=== PATIENT | female | born 1990 | race Caucasian/White ===

== ENCOUNTER 2022-03-11 03:11 | Inpatient (IN) | payer OTHER, SELFPAY ==
[2022-03-11] VITALS (32 sets, daily range): BP systolic 88–137; BP diastolic 34–79; PULSE 92–121; RESP 21–39; TEMP 36.7–39.1; O2SAT 94–100; BMI 27.6
--- NOTE | ~2022-03-11 | CT_ITS ---
EXAMINATION: CTA chest PE abdomen pel DATE: 03/11/2022 10:00 INDICATION: Chest pain. TECHNIQUE: Computed tomography angiography (CTA) of the chest was performed with 100 mL Omnipaque-350 intravenous contrast timed to evaluate the pulmonary arteries. Coronal maximum intensity projection 3D-reconstructions were created by the technologist. Computed tomography (CT) of the abdomen and pelv is was performed with intravenous contrast. Automated exposure control and iterative reconstruction t echnique were employed. The dose-length product was 815.75 mGy-cm. COMPARISON: None. FINDINGS: CTA chest: The lungs demonstrate diffuse smooth septal thickening. There are nodules and patchy airsp lilly opacities involving all lobes. There are small right and moderate-sized left pleural effusions. T he heart size is normal. There is a small pericardial effusion. There is no pulmonary embolus. There is mediastinal and bilateral hilar lymphadenopathy. A left supraclavicular node measures [address] abdomen and pelvis: There is periportal edema in the liver. There are gallstones in the gallbladde r, which is distended. Gallbladder wall thickening is noted. There is moderate splenomegaly. The panc reas, adrenal glands, and kidneys are normal. There is a 4.8 cm mass in left ovary measuring soft tis marilu attenuation. There are no dilated loops of bowel. The appendix is normal. There is a catheter in right common femoral vein with tip in right common iliac vein. There is mild periportal lymphadenopat hy. There is no free intraperitoneal fluid. The bones are unremarkable. IMPRESSION: 1. No pulmonary embolus. Sensitivity is mildly decreased by motion artifact. 2. Diffuse lung disease, likely a combination of pulmonary edema and pneumonia. 3. Small right and moderate-sized left pleural effusions. 4. Small pericardial effusion. 5. Mediastinal, left supraclavicular, and periportal lymphadenopathy, likely reactive. 6. Cholelithiasis. Gallbladder distention may be secondary to fasting or acute cholecystitis. Correla te with physical exam. 7. 4.8 m mass in left ovary, most likely a hemorrhagic cyst. Pelvis ultrasound is recommended. 8. Moderate splenomegaly. Reviewed, dictated and finalized at location A. CHECKER IMPRESSION: 1. No pulmonary embolus. Sensitivity is mildly decreased by motion artifact. 2. Diffuse lung disease, likely a combination of pulmonary edema and pneumonia. 3. Small right and moderate-sized left pleural effusions. 4. Small pericardial effusion. 5. Mediastinal, left supraclavicular, and periportal lymphadenopathy, likely re active. 6. Cholelithiasis. Gallbladder distention may be secondary to fasting or acute cholecystitis. Correlate with physical exam. 7. 4.8 m mass in left ovary, most likely a hemorrhagic cyst. Pelvis ultrasound is recommended. 8. Moderate splenomegaly.
--- NOTE | ~2022-03-11 | XR_ITS ---
XR chest 1V portable DATE: 03/19/2022 05:58 INDICATION: Respiratory failure TECHNIQUE: Portable AP chest 03/19/2022 0518 hours COMPARISON: 03/14/2022 portable AP chest and 0510 hours FINDINGS: ET tube in satisfactory position 4.2 cm above brian. NG tube in satisfactory position of t he stomach. No central lines. Heart size is normal. There are persistent diffuse bilateral pulmonary infiltrates and mild left pleu ral effusion. IMPRESSION: Persistent diffuse bilateral pulmonary infiltrates and left pleural effusion Reviewed, dictated and finalized at location A. GER SHAREPOINT
--- NOTE | ~2022-03-11 | XR_ITS ---
XR chest PICC line DATE: 03/19/2022 12:08 INDICATION: PICC line placement TECHNIQUE: Portable supine AP chest on 03/19/2022 1152 hours COMPARISON: 03/19/2022 portable AP chest at 0518 hours FINDINGS: Interval placement of left upper extremity PIC catheter, the tip overlying the superior shanna a cava. Endotracheal and NG tubes in satisfactory position. There are extensive diffuse bilateral pulmonary infiltrates suggesting pulmonary edema, extensive pn eumonia and/or ARDS. Mild to moderate left pleural effusion. No pneumothorax. IMPRESSION: Extensive bilateral pulmonary infiltrates, increased since earlier today Mild left pleural effusion ET and NG tubes in satisfactory position Interval placement of left upper extremity PIC catheter, tip overlying superior vena cava Reviewed, dictated and finalized at Location A. Reviewed, dictated and finalized at location A. LLITE COMMUNICATIONS ENGINEER
--- NOTE | ~2022-03-11 | XR_ITS ---
EXAMINATION: XR chest 1V portable DATE: 03/16/2022 05:51 INDICATION: Pneumonia. TECHNIQUE: A single frontal view of the chest was obtained. COMPARISON: Chest single view 03/15/2022 FINDINGS: There are patchy airspace opacities in all lung zones bilaterally. There is a small loculat ed left pleural effusion. No pneumothorax. The heart size is normal. The endotracheal tube tip is 4.5 cm above the brian. The nasogastric tube tip is beyond the inferior margin of the radiograph, but a t least to the stomach. IMPRESSION: 1. Diffuse lung disease with slight improvement, consistent with pneumonia. 2. Stable small loculated left pleural effusion. Reviewed, dictated and finalized at location A. TRUING MACHINE OPERATOR
--- NOTE | ~2022-03-11 | US_ITS ---
EXAMINATION: US venous doppler UE DATE: 03/15/2022 16:36 INDICATION: Upper limb swelling TECHNIQUE: Grayscale images without and with compression and Doppler images of the bilateral upper ex tremity veins were obtained. COMPARISON: None. FINDINGS: The right internal jugular vein, subclavian vein, axillary vein, brachial vein, basilic vein, cephali c vein, radial vein, and ulnar vein are patent. The left internal jugular vein, subclavian vein, axillary vein, brachial vein, basilic vein, cephalic vein, radial vein, and ulnar vein are patent. IMPRESSION: 1. Patent bilateral upper extremity veins. No evidence of venous thrombosis. Reviewed, dictated and finalized at location A. TAL GROWING TECHNICIAN
--- NOTE | ~2022-03-11 | US_ITS ---
EXAMINATION: US venous doppler [facility] DATE: 03/11/2022 11:03 INDICATION: Lower limb swelling. TECHNIQUE: Grayscale ultrasound images without and with compression and Doppler ultrasound images of the bilateral lower extremity veins were obtained. COMPARISON: None. FINDINGS: The visualized portions of right common femoral vein, profunda (deep) femoral vein, femoral vein, pop liteal vein, peroneal veins, posterior tibial veins, and greater saphenous vein outflow are patent. The visualized portions of left common femoral vein, profunda femoral vein, femoral vein, popliteal v ein, peroneal veins, posterior tibial veins, and greater saphenous vein outflow are patent. IMPRESSION: 1. No deep venous thrombosis. Reviewed, dictated and finalized at location A. DILIGENCE COORDINATOR
--- NOTE | ~2022-03-11 | XR_ITS ---
XR chest PICC line DATE: 03/19/2022 12:08 INDICATION: PICC line readjustment TECHNIQUE: Portable supine AP chest on 03/19/2022 at 1155 hours COMPARISON: Portable AP chest on 03/19/2022 1152 hours FINDINGS: The left upper extremity PIC catheter is suggested with diminished acute angle near the tip . The tip overlies the superior vena cava. Persistent severe bilateral pulmonary infiltrates and mild to moderate left pleural effusion. ET and NG tubes in satisfactory position. IMPRESSION: Left upper extremity PIC catheter adjustment, distal tip overlies superior vena cava Reviewed, dictated and finalized at Location A. Reviewed, dictated and finalized at location A. CAGER IMPRESSION: Left upper extremity PIC catheter adjustment, distal tip overlies s uperior vena cava
--- NOTE | ~2022-03-11 | XR_ITS ---
EXAMINATION: XR chest ET placement, XR abdomen NG/feed tube insert DATE: 03/14/2022 11:09 INDICATION: Intubation and nasogastric tube insertion TECHNIQUE: 1. Frontal view of the chest was obtained. 2. AP view of the abdomen was obtained. COMPARISON: Chest radiograph dated 03/14/2022 FINDINGS: Endotracheal tube tip 3.4 cm above the brian. Nasogastric tube into the stomach but with distal tip collimated off the study on both the chest and abdomen radiographs. Improved aeration of the lungs with now more hazy airspace opacities throughout both lungs, still rel atively sparing the left apex with improvement in the more dense patchy airspace opacities suggesting this may be related to scattered subsegmental atelectasis. More dense opacities at the lung bases wi th obscuration of portions of the diaphragm on both the left and right consistent with small to moder ate bilateral posterior layering pleural effusions. No pneumothorax. Cardiac lead. No dilated loops o f gas-filled bowel in the visualized abdomen. IMPRESSION: 1. Endotracheal tube and nasogastric tubes in expected positions. 2. Improved aeration of the lungs with resolution of the more patchy perihilar airspace opacities whi ch likely represented subsegmental atelectasis. 2. Persistent basilar predominant diffuse hazy airspace opacities likely representing small to modera te-sized bilateral pleural effusions with associated atelectasis, pneumonia, mild pulmonary edema or some combination thereof. 3. Cardiomegaly. Reviewed, dictated and finalized at location A. TERIA OPERATOR IMPRESSION: 1. Endotracheal tube and nasogastric tubes in expected positions. 2. Improved aeration of the lungs with resolution of the more patchy perihilar airspace opacities which likely represented subsegmental atelectasis. 2. Persistent basilar predominant diffuse hazy airspace opacities likely repres enting small to moderate-sized bilateral pleural effusions with associated atel ectasis, pneumonia, mild pulmonary edema or some combination thereof. 3. Cardiomegaly.
--- NOTE | ~2022-03-11 | XR_ITS ---
EXAMINATION: XR chest 1V portable DATE: 03/12/2022 05:58 INDICATION: Pneumonia. TECHNIQUE: A single frontal view of the chest was obtained. COMPARISON: Chest single view 03/11/2022 FINDINGS: There are patchy airspace opacities in all lung zones bilaterally. There is a moderate-size d left pleural effusion. No pneumothorax. The heart size is normal. IMPRESSION: 1. Worsened diffuse lung disease, consistent with pneumonia. 2. Worsened moderate-sized left pleural effusion. Reviewed, dictated and finalized at location A. ECT EXECUTIVE
--- NOTE | ~2022-03-11 | XR_ITS ---
EXAMINATION: XR chest 1V portable DATE: 03/17/2022 06:14 INDICATION: Respiratory failure. TECHNIQUE: A single frontal view of the chest was obtained. COMPARISON: Chest single view 03/16/2022 FINDINGS: There are airspace opacities in all lung zones bilaterally. There is a moderate-sized locul ated left pleural effusion. No pneumothorax. The heart size is normal. The endotracheal tube tip is 4 .7 m above the brian. The nasogastric tube tip is beyond the inferior margin of the radiograph, but at least to the stomach. IMPRESSION: 1. Stable diffuse lung disease, consistent with pneumonia. 2. Worsened moderate-sized loculated left pleural effusion. Reviewed, dictated and finalized at location A. L SANDER OPERATOR
--- NOTE | ~2022-03-11 | XR_ITS ---
EXAMINATION: XR chest 1V portable DATE: 03/14/2022 10:00 INDICATION: Pneumonia TECHNIQUE: frontal view of the chest was obtained. COMPARISON: Chest radiograph dated 03/14/2022 at 5:21 AM FINDINGS: Again seen are patchy bilateral airspace opacities throughout both lungs relatively sparing the left upper lung zone. Continued gradual increase in the airspace opacities in the right upper lung zone, t he remainder without significant interval change. Most dense consolidation seen at the left lower monica g zone and medial right lower lung zone with blunting at the costophrenic angles consistent with asso ciated small bilateral pleural effusions, left greater than right. No pneumothorax. Heart size is nor mal. IMPRESSION: 1. Diffuse bilateral patchy airspace opacities with continued gradual increase in the right upper monica g zone which could represent worsening pulmonary edema and/or pneumonia. 2. Small bilateral pleural effusions, left greater than right with associated basilar atelectasis. Reviewed, dictated and finalized at location A. LOPMENTAL THERAPIST IMPRESSION: 1. Diffuse bilateral patchy airspace opacities with continued gradual increase in the right upper lung zone which could represent worsening pulmonary edema an d/or pneumonia. 2. Small bilateral pleural effusions, left greater than right with associated b asilar atelectasis.
--- NOTE | ~2022-03-11 | XR_ITS ---
EXAMINATION: [id number] DATE: 03/17/2022 12:06 INDICATION: Left pleural effusion status post thoracentesis. TECHNIQUE: A single frontal view of the chest was obtained. COMPARISON: Chest single view at 5:30 AM, chest CT 03/17/2022 FINDINGS: There are patchy airspace opacities and nodules involving all lung zones bilaterally. There are some cavitary nodules bilaterally. There is a small left pleural effusion. No pneumothorax. The heart size is normal. The endotracheal tube tip is 4.2 cm above the brian. The nasogastric tube tip is in the stomach. IMPRESSION: 1. Small left pleural effusion with improvement status post thoracentesis. 2. Diffuse lung disease with improved aeration at left lung base, consistent with pneumonia. Reviewed, dictated and finalized at location A. ER ENGINEER IMPRESSION: 1. Small left pleural effusion with improvement status post thoracentesis. 2. Diffuse lung disease with improved aeration at left lung base, consistent wi th pneumonia.
--- NOTE | ~2022-03-11 | US_ITS ---
EXAMINATION: US pelvic complete DATE: 03/11/2022 15:27 INDICATION: Cyst versus mass of the ovary TECHNIQUE: Multiple transabdominal sonographic images of the pelvis were obtained. COMPARISON: CT from today FINDINGS: Examination is limited by transabdominal only technique. The uterus measures 6.8 x 3.2 x 4. 9 cm. The endometrial complex measures 4 mm. The ovaries are not visualized however no adnexal abnorm ality is seen. The pelvic mass described on CT examination lies posterior to the uterus and is obscur ed by pelvic contents with transabdominal technique. A cystic area is seen posterior to the uterus bu t incompletely evaluated. There is no free fluid in the pelvis. IMPRESSION: 1. Limited evaluation of the known cystic pelvic mass due to transabdominal only technique. Reviewed, dictated and finalized at location F. TREATER IMPRESSION: 1. Limited evaluation of the known cystic pelvic mass due to transabdominal onl y technique.
--- NOTE | ~2022-03-11 | XR_ITS ---
EXAMINATION: XR chest 1V portable DATE: 03/13/2022 06:12 INDICATION: Pneumonia TECHNIQUE: frontal view of the chest was obtained. COMPARISON: Chest radiograph dated 03/12/2022 FINDINGS: Small lung volumes with persistent interstitial and airspace opacities throughout both lungs with low er lung predominance. Small bilateral pleural effusions. Heart size is normal. IMPRESSION: 1. Unchanged small amounts with diffuse bilateral interstitial and airspace opacities most prominent in the lower lung zones which could represent pulmonary edema and/or pneumonia. 2. Small bilateral pleural effusions. Reviewed, dictated and finalized at location A. WAY ENGINEER IMPRESSION: 1. Unchanged small amounts with diffuse bilateral interstitial and airspace opa cities most prominent in the lower lung zones which could represent pulmonary e eric and/or pneumonia. 2. Small bilateral pleural effusions.
--- NOTE | ~2022-03-11 | XR_ITS ---
EXAMINATION: XR chest 1V portable DATE: 03/11/2022 03:38 INDICATION: Left chest pain. Fever. TECHNIQUE: A single frontal view of the chest was obtained. COMPARISON: None. FINDINGS: There are airspace opacities in the mid and lower lung zones. No pleural effusion or pneumo thorax. The heart size is normal. IMPRESSION: 1. Airspace opacities in the mid and lower lung zones, consistent with atelectasis versus pneumonia. Reviewed, dictated and finalized at location A. OR PROPERTY ACCOUNTANT IMPRESSION: 1. Airspace opacities in the mid and lower lung zones, consistent with atelecta sis versus pneumonia.
--- NOTE | ~2022-03-11 | XR_ITS ---
XR chest-chest tube insert/pos DATE: 03/19/2022 13:27 INDICATION: Chest tube placement TECHNIQUE: Portable supine AP chest on 03/19/2022 1322 hours COMPARISON: 03/19/2022 portable supine AP chest FINDINGS: Interval placement of left thoracostomy tube from lateral approach, with the distal tip ove rlying the inferomedial left thorax. There is mild subcutaneous emphysema of the left lateral chest w all. No pneumothorax is evident. Persistent mild pleural effusion. Persistent extensive bilateral pulmonary infiltrates. ET and NG tubes in satisfactory position. Right upper extremity PIC catheter has changed position with the distal tip making a U-turn, the dist al tip directed laterally overlying the subclavian vein. Left upper extremity PIC catheter in superior vena cava. IMPRESSION: Left chest tube placement Right upper extremity PIC catheter tip has changed position since 1238 hours, the distal tip turning back upon itself, directed laterally overlying the subclavian vein Reviewed, dictated and finalized at Location A. Reviewed, dictated and finalized at location A. OSURGERY RESEARCH DIRECTOR IMPRESSION: Left chest tube placement Right upper extremity PIC catheter tip has changed position since 1238 hours, t he distal tip turning back upon itself, directed laterally overlying the subcla vian vein
--- NOTE | ~2022-03-11 | XR_ITS ---
XR chest 1V portable DATE: 03/18/2022 05:58 INDICATION: Respiratory failure. Mechanical ventilation. TECHNIQUE: Portable AP views on 03/14/2022 at 0510 hours COMPARISON: 03/17/2022 portable AP chest at 1158 hours FINDINGS: ET tube tip approximately 0.9 cm above brian. NG tube in stomach. Diffuse patchy bilateral pulmonary infiltrates persist in addition to mild left pleural effusion. No pneumothorax. IMPRESSION: Persistent diffuse patchy bilateral pulmonary infiltrates and small left pleural effusion Reviewed, dictated and finalized at location A. FF COUNSEL
--- NOTE | ~2022-03-11 | XR_ITS ---
EXAMINATION: XR chest 1V portable DATE: 03/15/2022 05:39 INDICATION: Pneumonia. TECHNIQUE: A single frontal view of the chest was obtained. COMPARISON: Chest single view 03/14/2022 FINDINGS: There is a small loculated left pleural effusion. There are airspace opacities in all lung zones bilaterally. No pneumothorax. The heart size is normal. The endotracheal tube tip is 4.2 cm abo ve the brian. The nasogastric tube tip is beyond the inferior margin of the radiograph, but at least to the stomach. IMPRESSION: 1. Diffuse lung disease with improvement at right lung base, consistent with pneumonia without or wit h superimposed pulmonary edema. 2. Stable small loculated left pleural effusion. Reviewed, dictated and finalized at location A. INSTALLER IMPRESSION: 1. Diffuse lung disease with improvement at right lung base, consistent with pn eumonia without or with superimposed pulmonary edema. 2. Stable small loculated left pleural effusion.
--- NOTE | ~2022-03-11 | XR_ITS ---
EXAMINATION: XR chest 1V portable DATE: 03/14/2022 05:28 INDICATION: Pneumonia TECHNIQUE: frontal view of the chest was obtained. COMPARISON: Chest radiograph dated 03/13/2022 FINDINGS: Patchy airspace opacities throughout both lungs with increase in the right upper lung zone. Small antonio ateral pleural effusions, left greater than right. No pneumothorax. The cardiomediastinal silhouette is within normal limits for AP technique. IMPRESSION: 1. Diffuse bilateral patchy airspace opacities with interval increase in the upper lung zone which co uld represent worsening pulmonary edema and/or pneumonia. 2. Small bilateral pleural effusions, left greater than right with associated basilar atelectasis. Reviewed, dictated and finalized at location A. CAL OFFICE ASSISTANT IMPRESSION: 1. Diffuse bilateral patchy airspace opacities with interval increase in the up per lung zone which could represent worsening pulmonary edema and/or pneumonia. 2. Small bilateral pleural effusions, left greater than right with associated b asilar atelectasis.
--- NOTE | ~2022-03-11 | XR_ITS ---
XR chest PICC line DATE: 03/19/2022 12:43 INDICATION: Right PICC line placement TECHNIQUE: Portable supine AP view on 03/19/2022 1238 hours COMPARISON: Portable AP chest on 03/19/2022 at 1155 hours FINDINGS: Interval placement of right upper extremity PIC catheter, the tip situated in the superior cavoatrial junction. Left upper extremity PIC catheter in similar position. ET and NG tubes in satisfactory position. Persistent severe bilateral pulmonary infiltrates. IMPRESSION: Right upper stomach the catheter placement in superior vena cava near superior cavoatrial junction Reviewed, dictated and finalized at Location A. Reviewed, dictated and finalized at location A. T TOSSER IMPRESSION: Right upper stomach the catheter placement in superior vena cava ne ar superior cavoatrial junction
--- NOTE | ~2022-03-11 | US_ITS ---
EXAMINATION: US thoracentesis DATE: 03/17/2022 12:02 INDICATION: pleural effusion TECHNIQUE: The procedure and its risks, benefits, and alternatives were discussed with the patient's grandmother. Potential risks discussed included bleeding, infection, and pneumothorax. She understood the risks and agreed to proceed. The skin was prepped and draped in sterile fashion. 1% lidocaine wa s used for local anesthesia. Under ultrasound guidance, a 5 Fr catheter with trochar was advanced int o the left pleural effusion. Fluid was aspirated. The catheter was removed, and a dressing was applie d. There were no immediate complications. FINDINGS: Ultrasound images demonstrate a left pleural effusion and the catheter within the fluid. IMPRESSION: 1. Successful ultrasound-guided thoracentesis yielding 1000 mL of felix-colored fluid. Reviewed, dictated and finalized at location A. [facility] NURSE SUPERVISOR IMPRESSION: 1. Successful ultrasound-guided thoracentesis yielding 1000 mL of felix-colore d fluid.
--- NOTE | ~2022-03-11 | US_ITS ---
EXAMINATION: US pelvic complete w TV DATE: 03/12/2022 15:43 INDICATION: Pelvic mass Comparison:03/11/2022 TECHNIQUE: Multiple transabdominal and endovaginal sonographic images of the pelvis performed. FINDINGS: The uterus measures 6 x 4 x 2.7 cm. Uterus is heterogeneous, although no discrete mass iden tified. The endometrial complex measures 2.5 mm. The right ovary measures 4.3 x 2.8 x 3.1 cm and the left ovary measures 5.8 x 4 x 4.2 cm. There is a left ovarian cyst measuring 5.7 x 3.7 x 3.4 cm. There are small follicles in each ovary. Normal doppl er signal in both ovaries. There is a large amount of free fluid in the pelvis. There are no abnormal masses seen on either jamie e. IMPRESSION: 1. Left ovarian cyst measuring 5.7 cm maximum dimension, containing internal septations. Recommend fo llow-up ultrasound in 4-6 weeks to assess for resolution. 2: Large amount of free fluid in the pelvis. Reviewed, dictated and finalized at location A. ER HEAD IMPRESSION: 1. Left ovarian cyst measuring 5.7 cm maximum dimension, containing internal se ptations. Recommend follow-up ultrasound in 4-6 weeks to assess for resolution. 2: Large amount of free fluid in the pelvis.
--- NOTE | ~2022-03-11 | CT_ITS ---
EXAMINATION:CT diagnostic chest wo con DATE: 03/17/2022 09:37 INDICATION: Pneumonia. Pleural effusion. TECHNIQUE: Computed tomography (CT) of the chest was performed without intravenous contrast. Automate d exposure control and iterative reconstruction technique were employed. The dose-length product (DLP ) was 402.10 mGy-cm. COMPARISON: Chest CT 03/11/2022 FINDINGS: There are scattered nodules in the lungs, many of which are cavitary, consistent with septi c emboli. There is smooth septal thickening in the lungs. There are airspace opacities with air bronc hograms in right middle lobe and right lower lobe. There are centrilobular nodules and tree-in-bud op acities in right lung, consistent with endobronchial spread of infection. There is a moderate-sized l oculated left pleural effusion. There is dependent atelectasis in left lung. There is a small right p leural effusion. The heart size is normal. No pericardial effusion. The endotracheal tube tip is in e xpected position above the brian. The nasogastric tube tip is beyond the inferior margin of the scan , but at least to the stomach. The bones are unremarkable. IMPRESSION: 1. Diffuse lung disease with worsening from 03/11/2022, consistent with pneumonia and superimposed mi ld pulmonary edema. 2. Worsened small right pleural effusion. Worsened moderate-sized loculated left pleural effusion. Reviewed, dictated and finalized at location A. SSING MACHINE OPERATOR IMPRESSION: 1. Diffuse lung disease with worsening from 03/11/2022, consistent with pneumon ia and superimposed mild pulmonary edema. 2. Worsened small right pleural effusion. Worsened moderate-sized loculated lef t pleural effusion.
--- NOTE | 2022-03-11 03:25 | ECG_ITS ---
Measurements Intervals [place] Rate: 124 P: 59 TN: 139 QRS: 45 QRSD: 97 T: 26 QT: 292 QTc: 420 Interpretive Statements SINUS TACHYCARDIA ABNORMAL ECG NO PREVIOUS ECG AVAILABLE FOR COMPARISON Electronically Signed On 03-11-2022 6:47:54 COMPUTING ARCHITECT by Jason Romero D.O.
--- NOTE | 2022-03-11 03:59 | ED.GENADULT ---
HPI - General Adult General Chief complaint: Chest Pain Stated complaint: chest pain Time Seen by Provider: 03/11/22 03:18 History of Present Illness HPI narrative: Patient 31-year-old female who presents the emergency department with chief complaint of chest pain. Patient reports has been having fevers body aches noticed that her arms have been swelling in her legs have been swelling the patient's noticed that she is at redness and swelling in her legs and ulcerations that developed. The patient denies IV drug use. Patient reports that her brother has had endocarditis before in the past. Related Data Allergies Allergy/AdvReac Type Severity Reaction Status Date / Time APPLE/PEARS Allergy Mild RASH Uncoded 12/10/08 11:12 Review of Systems Review of Systems: A 10 system review of systems was completed on the patient and is negative except for what is stated in the HPI. Nursing and ancillary documentation was reviewed. Exam Narrative: GENERAL: Ill appearing, well-nourished, and in no acute distress. HEAD: Normocephalic, atraumatic. EYES: PERRLA and EOMI. ENT: Nares clear, no rhinorrhea or epistaxis. Mucous membranes moist. NECK: Supple. No meningeal signs CHEST: Clear to auscultation. No respiratory distress. HEART: Tachycardic rate and rhythm. No murmur heard. Normal peripheral pulses. ABDOMEN: Soft, nontender, nondistended, normal active bowel sounds. EXTREMITIES: Normal range of motion. No edema. SKIN: Redness to bilateral lower extremities. NEURO: No focal deficits. Alert and oriented x3. PSYCH: Normal mood and affect. Course Vital Signs Vital signs: Vital Signs Temperature 39.1 C H 03/11/22 04:04 Pulse Rate 121 H 03/11/22 04:04 Respiratory Rate 34 H 03/11/22 04:04 Blood Pressure 113/58 L 03/11/22 04:04 Pulse Oximetry 100 03/11/22 04:04 Oxygen Delivery Room Air 03/11/22 04:04 Temperature 37.1 C 03/11/22 06:52 Pulse Rate 100 03/11/22 07:10 Respiratory Rate 34 H 03/11/22 06:52 Blood Pressure 107/58 L 03/11/22 07:10 Pulse Oximetry 98 03/11/22 06:52 Oxygen Delivery Nasal Cannula 03/11/22 06:48 Oxygen Flow Rate 4 03/11/22 06:48 Procedures Central Line Placement Right Femoral: Central Line Date: 03/11/22 Central Line Time: 06:29 Discussed w/ the patient/family/POA,the placement of a central venous catheter, including its clinical necessity/indication & associated potential risks, benifits and alternatives.: Yes The patient/family/POA understand(s) and acknowledge(s) the need to proceed with central venous catheter insertion as an important element of the patient's clinical management.: Yes Time Out Performed: Yes Patient Placed on Monitor/Pulse Ox: Yes Max. Sterile Barrier Technique: Caps, large sterile sheet and hand hygiene Central Line Prep: 2% chlorhexidine scrub and sterile drapes applied Technique: US-Guided Local Anesthetic: lidocaine 1% Amount of anesthesia used (mL): 5 Ultrasound Used for Placement: Yes Central Line Lumen Inserted: triple Post Procedure: sutured in place, good blood return, all ports aspirated, flushed, capped and sterile dressing applied Patient Tolerated Procedure: well Complications: none Medical Decision Making Vital Signs Vital Signs: Vital Signs Temperature 39.1 C H 03/11/22 04:04 Pulse Rate 121 H 03/11/22 04:04 Respiratory Rate 34 H 03/11/22 04:04 Blood Pressure 113/58 L 03/11/22 04:04 Pulse Oximetry 100 03/11/22 04:04 Oxygen Delivery Room Air 03/11/22 04:04 Temperature 37.1 C 03/11/22 06:52 Pulse Rate 100 03/11/22 07:10 Respiratory Rate 34 H 03/11/22 06:52 Blood Pressure 107/58 L 03/11/22 07:10 Pulse Oximetry 98 03/11/22 06:52 Oxygen Delivery Nasal Cannula 03/11/22 06:48 Oxygen Flow Rate 4 03/11/22 06:48 Lab Data Result diagrams: 03/11/22 04:40 03/11/22 04:40
--- NOTE | 2022-03-11 04:09 | PC.NURSE ---
This RN attempted IV access x2 without success. printer assistant and ERP aware.
[2022-03-11] MEDS: SODIUM CHLORIDE 0.9% IV 1,000 ML 999 ML IV CONT ×2 (04:41→06:32)
[2022-03-11 05:06] LABS: Hemoglobin 10.9 g/dL (12.0-15.0); Mean Corpuscular HGB Conc 34.1 g/dl (32-36); Mean Corpuscular Volume 79.4 fl (80-100); Mean Platelet Volume 11.6 fl (7.4-10.4); Platelet Count Result 100 k/mm3 (150-375); Red Blood Count 4.03 M/mm3 (4.2-5.4); White Blood Count 5.6 K/mm3 (4.5-10.0)
[2022-03-11 05:13] LABS: INR 1.3; Lactic Acid Reflex 2.2 mmol/L (0.7-2.0); Magnesium 1.4 mg/dL (1.6-2.3); Prothrombin Time 15.5 Seconds (11.1-14.7)
[2022-03-11 05:14] LABS: Partial Thromboplastin Time 43.1 SECONDS (22.3-36.8)
[2022-03-11 05:21] LABS: Lipase < 10 U/L (23-300)
[2022-03-11 05:24] LABS: Alanine Aminotransferase 37 U/L (6-35); Alkaline Phosphatase 104 U/L (38-126); Anion Gap 13 mmol/L (8-16); Aspartate Amino Transferase 50 U/L (14-36); Bilirubin,Total 0.7 mg/dL (0.2-1.3); Blood Urea Nitrogen 10 mg/dL (7-17); Calcium 7.6 mg/dL (8.4-10.2); Carbon Dioxide 24 mmol/L (22-30); Chloride 91 mmol/L (98-107); Estimated Glomerular Filt Rate > 60; Glucose 111 mg/dL (65-110); NT Pro B Type Natriuretic Pept 412 pg/mL (5-100); Potassium 2.9 mmol/L (3.4-5.0); Sodium 128 mmol/L (137-145)
[2022-03-11 05:26] LABS: Troponin I 0.014 ng/mL (0.000-0.034)
[2022-03-11 05:31] LABS: CRP 23.7 mg/dL (<1.0)
[2022-03-11 05:39] LABS: Influenza A QL RT-PCR Negative (Negative); Influenza B QL RT-PCR Negative (Negative); SARS-CoV-2 RNA PCR Negative
[2022-03-11 05:40] LABS: Anisocytosis 2+ (NORMAL); Band Neutrophils Percent 60 % (0-6); Giant Platelets Present; Lymphocytes Absolute Manual 0.56 K/mm3 (1.1-4.5); Metamyelocytes Percent 2 %; Myelocytes Percent 4 %; Neutrophils Absolute Manual 4.64 K/mm3 (1.7-7.2); Neutrophils Percent Manual 23 % (46-73); Platelet Estimate Adequate (Adequate); Promyelocytes Percent 1 %; Total Cells Counted 100
[2022-03-11 05:41] LABS: Atypical Lymphocytes Present; Burr Cells 1+ (NORMAL); Crenated RBC 1+ (NORMAL); Macrocytosis 1+ (NORMAL); Microcytosis 1+ (NORMAL); Poikilocytosis 1+ (NORMAL); Schistocytes 1+ (NORMAL)
[2022-03-11 06:02] LABS: Erythrocyte Sedimentation Rate 33 mm/hr (0-20)
[2022-03-11 06:06] LABS: Procalcitonin 8.7 ng/mL
[2022-03-11] MEDS: MAGNESIUM SULF 2 GM/WATER 50ML 2 GM/50 ML BAG IVPB (06:31)
[2022-03-11] MEDS: SODIUM CHLORIDE 0.9% IV 1,000 ML 500 ML IV CONT (06:57)
[2022-03-11] MEDS: NOREPINEPHRINE 8 MG/D5W 250 ML 8 MG/250 ML BAG 9.38 MG IV CONT (07:06)
[2022-03-11 08:00] LABS: Reflex Lactic Acid Yes or No Add Lactic
[2022-03-11 08:01] LABS: Appearance Urine Slightly Cloudy (Clear); Bilirubin Urine Negative (Negative); Blood Urine 3+ (Negative); Color Urine Yellow (Yellow); Glucose Urine UA Negative (Negative); Ketones Urine Negative (Negative); Leukocyte Esterase Ur 2+ LEU/UL (Negative); Nitrate Urine Negative (Negative); Protein Urine 1+ mg/dL (Negative); Specific Grav Ur <= 1.005 (1.001-1.035)
[2022-03-11 08:04] LABS: Amphetamine Screen Urine Positive (Negative); Barbiturate Screen Urine Negative (Negative); Benzodiazepines Screen Urine Negative (Negative); Cannabinoid Screen Urine Negative (Negative); Cocaine Screen Urine Negative (Negative); Methadone Screen Urine Negative (Negative); Opiate Screen Urine Negative (Negative); Phencyclidine Screen Urine Negative (Negative)
[2022-03-11 08:07] LABS: Bacteria Urine Trace /hpf; Mucus Urine Rare /lpf; RBC Urine 51-75 /hpf (0-2); Squamous Epithelial Cell Urine Occasional /hpf (Few); WBC Urine 21-30 /hpf
[2022-03-11 08:15] LABS: Add Urine Microscopic? YES
--- NOTE | 2022-03-11 08:42 | ADMGEN ---
This patient, Val Don, was admitted to Intensive Care Unit-5. Patient/family oriented to hospital policies and general routines including ID bracelet, bed and alarms, visiting hours, pain management, procedures, bathroom and other care routines, personal items, smoking policy, room service/diet, and visiting hours. Information on how to activate the Rapid Response Team has been discussed. Patient/Family are encouraged to report perceived risks to care and to ask questions if they do not understand what they are told or what they should do.
--- NOTE | 2022-03-11 09:14 | ECHO_ITS ---
Patient Info Name: Val Don Age: 31 years : 1990 Gender: Female Ht: 71 in Wt: 198 lbs BSA: 2.14 m2 HR: 94 bpm BP: 110 / 69 mmHg Exam Date: 03/11/2022 11:21 AM Exam Location: [facility] Patient Status: Inpatient Admit Date: 03/11/2022 Staff Ordering Physician: Cristi Hernandez MD Ross Carrier Driver: Esdras Gupta RDCS, RT Attending Provider: Lane Sims MD Referring Physician: David MEHTA; Exam Type: CA echo doppler color flow Study Info Indications - R/O endocarditis, fevers R65.21 - Severe sepsis with septic shock Complete two-dimensional, color flow and Doppler transthoracic echocardiogram is performed. Strain analysis performed. Summary 1. Complete two-dimensional, color flow and Doppler transthoracic echocardiogram is performed. 2. Left ventricular chamber dimension is mildly enlarged. 3. Left ventricular systolic function is normal, estimated at 60-65%. 4. The left ventricular diastolic function is normal. 5. E/e' 5 is not elevated. 6. Global longitudinal strain is normal at -21.1%. 7. Normal inferior vena cava with <50% collapse upon inspiration consistent with elevated right atrial pressure, 10 mmHg. Left Ventricle E/e' 5 is not elevated. Global longitudinal strain is normal at -21.1%. Left ventricular chamber dimension is mildly enlarged. Left ventricular systolic function is normal, estimated at 60-65%. The left ventricular diastolic function is normal. Right Ventricle Right ventricular systolic function is normal and with normal TAPSE 2.8 cm. Right ventricular chamber dimension is normal. Left Atria Left atrial chamber dimension is normal. Right Atria Right atrial chamber dimension is normal. Aortic Valve The aortic valve is trileaflet. There is no aortic valve stenosis. There is no aortic valve regurgitation. No aortic valve vegetation visualized. Pulmonic Valve There is no pulmonic regurgitation. No pulmonic valve vegetation visualized. Mitral Valve There is no mitral valve stenosis. There is no mitral valve regurgitation. No mitral valve vegetation visualized. Tricuspid Valve There is no tricuspid valve regurgitation. No tricuspid valve vegetation visualized. Pericardium/Pleural There is no pericardial effusion. Inferior Vena Cava Normal inferior vena cava with <50% collapse upon inspiration consistent with elevated right atrial pressure, 10 mmHg. Aorta The aortic root size at the sinus of Valsalva is normal. Left Ventricular Outflow Tract Name Value Normal LVOT 2D LVOT Diameter 2.0 cm LVOT Doppler LVOT Peak Gradient 4 mmHg LVOT Mean Gradient 2 mmHg LVOT VTI 18 cm LVOT VTI/AV VTI Ratio 0.9 LVOT Stroke Volume 57 ml LVOT CO 5.3 l/min LVOT CI 2.5 l/min/m2 Mitral Valve Name Value Normal
--- NOTE | 2022-03-11 09:19 | WPDCNINT ---
Assessment and Plan Assessment and plan (1) Septic shock: Code(s): A41.9 - Sepsis, unspecified organism; R65.21 - Severe sepsis with septic shock Status: Acute Assessment and Plan: Patient presented with fevers, chills, not feeling well, tachypnea, cough, shortness of breath -likely source pneumonia, UTI, possible endocarditis -was found to be hypotensive in the ER, was given 2.5 L IV fluid bolus on 03/11, on admission -central line was placed in the right femoral vein on 03/11 -started on Levophed, will maintain MAP > 65 mm Hg for adequate end organ perfusion -lactic acid was 2.2, lipase within normal limits, CRP 23.7, increased procalcitonin -will trend lactic acid -03/11 blood and urine cultures have been obtained -and was started on vancomycin and Zosyn on 03/11 in the ER, will continue -echocardiogram has been ordered (2) Pneumonia: Code(s): J18.9 - Pneumonia, unspecified organism Status: Acute Assessment and Plan: Patient presented with cough, fevers, chills. Cough is productive of yellow-colored sputum. -03/11 Chest x-ray on admission shows bilateral infiltrates, -03/11/2022 CT scan chest/abdomen/pelvis did not show any pulmonary embolism, diffuse lung disease likely a combination of pulmonary edema pneumonia, small right and moderate size left pleural effusion, small pericardial effusion. Mediastinal left supraclavicular and pratima portal lymphadenopathy likely reactive. Cholelithiasis, 4.8 cm mass in left ovary, most likely hemorrhagic cyst, pelvic ultrasound recommended, moderate splenomegaly -tachypnea likely related to pneumonia -will add bronchodilators (3) UTI (urinary tract infection): Code(s): N39.0 - Urinary tract infection, site not specified Status: Acute Assessment and Plan: UA was reflective of a UTI, antibiotics as above, cultures obtained (4) Drug abuse: Code(s): F19.10 - Other psychoactive substance abuse, uncomplicated Status: Acute Assessment and Plan: Urine drug screen was positive for opiates and amphetamines -patient does agree to methamphetamine use and IV fentanyl use. When asked if she shares needles she did say yes -will watch for withdrawal (5) Swelling of lower extremity: Code(s): M79.89 - Other specified soft tissue disorders Status: Acute Assessment and Plan: Bilateral lower extremity pitting edema with multiple skin lesions -patient denies any pets at home -she does state she picks on her skin on a for a and lower extremities -could be related to cellulitis, right heart failure -proBNP was 412 -will obtain lower extremity venous Dopplers (6) Thrombocytopenia: Code(s): D69.6 - Thrombocytopenia, unspecified Status: Acute Assessment and Plan: Thrombocytopenia secondary to splenomegaly as seen on CT of the abdomen and/or septic shock -continue to monitor (7) Electrolyte abnormality: Code(s): E87.8 - Other disorders of electrolyte and fluid balance, not elsewhere classified Status: Acute Assessment and Plan: Will replace potassium and magnesium Plan DVT prophylaxis: Lovenox SQ Stress ulcer prophylaxis: Protonix Nutrition: NPO for now Discussed with mother, I updated her with patient's condition and plan of care. The mother is aware that the patient is came to the ICU and we are still in the process of getting workup done, she is aware that patient is going to be going for CT scans of the chest, abdomen, pelvis. I also told her that we will be getting an echocardiogram and lower extremity venous Dopplers. Mother states that patient lives with her friend. Code Status: Full code Critical Care Time Spent: 51 minutes Due to a high probability of clinically significant, life threatening deterioration, the patient required my highest level of preparedness to intervene emergently and I personally spent this critical care time directly and personally managing the
[2022-03-11] MEDS: ENOXAPARIN 40 MG/0.4 ML SYRINGE SUB-Q (11:09)
[2022-03-11] MEDS: KCL 40 MEQ/WATER 100 ML 100 ML 25 ML IVPB (11:09)
[2022-03-11] MEDS: SODIUM CHLORIDE 0.9% IV 1,000 ML 100 ML IV CONT ×2 (11:34→21:04)
[2022-03-11 12:31] LABS: Lactic Acid 2.2 mmol/L (0.7-2.0)
[2022-03-11 12:44] LABS: Troponin I 0.014 ng/mL (0.000-0.034)
[2022-03-11] MEDS: ONDANSETRON INJ 4 MG/2 ML VIAL IV PUSH (14:03)
[2022-03-11] MEDS: LEVALBUTEROL NEB 1.25 MG/3 ML 0.63 MG INHALATION ×2 (14:12→21:31)
[2022-03-11] MEDS: IPRATROPIUM BR 0.02% INH SOLN 0.5 MG/2.5 ML VIAL INHALATION ×2 (14:12→21:31)
--- NOTE | 2022-03-11 14:20 | PM.IMHP ---
H&P: HPI History of Present Illness Date/Time: 03/11/22 14:20 Chief Complaint: SOB Narrative: 31-year-old female with no active past medical history was presented to the ED today with complaints of fever, lower extremity swelling, chills, diffused pain. Patient stated that she has got endocarditis, patient has history of smoking meth on a daily basis and IV fentanyl use. Denies any cocaine or marijuana use. The patient was noted to be hypotensive 2 L of IV fluid bolus was given. Patient was started on Levophed drip, patient was noted to have a heart rate of 122. INR of 1.3 positive for lactic acid Review of Systems Constitutional: Constitutional: Reports fatigue and Reports lethargy Eyes: Eyes: Reports as per HPI ENT: Reports Normal hearing present Cardiovascular: Cardiovascular: Reports pedal edema, Reports leg edema and Reports palpitations Respiratory: Respiratory: Reports no additional respiratory complaints and Reports dyspnea on exertion Neurologic: Reports system reviewed and no additional complaints, except as documented PMFSH Social History Social History Smoking packs per day: 1 Smoking cigarettes per day: 20.0 Years smoked: 15 Smoking pack-years: 15.00 Smoking status: Former smoker Alcohol intake: never Substance use: never Other substance usage details: toxicology screen positive for amphetamines--pt. denies drug use Lack of Transportation: No Lack of Food: Never True Current Housing: I Have Housing Concerned About Future Housing: No Difficulty Paying Gas/Electric Bills: No Difficulty Paying for Meds: No Currently Unemployed: No Education: Decline to Answer Difficulty w/ Childcare or Family Care: No Spiritual care concerns: No Meds Home Medications and Allergies Home Medications Medication Instructions Recorded Confirmed Type No Home Medications 03/11/22 03/11/22 History Allergies Allergy/AdvReac Type Severity Reaction Status Date / Time APPLE/PEARS Allergy Mild RASH Uncoded 12/10/08 11:12 Vital Signs Vital Signs - 24 hr 03/11/22 04:04 03/11/22 07:06 03/11/22 07:08 Temperature 39.1 C H Pulse Rate 121 H 106 H 106 H Respiratory Rate 34 H Blood Pressure 113/58 L 91/38 L 88/40 L Pulse Oximetry 100 Oxygen Delivery Room Air Oxygen Flow Rate 03/11/22 07:10 03/11/22 06:48 03/11/22 06:52 Temperature 37.1 C Pulse Rate 100 107 H Respiratory Rate 34 H Blood Pressure 107/58 L 98/34 L Pulse Oximetry 97 98 Oxygen Delivery Nasal Cannula Oxygen Flow Rate 4 03/11/22 07:42 03/11/22 07:45 03/11/22 07:46 Temperature 36.7 C Pulse Rate 103 H 105 H 106 H Respiratory Rate 39 H 30 H 28 H Blood Pressure 105/61 105/61 Pulse Oximetry 95 94 95 Oxygen Delivery Oxygen Flow Rate 03/11/22 08:59 03/11/22 12:00 03/11/22 13:55 Temperature 36.7 C 36.7 C 39.0 C H Pulse Rate 100 110 H Respiratory Rate 32 H 34 H Blood Pressure 111/61 119/79 Pulse Oximetry 95 96 Oxygen Delivery Oxygen Flow Rate 03/11/22 14:12 03/11/22 14:12 Temperature Pulse Rate 113 H Respiratory Rate 35 H Blood Pressure Pulse Oximetry 98 Oxygen Delivery Nasal Cannula Oxygen Flow Rate 4 Exam Const: General: comfortable HENMT: Ears: TM's normal bilaterally Face/Nose/Sinus: Normal nares present Mouth: Yes moist mucous membranes Eyes: General: appearance normal, both eyes and all related structures Sclera: sclerae normal Neck: Neck: supple and no JVD Resp: Auscultation: crackles, rhonchi and diminished lung sounds Cardio: Rate: regular rate Rhythm: regular rhythm GI: GI Palp: Yes Soft to palpation, Yes Tenderness to palpation present (GI) and No Guarding due to palpation present (GI) Skin: Lesions: lesion noted Rashes: rashes noted Neuro: Speech: normal speech Motor exam (neuro): Normal motor muscle tone present throughout Sensory Exam: norm
[2022-03-11] MEDS: hetaSTARCH 6%/NACL 500 ML 250 ML IV CONT (14:36)
[2022-03-11 15:11] LABS: Alveolar/Arterial O2 Gradient 135.1 mmHg; Base Excess ABG -0.9 mEq/l (+/-2.0); Fractional Inspired Oxygen 32 %; HCO3 ABG 21.9 mEq/l (22.0-26.0); Oxygen Content ABG 14.2 %vol (16.0-22.0); Oxygen Saturation ABG 92.2 % (95.0-100.0); Oxyhemoglobin 90.7 % THb (90.0-100.0); PCO2 ABG 30.1 mmHg (35.0-45.0); PO2 ABG 57.8 mmHg (80.0-100.0); PO2 FiO2 Ratio Arterial Blood 1.81 %; Total Hemoglobin 11.1 g/dL (12.0-18.0); pH ABG 7.479 (7.350-7.450)
[2022-03-11 15:12] LABS: Device NASAL CANNULA; Modified Allen's Test Pass; Site Drawn RIGHT RADIAL
--- NOTE | 2022-03-11 21:05 | PC.NURSE ---
At 210, found levophed drip at 4 mg/min but documented in the MAR at 1 mg/min. Titration changes made in the MAR at this time. All pt VSS.
[2022-03-12] VITALS (24 sets, daily range): BP systolic 98–114; BP diastolic 56–73; PULSE 65–110; RESP 17–34; TEMP 36.4–38.3; O2SAT 94–100
[2022-03-12] MEDS: ONDANSETRON INJ 4 MG/2 ML VIAL IV PUSH (00:34)
[2022-03-12] MEDS: IPRATROPIUM BR 0.02% INH SOLN 0.5 MG/2.5 ML VIAL INHALATION ×3 (02:25→20:55)
[2022-03-12] MEDS: LEVALBUTEROL NEB 1.25 MG/3 ML 0.63 MG INHALATION ×3 (02:25→20:56)
[2022-03-12 06:10] LABS: Lactic Acid Reflex 1.5 mmol/L (0.7-2.0)
[2022-03-12] MEDS: SODIUM CHLORIDE 0.9% IV 1,000 ML 100 ML IV CONT (06:28)
[2022-03-12 06:32] LABS: Hematocrit 28.8 % (37.0-47.0); Hemoglobin 9.6 g/dL (12.0-15.0); Immature Platelet Fraction Pct 13.4 % (0.9-11.2); Mean Corpuscular HGB Conc 33.3 g/dl (32-36); Mean Corpuscular Hemoglobin 27.3 pg (26-34); Mean Corpuscular Volume 81.8 fl (80-100); Mean Platelet Volume 12.4 fl (7.4-10.4); Platelet Count Result 75 k/mm3 (150-375); Red Blood Count 3.52 M/mm3 (4.2-5.4); Red Cell Distribution Width 16.7 % (11.5-14.5); White Blood Count 7.7 K/mm3 (4.5-10.0)
[2022-03-12 06:43] LABS: Alanine Aminotransferase 22 U/L (6-35); Albumin Level 1.9 g/dL (3.5-5.1); Alkaline Phosphatase 90 U/L (38-126); Anion Gap 8 mmol/L (8-16); Aspartate Amino Transferase 24 U/L (14-36); Bilirubin,Total 0.8 mg/dL (0.2-1.3); Blood Urea Nitrogen 7 mg/dL (7-17); Calcium 6.8 mg/dL (8.4-10.2); Carbon Dioxide 27 mmol/L (22-30); Chloride 99 mmol/L (98-107); Estimated CRCL calculation 173 ml/min; Estimated Glomerular Filt Rate > 60; Glucose 97 mg/dL (65-110); Phosphorus 2.7 mg/dL (2.5-4.5); Potassium 2.7 mmol/L (3.4-5.0); Sodium 134 mmol/L (137-145)
[2022-03-12 07:35] LABS: CRP 27.2 mg/dL (<1.0)
[2022-03-12 07:50] LABS: pH ABG 7.474 (7.350-7.450)
[2022-03-12 07:51] LABS: Base Excess ABG 2.8 mEq/l (+/-2.0); HCO3 ABG 26.4 mEq/l (22.0-26.0); PCO2 ABG 36.8 mmHg (35.0-45.0); PO2 ABG 92.5 mmHg (80.0-100.0)
[2022-03-12 07:54] LABS: Oxygen Saturation ABG 97.5 % (95.0-100.0); Total Hemoglobin 11.2 g/dL (12.0-18.0)
[2022-03-12 07:55] LABS: Alveolar/Arterial O2 Gradient 222.6 mmHg; Carboxyhemoglobin 0.2 % THb (0-2.0); Fractional Inspired Oxygen 50 %; Methemoglobin ABG 0.4 %THb (0-1.5); Oxygen Content ABG 15.3 %vol (16.0-22.0); Oxyhemoglobin 96.1 % THb (90.0-100.0); PO2 FiO2 Ratio Arterial Blood 1.85 %; Reduced Hemoglobin 3.3 %THb (0-5.0); Site Drawn RIGHT RADIAL
[2022-03-12 07:56] LABS: Device HIGH FLOW THERAPY; Modified Allen's Test Pass
--- NOTE | 2022-03-12 08:13 | WPDCN ---
Assessment and Plan Assessment and plan (1) Ovarian cyst: Code(s): N83.209 - Unspecified ovarian cyst, unspecified side Status: Acute Assessment and Plan: Val Don is a 31 year old femaleWho presented emergency department with fever and lower extremity swelling. During her evaluation a ovarian cyst was observed. This was a CT scan. She has no pelvic pain. She has no vaginal bleeding. She has no abnormal vaginal discharge. We will repeat pelvic ultrasound with transvaginal component. We will make some judgments about the cyst but likely just have her follow-up after her hospitalization for monitoring of the cyst potential treatment should there be symptoms are suspicious nature. (2) Sepsis: Code(s): A41.9 - Sepsis, unspecified organism Status: Acute HPI Data of Consult Date/Time: 03/12/22 08:13 Requesting Physician: Lane Sims MD Primary Care Provider: UNKNOWN,DOCTOR Consult Narrative Narrative: Val Don is a 31 year old femaleWho presented emergency department with fever and lower extremity swelling. During her evaluation a ovarian cyst was observed. This was a CT scan. She has no pelvic pain. She has no vaginal bleeding. She has no abnormal vaginal discharge. We will repeat pelvic ultrasound with transvaginal component. We will make some judgments about the cyst but likely just have her follow-up after her hospitalization for monitoring of the cyst potential treatment should there be symptoms are suspicious nature. [facility] Social History Social History Smoking packs per day: 1 Smoking cigarettes per day: 20.0 Years smoked: 15 Smoking pack-years: 15.00 Smoking status: Former smoker Alcohol intake: never Substance use: never Other substance usage details: toxicology screen positive for amphetamines--pt. denies drug use Lack of Transportation: No Lack of Food: Never True Current Housing: I Have Housing Concerned About Future Housing: No Difficulty Paying Gas/Electric Bills: No Difficulty Paying for Meds: No Currently Unemployed: No Education: Decline to Answer Difficulty w/ Childcare or Family Care: No Spiritual care concerns: No Meds Home Medications and Allergies Home Medications Medication Instructions Recorded Confirmed Type No Home Medications 03/11/22 03/11/22 History Allergies Allergy/AdvReac Type Severity Reaction Status Date / Time APPLE/PEARS Allergy Mild RASH Uncoded 12/10/08 11:12 Vital Signs Vital Signs - 24 hr 03/11/22 08:59 03/11/22 12:00 03/11/22 13:55 Temperature 98.1 F 98.0 F 102.2 F H Pulse Rate 100 110 H Respiratory Rate 32 H 34 H Blood Pressure 111/61 119/79 Pulse Oximetry 95 96 Oxygen Delivery Oxygen Flow Rate Fraction of Inspired Oxygen 03/11/22 14:12 03/11/22 14:12 03/11/22 14:25 Temperature 100.2 F H Pulse Rate 113 H Respiratory Rate 35 H Blood Pressure Pulse Oximetry 98 Oxygen Delivery Nasal Cannula Oxygen Flow Rate 4 Fraction of Inspired Oxygen 03/11/22 08:45 03/11/22 13:53 03/11/22 14:00 Temperature Pulse Rate 98 120 H 118 H Respiratory Rate Blood Pressure 111/61 137/77 Pulse Oximetry Oxygen Delivery Oxygen Flow Rate Fraction of Inspired Oxygen 03/11/22 14:05 03/11/22 14:10 03/11/22 14:15 Temperature Pulse Rate 118 H 116 H 117 H Respiratory Rate Blood Pressure Pulse Oximetry Oxygen Delivery Oxygen Flow Rate Fraction of Inspired Oxygen 03/11/22 14:20 03/11/22 15:15 03/11/22 15:30 Temperature Pulse Rate 117 H 116 H 117 H Respiratory Rate Blood Pressure 124/69 129/74 105/55 L Pulse Oximetry Oxygen Delivery Oxygen Flow Rate Fraction of Inspired Oxygen 03/11/22 10:00 03/11/22 12:00 03/11/22 12:00 Temperature Pulse Rate 101 H 97 Respiratory Rate Blood Pressure
[2022-03-12] MEDS: ENOXAPARIN 40 MG/0.4 ML SYRINGE SUB-Q (08:53)
[2022-03-12] MEDS: PANTOPRAZOLE SODIUM IV 40 MG VIAL IV PUSH (08:53)
--- NOTE | 2022-03-12 09:21 | WPDINTPN ---
Progress Note: A&P Assessment and Plan (1) Septic shock: Code(s): A41.9 - Sepsis, unspecified organism; R65.21 - Severe sepsis with septic shock Status: Acute Assessment and Plan: Patient presented with fevers, chills, not feeling well, tachypnea, cough, shortness of breath -likely source pneumonia, UTI, possible endocarditis -was found to be hypotensive in the ER, was given 2.5 L IV fluid bolus on 03/11, on admission, additional IV fluid bolus was given in the ICU after she was fluid responsive by NICOM -central line was placed in the right femoral vein on 03/11 -wean Levophed to maintain MAP > 65 mm Hg for adequate end organ perfusion -lactic acid has normalized, lipase within normal limits, CRP 27.2, increased procalcitonin -will trend lactic acid -03/11 blood cultures growing Staph aureus 2/2 bottles -03/11 urine cultures pending urine cultures pending -continue vancomycin and Zosyn on (03/11) -03/11/2022 echocardiogram: LV chamber dimension is mildly enlarged, LV systolic function is normal EF 60-65%, LV diastolic function is normal (2) Pneumonia: Code(s): J18.9 - Pneumonia, unspecified organism Status: Acute Assessment and Plan: Patient presented with cough, fevers, chills. Cough is productive of yellow-colored sputum. -chest x-ray this morning: Worsened diffuse lung disease consistent with pneumonia, worsened moderate size left pleural effusion -continue bronchodilators -continue antibiotics as above -03/11/2022 CT scan chest/abdomen/pelvis did not show any pulmonary embolism, diffuse lung disease likely a combination of pulmonary edema pneumonia, small right and moderate size left pleural effusion, small pericardial effusion. Mediastinal left supraclavicular and pratima portal lymphadenopathy likely reactive. Cholelithiasis, 4.8 cm mass in left ovary, most likely hemorrhagic cyst, pelvic ultrasound recommended, moderate splenomegaly (3) UTI (urinary tract infection): Code(s): N39.0 - Urinary tract infection, site not specified Status: Acute Assessment and Plan: UA was reflective of a UTI, antibiotics as above, cultures obtained and pending (4) Drug abuse: Code(s): F19.10 - Other psychoactive substance abuse, uncomplicated Status: Acute Assessment and Plan: Urine drug screen was positive for opiates and amphetamines -patient does agree to methamphetamine use and IV fentanyl use. When asked if she shares needles she did say yes -will watch for withdrawal (5) Swelling of lower extremity: Code(s): M79.89 - Other specified soft tissue disorders Status: Acute Assessment and Plan: Bilateral lower extremity pitting edema with multiple skin lesions -patient denies any pets at home -she does state she picks on her skin on a for a and lower extremities -could be related to cellulitis, right heart failure -proBNP was 412 -03/11/2022 lower extremity venous Dopplers: No deep vein thrombosis (6) Thrombocytopenia: Code(s): D69.6 - Thrombocytopenia, unspecified Status: Acute Assessment and Plan: Thrombocytopenia secondary to splenomegaly as seen on CT of the abdomen and/or septic shock, bacteremia -continue to monitor -hold Lovenox (7) Electrolyte abnormality: Code(s): E87.8 - Other disorders of electrolyte and fluid balance, not elsewhere classified Status: Acute Assessment and Plan: Replace potassium Plan DVT prophylaxis: Hold Lovenox as patient thrombocytopenic Stress ulcer prophylaxis: Protonix Nutrition: NPO for now except ice chips and sips with medications Discussed with patient and her mother, I updated them with patient's condition and plan of care. I answered all questions Code Status: Full code Critical Care Time Spent: 43 minutes Due to a high probability of clinically significant, life threatening deterioration, the patient required my highest level of preparedness to intervene isaiah
[2022-03-12 09:43] LABS: Band Neutrophils Percent 30 % (0-6); Hypochromasia 2+ (NORMAL); Monocytes Absolute Manual 0.15 K/mm3 (0.1-0.90); Monocytes Percent Manual 2 % (3-9); Neutrophils Absolute Manual 7.23 K/mm3 (1.7-7.2); Neutrophils Percent Manual 64 % (46-73); Platelet Estimate Decreased (Adequate); Total Cells Counted 100
[2022-03-12 09:44] LABS: Schistocytes None Seen (NORMAL)
[2022-03-12] MEDS: KCL 40 MEQ/WATER 100 ML 100 ML 25 ML IVPB (09:52)
[2022-03-12] MEDS: POTASSIUM CHLORIDE 20 MEQ TABLET 40 MEQ PO (10:04)
--- NOTE | 2022-03-12 12:04 | P.CDI_ITS ---
CDI Query Clarified Diagnosis Clarified Diagnosis: Patients chart notes R. Heat Failure. BNP on lab work elevated and patient with noted bilateral lower extremity edema. Please specify type and acuity of heart failure if known. * Acute * Chronic * Acute on Chronic * Unknown * Systolic * Diastolic * Combined Systolic and Diastolic * Unknown
--- NOTE | 2022-03-12 12:04 | WPDCDIQUERY2 ---
CDI Query Clarified Diagnosis Clarified Diagnosis: Patients chart notes R. Heat Failure. BNP on lab work elevated and patient with noted bilateral lower extremity edema. Please specify type and acuity of heart failure if known. Acute Chronic Acute on Chronic Unknown Systolic Diastolic Combined Systolic and Diastolic Unknown
--- NOTE | 2022-03-12 14:05 | PM.CNCAR ---
History of Present Illness History of Present Illness Consult date/time: 03/12/22 14:05 Reason For Visit: sepsis,pneumonia Narrative: this is a very unfortunate 31-year-old woman who has a longstanding history of intravenous drug abuse with needle sharing behavior. She is in the hospital with sepsis bacteremic with Staph aureus and concern is regarding the possibility of bacterial endocarditis. Fortunately her echocardiogram that was done yesterday does not show any gross evidence of infectious vegetation. Kemar however is reasonable/indicated as infectious vegetation would affect the duration of the need for intravenous antibiotics. I will schedule this to be done with the assistance of Anesthesia on Tuesday. Thank you for this consultation. Carmelo Gomez MD [facility] Social History Social History Smoking packs per day: 1 Smoking cigarettes per day: 20.0 Years smoked: 15 Smoking pack-years: 15.00 Smoking status: Former smoker Alcohol intake: never Substance use: never Other substance usage details: toxicology screen positive for amphetamines--pt. denies drug use Lack of Transportation: No Lack of Food: Never True Current Housing: I Have Housing Concerned About Future Housing: No Difficulty Paying Gas/Electric Bills: No Difficulty Paying for Meds: No Currently Unemployed: No Education: Decline to Answer Difficulty w/ Childcare or Family Care: No Spiritual care concerns: No Meds Home Medications and Allergies Home Medications Medication Instructions Recorded Confirmed Type No Home Medications 03/11/22 03/11/22 History Allergies Allergy/AdvReac Type Severity Reaction Status Date / Time APPLE/PEARS Allergy Mild RASH Uncoded 12/10/08 11:12 Vital Signs Vital Signs - 24 hr 03/11/22 14:12 03/11/22 14:12 03/11/22 14:25 Temperature 37.9 C H Pulse Rate 113 H Respiratory Rate 35 H Blood Pressure Pulse Oximetry 98 Oxygen Delivery Nasal Cannula Oxygen Flow Rate 4 Fraction of Inspired Oxygen 03/11/22 14:10 03/11/22 14:15 03/11/22 14:20 Temperature Pulse Rate 116 H 117 H 117 H Respiratory Rate Blood Pressure 124/69 Pulse Oximetry Oxygen Delivery Oxygen Flow Rate Fraction of Inspired Oxygen 03/11/22 15:15 03/11/22 15:30 03/11/22 16:00 Temperature Pulse Rate 116 H 117 H 114 H Respiratory Rate Blood Pressure 129/74 105/55 L Pulse Oximetry Oxygen Delivery Oxygen Flow Rate Fraction of Inspired Oxygen 03/11/22 18:00 03/11/22 16:00 03/11/22 16:00 Temperature 38.3 C H Pulse Rate 112 H 112 H 118 H Respiratory Rate 35 H 24 H Blood Pressure 99/47 L Pulse Oximetry 95 98 Oxygen Delivery High Flow Therapy with Na Oxygen Flow Rate 50 Fraction of Inspired Oxygen 50 03/11/22 15:30 03/11/22 18:00 03/11/22 21:05 Temperature Pulse Rate 112 H 100 Respiratory Rate 23 H Blood Pressure 107/76 106/61 Pulse Oximetry 95 97 Oxygen Delivery High Flow Therapy with Na Oxygen Flow Rate 50 Fraction of Inspired Oxygen 50 03/11/22 21:32 03/11/22 21:42 03/11/22 21:43 Temperature Pulse Rate 92 94 Respiratory Rate 25 H 21 H Blood Pressure Pulse Oximetry 94 Oxygen Delivery High Flow Therapy with Na Oxygen Flow Rate 50 Fraction of Inspired Oxygen 50 03/11/22 20:00 03/11/22 20:00 03/11/22 20:00 Temperature 37.2 C Pulse Rate 105 H 92 105 H Respiratory Rate 25 H 31 H Blood Pressure 94/49 L Pulse Oximetry 97 100 Oxygen Delivery High Flow Therapy with Na Oxygen Flow Rate 50 Fraction of Inspired Oxygen 50 03/11/22 22:00 03/11/22 22:00 03/12/22 00:00 Temperature Pulse Rate 96 96 92 Respiratory Rate 23 H 25 H Blood Pressure 99/59 L Pulse Oximetry 99 97 Oxygen Delivery High Flow Therapy with Na Oxygen Flow Rate 50 Fraction of Inspired Oxygen 50 03/12/22 00:34 1
[2022-03-12] MEDS: SODIUM CHLORIDE 0.9% IV 1,000 ML 100 ML (18:53)
[2022-03-12 22:13] LABS: Vancomycin Trough < 5.0 ug/mL (10.0-20.0)
[2022-03-13] VITALS (30 sets, daily range): BP systolic 97–117; BP diastolic 49–64; PULSE 83–125; RESP 16–32; TEMP 36.7–38.8; O2SAT 87–100
[2022-03-13] MEDS: IPRATROPIUM BR 0.02% INH SOLN 0.5 MG/2.5 ML VIAL INHALATION ×4 (02:53→21:12)
[2022-03-13] MEDS: LEVALBUTEROL NEB 1.25 MG/3 ML 0.63 MG INHALATION ×4 (02:53→21:11)
[2022-03-13] MEDS: SODIUM CHLORIDE 0.9% IV 1,000 ML 100 ML IV CONT (06:21)
[2022-03-13 06:43] LABS: Basophils Absolute Auto 0.1 K/mm3 (0.0-0.1); Basophils Percent Auto 0.7 % (0.2-1.2); Eosinophils Percent Auto 0.1 % (0-4.4); Hematocrit 29.9 % (37.0-47.0); Hemoglobin 9.8 g/dL (12.0-15.0); Immature Granulocyte Absolute 0.35 K/mm3 (0.00-0.031); Immature Granulocyte Percent A 4.1 % (0-0.5); Lymphocytes Absolute Auto 1.72 K/mm3 (0.9-3.2); Mean Corpuscular HGB Conc 32.8 g/dl (32-36); Mean Corpuscular Hemoglobin 27.2 pg (26-34); Mean Corpuscular Volume 83.1 fl (80-100); Mean Platelet Volume 11.8 fl (7.4-10.4); Monocytes Absolute Auto 0.5 K/mm3 (0.1-0.6); Monocytes Percent Auto 5.9 % (2.6-8.5); Neutrophils Absolute Auto 5.9 K/mm3 (1.3-6.7); Neutrophils Percent Auto 69.2 % (45.5-73.1); Platelet Count Result 91 k/mm3 (150-375); Red Cell Distribution Width 17.2 % (11.5-14.5); White Blood Count 8.6 K/mm3 (4.5-10.0)
[2022-03-13 07:07] LABS: Alanine Aminotransferase 17 U/L (6-35); Alkaline Phosphatase 112 U/L (38-126); Anion Gap 9 mmol/L (8-16); Aspartate Amino Transferase 16 U/L (14-36); Bilirubin,Total 0.5 mg/dL (0.2-1.3); Blood Urea Nitrogen 7 mg/dL (7-17); Calcium 6.8 mg/dL (8.4-10.2); Carbon Dioxide 28 mmol/L (22-30); Chloride 98 mmol/L (98-107); Estimated CRCL calculation 148 ml/min; Estimated Glomerular Filt Rate > 60; Glucose 97 mg/dL (65-110); Magnesium 1.9 mg/dL (1.6-2.3); Phosphorus 2.2 mg/dL (2.5-4.5); Potassium 2.9 mmol/L (3.4-5.0); Sodium 135 mmol/L (137-145)
[2022-03-13 07:35] LABS: Hypochromasia 1+ (NORMAL); Platelet Estimate Adequate (Adequate)
[2022-03-13 07:36] LABS: Poikilocytosis 1+ (NORMAL)
[2022-03-13 07:37] LABS: Acanthocytes 1+ (NORMAL); Ovalocytes 1+ (NORMAL); Schistocytes None Seen (NORMAL); Tear Drop Cells 1+ (NORMAL)
[2022-03-13] MEDS: PANTOPRAZOLE SODIUM IV 40 MG VIAL IV PUSH (08:20)
--- NOTE | 2022-03-13 09:22 | WPDINTPN ---
Progress Note: A&P Assessment and Plan (1) Septic shock: Code(s): A41.9 - Sepsis, unspecified organism; R65.21 - Severe sepsis with septic shock Status: Acute Assessment and Plan: Patient presented with fevers, chills, not feeling well, tachypnea, cough, shortness of breath -likely source pneumonia, UTI, possible endocarditis -was found to be hypotensive in the ER, was given 2.5 L IV fluid bolus on 03/11, on admission, additional IV fluid bolus was given in the ICU after she was fluid responsive by NICOM -central line was placed in the right femoral vein on 03/11 -wean Levophed to maintain MAP > 65 mm Hg for adequate end organ perfusion -lactic acid has normalized, lipase within normal limits, CRP 27.2, increased procalcitonin -will trend lactic acid -03/11 blood cultures growing Staph aureus 2/ bottles, (oxacillin sensitive Staph aureus) -03/11 urine cultures no growth -currently on vancomycin and Zosyn (03/11) -will discontinue vanc and Zosyn -03/11/2022 echocardiogram: LV chamber dimension is mildly enlarged, LV systolic function is normal EF 60-65%, LV diastolic function is normal (2) Pneumonia: Code(s): J18.9 - Pneumonia, unspecified organism Status: Acute Assessment and Plan: Patient presented with cough, fevers, chills. Cough is productive of yellow-colored sputum. -chest x-ray this morning: Worsened diffuse lung disease consistent with pneumonia, worsened moderate size left pleural effusion -continue bronchodilators -continue antibiotics as above -03/11/2022 CT scan chest/abdomen/pelvis did not show any pulmonary embolism, diffuse lung disease likely a combination of pulmonary edema pneumonia, small right and moderate size left pleural effusion, small pericardial effusion. Mediastinal left supraclavicular and pratima portal lymphadenopathy likely reactive. Cholelithiasis, 4.8 cm mass in left ovary, most likely hemorrhagic cyst, pelvic ultrasound recommended, moderate splenomegaly (3) UTI (urinary tract infection): Code(s): N39.0 - Urinary tract infection, site not specified Status: Acute Assessment and Plan: UA was reflective of a UTI, antibiotics as above, cultures negative (4) Drug abuse: Code(s): F19.10 - Other psychoactive substance abuse, uncomplicated Status: Acute Assessment and Plan: Urine drug screen was positive for opiates and amphetamines -patient does agree to methamphetamine use and IV fentanyl use. When asked if she shares needles she did say yes -will watch for withdrawal (5) Swelling of lower extremity: Code(s): M79.89 - Other specified soft tissue disorders Status: Acute Assessment and Plan: Bilateral lower extremity pitting edema with multiple skin lesions -patient denies any pets at home -she does state she picks on her skin on a for a and lower extremities -could be related to cellulitis, right heart failure -proBNP was 412 -03/11/2022 lower extremity venous Dopplers: No deep vein thrombosis (6) Thrombocytopenia: Code(s): D69.6 - Thrombocytopenia, unspecified Status: Acute Assessment and Plan: Thrombocytopenia secondary to splenomegaly as seen on CT of the abdomen and/or septic shock, bacteremia -continue to monitor -platelets count improving, platelets 91 k this morning (03/13) will restart Lovenox (7) Electrolyte abnormality: Code(s): E87.8 - Other disorders of electrolyte and fluid balance, not elsewhere classified Status: Acute Assessment and Plan: Replace potassium and phosphorus Plan DVT prophylaxis: Restart Lovenox Stress ulcer prophylaxis: Protonix Nutrition: Advance diet as tolerated Discussed with patient and her mother, I updated them with patient's condition and plan of care. I answered all questions Code Status: Full code Critical Care Time Spent: 34 minutes Due to a high probability of clinically significant, life threatening deterioration,
[2022-03-13] MEDS: ALBUMIN HUMAN 25% 25 GM/100 ML 100 ML IVPB ×4 (09:35→23:52)
[2022-03-13] MEDS: KCL 40 MEQ/WATER 100 ML 100 ML 25 ML IVPB (09:37)
[2022-03-13] MEDS: POTASSIUM PHOS/SODIUM PHOS 250 MG TABLET PO (09:39)
--- NOTE | 2022-03-13 09:42 | PM.PNCARD ---
Progress Note: A&P Assessment and Plan (1) Sepsis: Code(s): A41.9 - Sepsis, unspecified organism Status: Acute (2) Drug abuse: Code(s): F19.10 - Other psychoactive substance abuse, uncomplicated Status: Acute Plan Plan for DEMI Tuesday Subjective Date/time seen: 03/13/22 09:42 Interval history: 31-year-old woman who has a longstanding history of intravenous drug abuse with needle sharing behavior.? She is in the hospital with sepsis bacteremic with Staph aureus and concern is regarding the possibility of bacterial endocarditis. Date of service 03/13/2022: She denies any chest pain or shortness breath Review of Systems Review of Systems: All systems reviewed & are unremarkable except as noted in HPI and below Constitutional: Constitutional: Denies body ache(s) Eyes: Eyes: Denies blurry vision ENT: Reports Normal hearing present Cardiovascular: Cardiovascular: Denies chest pain Respiratory: Respiratory: Denies dyspnea on exertion Gastrointestinal: Gastrointestinal: Denies abdominal pain Genitourinary: Genitourinary: Denies hematuria Musculoskeletal: Musculoskeletal: Denies back pain Integumentary/Breasts: Skin/Breast: Denies wounds Neurologic: Denies Abnormal speech present Psychiatric: Psychiatric: Denies anxiety Endocrine: Endocrine: Denies change in body appearance Hematologic/Lymphatic: Hematologic/Lymphatic: Denies easy bleeding Allergic/Immunologic: Allergic/Immunologic: Denies GI upset with certain foods Exam Narrative: Awake alert. Appears older than stated age Const: General: comfortable and no acute distress HENMT: Face/Nose/Sinus: Normal nares present Eyes: Sclera: sclerae normal Neck: Neck: supple Carotids: no bruits Resp: Effort & Inspection: normal respiratory effort Auscultation: clear to auscultation bilaterally Cardio: Rate: regular rate GI: GI Palp: Yes Soft to palpation Skin: General skin exam: normal color Neuro: Speech: normal speech Extrem: General: normal to inspection Psych: Affect: normal affect Objective Data Vital Signs Vital Signs: Vital Signs - 24 hr 03/12/22 10:00 03/12/22 10:00 03/12/22 12:00 Temperature 36.8 C Pulse Rate 84 88 89 Respiratory Rate 30 H Blood Pressure 111/73 Pulse Oximetry 97 Oxygen Delivery Oxygen Flow Rate Fraction of Inspired Oxygen 03/12/22 12:00 03/12/22 12:00 03/12/22 12:00 Temperature 37.1 C 37.2 C Pulse Rate 89 91 86 Respiratory Rate 30 H 34 H 28 H Blood Pressure 103/63 109/67 Pulse Oximetry 97 96 99 Oxygen Delivery High Flow Therapy with Na Oxygen Flow Rate 50 Fraction of Inspired Oxygen 50 03/12/22 13:41 03/12/22 14:00 03/12/22 15:26 Temperature 37.2 C 37.3 C 36.8 C Pulse Rate 91 Respiratory Rate 26 H Blood Pressure 108/62 Pulse Oximetry 95 Oxygen Delivery Oxygen Flow Rate Fraction of Inspired Oxygen 03/12/22 15:30 03/12/22 14:00 03/12/22 18:00 Temperature Pulse Rate 86 94 96 Respiratory Rate Blood Pressure 105/62 Pulse Oximetry Oxygen Delivery Oxygen Flow Rate Fraction of Inspired Oxygen 03/12/22 16:00 03/12/22 16:00 03/12/22 20:00 Temperature Pulse Rate 83 96 90 Respiratory Rate 26 H 22 H Blood Pressure Pulse Oximetry 95 94 Oxygen Delivery High Flow Therapy with Na High Flow Therapy with Na Oxygen Flow Rate 50 35 Fraction of Inspired Oxygen 35 35 03/12/22 20:00 03/12/22 20:00 03/12/22 20:59 Temperature 37.3 C Pulse Rate 99 91 94 Respiratory Rate 26 H 17 Blood Pressure 105/58 L Pulse Oximetry 94 Oxygen Delivery Oxygen Flow Rate Fraction of Inspired Oxygen 03/12/22 22:00 03/12/22 23:48 03/13/22 00:00 Temperature Pulse Rate 92 70 102 H Respiratory Rate 27 H 26 H 29 H Blood Pressure 112/68 Pulse Oximetry 95 96 94 Oxygen Delivery High Flow Therapy with Na High Flow Therapy with Na Oxygen Flow Rate 30 35 Fraction of Inspired Ox
[2022-03-13] MEDS: ENOXAPARIN 40 MG/0.4 ML SYRINGE SUB-Q (12:33)
--- NOTE | 2022-03-13 15:54 | PC.NURSE ---
@ 1500 received pt from ICU to room 231 via bed accompanied by RN's. pt oriented to room and routines of floor; monitor SR 90's. O2 on high flow 6 l/nc-spo2 97%
--- NOTE | 2022-03-13 17:01 | PC.NURSE ---
This patient, Val Don, was transferred to [[id number] ] on 03/13/22 at 1455 Personal belongings sent with patient. Report given to [Estrella LO ]. Appropriate documentation sent with patient.
--- NOTE | 2022-03-13 20:45 | PM.GYNPNOP ---
PULMONOLOGIST/INTENSIVIST - A/P Assessment and plan (1) Ovarian cyst: Code(s): N83.209 - Unspecified ovarian cyst, unspecified side Status: Acute Plan No gynecologic symptoms at this time, reviewed ultrasound, complex ovarian cyst that needs follow-up ultrasound in 6-8 weeks. Please make provisions for follow-[facility] at [facility] upon discharge. Postoperative Procedures: Procedures Operation Date: 03/15/22 08:30 <No data on this case meets the specified criteria> Time Spent With Patient Time: Total time spent is greater than 50% in coordination of care (as documented) at patient's floor/unit and/or counseling patient: Time with patient: less than 15 minutes PULMONOLOGIST/INTENSIVIST- PN:Subj Post-Op Subjective Date/time seen: 03/13/22 20:45 No gynecologic symptoms at this time, reviewed ultrasound, complex ovarian cyst that needs follow-up ultrasound in 6-8 weeks. Interval history: 31-year-old woman who has a longstanding history of intravenous drug abuse with needle sharing behavior.? She is in the hospital with sepsis bacteremic with Staph aureus and concern is regarding the possibility of bacterial endocarditis. Date of service 03/13/2022: She denies any chest pain or shortness breath PULMONOLOGIST/INTENSIVIST - PN: Obj Data Vital Signs Vital Signs: Vital Signs - 24 hr 03/12/22 20:59 03/12/22 22:00 03/12/22 23:48 Temperature Pulse Rate 94 92 70 Respiratory Rate 17 27 H 26 H Blood Pressure 112/68 Pulse Oximetry 95 96 Oxygen Delivery High Flow Therapy with Na Oxygen Flow Rate 30 Fraction of Inspired Oxygen 36 03/13/22 00:00 03/13/22 00:00 03/13/22 00:00 Temperature 100.9 F H Pulse Rate 102 H 102 H 102 H Respiratory Rate 29 H 29 H Blood Pressure 116/64 Pulse Oximetry 94 94 Oxygen Delivery High Flow Therapy with Na Oxygen Flow Rate 35 Fraction of Inspired Oxygen 35 03/13/22 01:27 03/13/22 02:00 03/13/22 03:27 Temperature 101.9 F H 101.8 F H Pulse Rate 110 H 99 Respiratory Rate 30 H 18 Blood Pressure 111/55 L Pulse Oximetry 91 Oxygen Delivery Oxygen Flow Rate Fraction of Inspired Oxygen 03/13/22 04:00 03/13/22 04:00 03/13/22 01:57 Temperature 99.6 F 99.7 F H Pulse Rate 93 95 Respiratory Rate 22 H 28 H Blood Pressure 113/61 Pulse Oximetry 93 91 Oxygen Delivery High Flow Therapy with Na Oxygen Flow Rate 35 Fraction of Inspired Oxygen 35 03/13/22 04:00 03/13/22 05:27 03/13/22 08:11 Temperature 99.6 F Pulse Rate 95 94 Respiratory Rate 32 H Blood Pressure 110/58 L Pulse Oximetry 93 92 Oxygen Delivery High Flow Therapy with Na Oxygen Flow Rate 30 Fraction of Inspired Oxygen 36 03/13/22 08:12 03/13/22 08:22 03/13/22 08:00 Temperature 99.7 F H Pulse Rate 87 95 99 Respiratory Rate 28 H 27 H 16 Blood Pressure 117/60 Pulse Oximetry 95 Oxygen Delivery Oxygen Flow Rate Fraction of Inspired Oxygen 03/13/22 09:38 03/13/22 10:00 03/13/22 08:00 Temperature 98.9 F Pulse Rate 92 Respiratory Rate 16 Blood Pressure 103/49 L Pulse Oximetry 95 95 100 Oxygen Delivery High Flow Nasal Cannula High Flow Nasal Cannula Oxygen Flow Rate 10 10 Fraction of Inspired Oxygen 03/13/22 09:00 03/13/22 10:00 03/13/22 08:00 Temperature Pulse Rate 89 Respiratory Rate Blood Pressure Pulse Oximetry 99 97 Oxygen Delivery High Flow Nasal Cannula High Flow Nasal Cannula Oxygen Flow Rate 8 6 Fraction of Inspired Oxygen 03/13/22 10:00 03/13/22 12:00 03/13/22 12:00 Temperature Pulse Rate 92 85 Respiratory Rate Blood Pressure Pulse Oximetry 96 Oxygen Delivery High Flow Nasal Cannula Oxygen Flow Rate 6 Fraction of Inspired Oxygen 03/13/22 12:00 03/13/22 13:51 03/13/22 13:58 Temperature 98.2 F Pulse Rate 83 91 95 Respiratory Rate 19 25 H 23 H Blood Pressure 97/58 L Pulse Oximetry 96 Oxygen Delivery Oxygen Flow Rate Fraction of Inspired Oxygen 03/13/22 14:00 1
[2022-03-13] MEDS: SODIUM CHLORIDE 0.9% IV 1,000 ML 75 ML IV CONT (22:15)
[2022-03-14] VITALS (48 sets, daily range): BP systolic 92–146; BP diastolic 54–99; PULSE 92–132; RESP 18–56; TEMP 36.9–38.3; O2SAT 88–99
[2022-03-14] MEDS: IPRATROPIUM BR 0.02% INH SOLN 0.5 MG/2.5 ML VIAL INHALATION ×4 (03:01→20:22)
[2022-03-14] MEDS: LEVALBUTEROL NEB 1.25 MG/3 ML 0.63 MG INHALATION ×4 (03:01→20:22)
--- NOTE | 2022-03-14 04:40 | PC.NURSE ---
03/14/22 0035-Vape devices x2 found in Pt's bed. Vape devices x2 removed and placed in IMU room 231 locked closet.
[2022-03-14] MEDS: CENTRAL LINE FLUSH 10 ML IV PUSH ×4 (05:06→21:08)
[2022-03-14] MEDS: CENTRAL LINE FLUSH 20 ML IV PUSH (05:06)
[2022-03-14 05:23] LABS: Basophils Absolute Auto 0.1 K/mm3 (0.0-0.1); Basophils Percent Auto 0.5 % (0.2-1.2); Eosinophils Percent Auto 0.1 % (0-4.4); Hematocrit 27.6 % (37.0-47.0); Immature Granulocyte Absolute 0.31 K/mm3 (0.00-0.031); Immature Granulocyte Percent A 3.3 % (0-0.5); Lymphocytes Absolute Auto 1.63 K/mm3 (0.9-3.2); Lymphocytes Percent Auto 17.5 % (18.3-44.2); Mean Corpuscular HGB Conc 32.6 g/dl (32-36); Mean Corpuscular Hemoglobin 26.4 pg (26-34); Mean Corpuscular Volume 80.9 fl (80-100); Mean Platelet Volume 11.4 fl (7.4-10.4); Monocytes Absolute Auto 0.6 K/mm3 (0.1-0.6); Neutrophils Absolute Auto 6.7 K/mm3 (1.3-6.7); Neutrophils Percent Auto 72.6 % (45.5-73.1); Platelet Count Result 143 k/mm3 (150-375); Red Blood Count 3.41 M/mm3 (4.2-5.4); Red Cell Distribution Width 17.8 % (11.5-14.5); White Blood Count 9.3 K/mm3 (4.5-10.0)
[2022-03-14 05:36] LABS: Alanine Aminotransferase 12 U/L (6-35); Albumin Level 2.6 g/dL (3.5-5.1); Alkaline Phosphatase 110 U/L (38-126); Anion Gap 5 mmol/L (8-16); Aspartate Amino Transferase 17 U/L (14-36); Bilirubin,Total 0.9 mg/dL (0.2-1.3); Blood Urea Nitrogen 5 mg/dL (7-17); Calcium 7.2 mg/dL (8.4-10.2); Carbon Dioxide 31 mmol/L (22-30); Chloride 99 mmol/L (98-107); Estimated CRCL calculation 177 ml/min; Estimated Glomerular Filt Rate > 60; Glucose 108 mg/dL (65-110); Magnesium 1.8 mg/dL (1.6-2.3); Phosphorus 2.7 mg/dL (2.5-4.5); Potassium 3.2 mmol/L (3.4-5.0); Sodium 135 mmol/L (137-145)
[2022-03-14] MEDS: ENOXAPARIN 40 MG/0.4 ML SYRINGE SUB-Q (08:11)
[2022-03-14] MEDS: PANTOPRAZOLE SODIUM IV 40 MG VIAL IV PUSH (08:12)
[2022-03-14] MEDS: ONDANSETRON INJ 4 MG/2 ML VIAL IV PUSH (08:16)
--- NOTE | 2022-03-14 09:32 | ECG_ITS ---
Measurements Intervals [place] Rate: 97 P: 51 IN: 137 QRS: 33 QRSD: 98 T: 36 QT: 342 QTc: 435 Interpretive Statements SINUS RHYTHM BASELINE ARTIFACT- I, II, III, AVL, V1-V6 BORDERLINE ECG COMPARED TO ECG 03/11/2022 03:42:44 SINUS RHYTHM NOW PRESENT Electronically Signed On 03-14-2022 10:57:46 [employer] by Jason Romero D.O.
--- NOTE | 2022-03-14 09:35 | PM.PNCARD ---
Progress Note: A&P Assessment and Plan (1) Sepsis: Code(s): A41.9 - Sepsis, unspecified organism Status: Acute Assessment and Plan: Kemar planned for tomorrow. NPO after midnight. (2) Drug abuse: Code(s): F19.10 - Other psychoactive substance abuse, uncomplicated Status: Acute (3) Chest pain: Code(s): R07.9 - Chest pain, unspecified Status: Acute Assessment and Plan: Will order a stat EKG. Will also order troponins. Portable chest x-ray will be ordered also. She may need transfer back to the ICU. Also further imaging such as CT scan chest may be needed but will defer to the hospitalist. Further workup depending on the above test results (4) Hypokalemia: Code(s): E87.6 - Hypokalemia Status: Acute Assessment and Plan: KCL 40 mg p.o. x1 Subjective Date/time seen: 03/14/22 09:35 Interval history: 31-year-old woman who has a longstanding history of intravenous drug abuse with needle sharing behavior.? She is in the hospital with sepsis bacteremic with Staph aureus and concern is regarding the possibility of bacterial endocarditis. Date of service 03/13/2022: She denies any chest pain or shortness breath Date of service 03/14/2022: She is currently tachypneic. She also is complaining of some chest pain and is diaphoretic. Review of Systems Review of Systems: All systems reviewed & are unremarkable except as noted in HPI and below Constitutional: Constitutional: Denies body ache(s) Eyes: Eyes: Denies blurry vision ENT: Reports Normal hearing present Cardiovascular: Cardiovascular: Reports chest pain and Denies dyspnea on exertion Respiratory: Respiratory: Reports dyspnea Gastrointestinal: Gastrointestinal: Denies abdominal pain Genitourinary: Genitourinary: Denies hematuria Musculoskeletal: Musculoskeletal: Denies back pain Integumentary/Breasts: Skin/Breast: Denies wounds Neurologic: Reports Normal hearing present and Denies Abnormal speech present Psychiatric: Psychiatric: Denies anxiety Endocrine: Endocrine: Denies change in body appearance Hematologic/Lymphatic: Hematologic/Lymphatic: Denies easy bleeding Allergic/Immunologic: Allergic/Immunologic: Denies GI upset with certain foods Exam Narrative: Awake alert. Appears older than stated age Const: General: comfortable and no acute distress HENMT: Face/Nose/Sinus: Normal nares present Eyes: Sclera: sclerae normal Neck: Neck: supple Carotids: no bruits Resp: Effort & Inspection: normal respiratory effort Auscultation: clear to auscultation bilaterally Cardio: Rate: regular rate Skin: General skin exam: normal color Neuro: Cranial nerves: Yes Normal hearing present Speech: normal speech and No Abnormal speech present Extrem: General: normal to inspection Psych: Affect: normal affect Objective Data Vital Signs Vital Signs: Vital Signs - 24 hr 03/13/22 09:38 03/13/22 10:00 03/13/22 10:00 Temperature 37.2 C Pulse Rate 92 Respiratory Rate 16 Blood Pressure 103/49 L Pulse Oximetry 95 95 97 Oxygen Delivery High Flow Nasal Cannula High Flow Nasal Cannula Oxygen Flow Rate 10 6 Fraction of Inspired Oxygen 03/13/22 10:00 03/13/22 12:00 03/13/22 12:00 Temperature Pulse Rate 92 85 Respiratory Rate Blood Pressure Pulse Oximetry 96 Oxygen Delivery High Flow Nasal Cannula Oxygen Flow Rate 6 Fraction of Inspired Oxygen 03/13/22 12:00 03/13/22 13:51 03/13/22 13:58 Temperature 36.8 C Pulse Rate 83 91 95 Respiratory Rate 19 25 H 23 H Blood Pressure 97/58 L Pulse Oximetry 96 Oxygen Delivery Oxygen Flow Rate Fraction of Inspired Oxygen 03/13/22 14:00 03/13/22 16:00 03/13/22 16:00 Temperature 36.7 C Pulse Rate 95 94 92 Respiratory Rate 30 H Blood Pressure 117/60 Pulse Oximetry 95 Oxygen Delivery Oxygen Flow Rate Fraction of Inspired Oxygen 03/13/22 16:00
[2022-03-14 10:07] LABS: Alveolar/Arterial O2 Gradient 572.5 mmHg; Base Excess ABG 2.9 mEq/l (+/-2.0); Fractional Inspired Oxygen 95 %; HCO3 ABG 27.4 mEq/l (22.0-26.0); Oxygen Content ABG 13.8 %vol (16.0-22.0); Oxygen Saturation ABG 92.7 % (95.0-100.0); PCO2 ABG 41.6 mmHg (35.0-45.0); PO2 ABG 62.7 mmHg (80.0-100.0); PO2 FiO2 Ratio Arterial Blood 0.66 %; Total Hemoglobin 10.6 g/dL (12.0-18.0); pH ABG 7.436 (7.350-7.450)
[2022-03-14 10:08] LABS: Device HIGH FLOW NASAL CANN; Modified Allen's Test Pass; Site Drawn LEFT RADIAL
[2022-03-14] MEDS: FUROSEMIDE INJ 40 MG/4 ML VIAL IV PUSH (10:11)
[2022-03-14] MEDS: NALOXONE HCL 0.4 MG/ML VIAL 0.2 MG IV PUSH (10:25)
[2022-03-14] MEDS: NALOXONE HCL 0.4 MG/ML VIAL (10:25)
--- NOTE | 2022-03-14 10:35 | PC.NURSE ---
This patient, Val Don, was received from [[id number]] on 03/14/22 at 1035. Patient/family oriented to unit policies and routines
--- NOTE | 2022-03-14 10:36 | WPDINTPN ---
Progress Note: A&P Assessment and Plan (1) Acute respiratory failure: Code(s): J96.00 - Acute respiratory failure, unspecified whether with hypoxia or hypercapnia Status: Acute Assessment and Plan: 03/14: Patient was less responsive, tachypneic, short of breath, requiring more oxygen. She was breathing about 45-50 times a minute. Patient was brought to the ICU, intubated and placed on mechanical ventilation. Intubation was uneventful. -sedated with propofol infusion and will add Versed infusion 03/14: Chest x-ray shows diffuse bilateral patchy airspace opacities with continued gradual increase in right upper lung zone which could represent worsening pulmonary edema and pneumonia, small bilateral pleural effusions, left greater than right 8 associated by basilar atelectasis. -patient was diuresed intubation, with good urine output -currently on CMV mode of ventilation -will place patient on bronchodilators -patient possibly aspirated during intubation, will add cefepime and Flagyl (2) Septic shock: Code(s): A41.9 - Sepsis, unspecified organism; R65.21 - Severe sepsis with septic shock Status: Acute Assessment and Plan: 03/11: Patient presented with fevers, chills, not feeling well, tachypnea, cough, shortness of breath -likely source pneumonia, UTI, endocarditis -was found to be hypotensive in the ER, was given 2.5 L IV fluid bolus on 03/11, on admission, additional IV fluid bolus was given in the ICU after she was fluid responsive by NICOM -central line was placed in the right femoral vein on 03/11 -patient is off Levophed -lactic acid has normalized, lipase within normal limits, CRP 27.2, increased procalcitonin -03/11 blood cultures growing Staph aureus 2/2 bottles, (oxacillin sensitive Staph aureus) -03/11 urine cultures no growth -03/13: patient was initially on vancomycin and Zosyn, both of them were discontinued and patient was started on Nafcillin 2 g IV q.4 hours. -03/11/2022 echocardiogram: LV chamber dimension is mildly enlarged, LV systolic function is normal EF 60-65%, LV diastolic function is normal -DEMI scheduled for 03/15/2022 per Cardiology (3) Pneumonia: Code(s): J18.9 - Pneumonia, unspecified organism Status: Acute Assessment and Plan: Patient presented with cough, fevers, chills. Cough is productive of yellow-colored sputum. -chest x-ray this morning: Worsened diffuse lung disease consistent with pneumonia, worsened moderate size left pleural effusion -continue bronchodilators -continue antibiotics as above -03/11/2022 CT scan chest/abdomen/pelvis did not show any pulmonary embolism, diffuse lung disease likely a combination of pulmonary edema pneumonia, small right and moderate size left pleural effusion, small pericardial effusion. Mediastinal left supraclavicular and pratima portal lymphadenopathy likely reactive. Cholelithiasis, 4.8 cm mass in left ovary, most likely hemorrhagic cyst, pelvic ultrasound recommended, moderate splenomegaly (4) UTI (urinary tract infection): Code(s): N39.0 - Urinary tract infection, site not specified Status: Acute Assessment and Plan: UA was reflective of a UTI, antibiotics as above, cultures negative (5) Drug abuse: Code(s): F19.10 - Other psychoactive substance abuse, uncomplicated Status: Acute Assessment and Plan: Urine drug screen was positive for opiates and amphetamines -patient does agree to methamphetamine use and IV fentanyl use. When asked if she shares needles she did say yes -will watch for withdrawal -03/14: Urine drug screen was negative (6) Swelling of lower extremity: Code(s): M79.89 - Other specified soft tissue disorders Status: Acute Assessment and Plan: Bilateral lower extremity pitting edema with multiple skin lesions -patient denies any pets at home -she does state she picks on her skin on a for a and lower extremities -could be related to cell
[2022-03-14 10:41] LABS: Troponin I 0.018 ng/mL (0.000-0.034)
[2022-03-14] MEDS: ETOMIDATE 20 MG/10 ML AMPUL IV PUSH (10:53)
[2022-03-14] MEDS: ROCURONIUM BROMIDE 50 MG/5 ML VIAL IV PUSH (10:54)
[2022-03-14 11:01] LABS: Barbiturate Screen Urine Negative (Negative); Benzodiazepines Screen Urine Negative (Negative)
[2022-03-14 11:02] LABS: Amphetamine Screen Urine Negative (Negative); Cannabinoid Screen Urine Negative (Negative); Cocaine Screen Urine Negative (Negative); Methadone Screen Urine Negative (Negative); Opiate Screen Urine Negative (Negative); Phencyclidine Screen Urine Negative (Negative)
[2022-03-14] MEDS: PROPOFOL IV EMULSION 100 ML 5.91 MG IV CONT (11:02)
[2022-03-14] MEDS: IPRATROPIUM BR 0.02% INH SOLN 0.5 MG/2.5 ML VIAL 1 MG INHALATION (11:16)
[2022-03-14] MEDS: ETOMIDATE 20 MG/10 ML AMPUL 5 MG IV PUSH (11:16)
[2022-03-14] MEDS: ALBUTEROL SULFATE NEB 2.5 MG/3 ML INH 15 MG INHALATION (11:17)
--- NOTE | 2022-03-14 11:17 | PM.IMPN ---
Progress Note: A&P Assessment and Plan (1) Septic shock: Code(s): A41.9 - Sepsis, unspecified organism; R65.21 - Severe sepsis with septic shock Status: Acute Assessment and Plan: Patient presented with fevers, chills, not feeling well, tachypnea, cough, shortness of breath -likely source pneumonia, possible endocarditis - appreciate roof cement and paint maker helper help. Will broaden antibiotic coverage to nafcillin and cefepime. - Will monitor in the ICU. (2) Pneumonia: Code(s): J18.9 - Pneumonia, unspecified organism Status: Acute Assessment and Plan: Chest x-ray noted no having worsening respiratory distress broaden antibiotics to nafcillin and cefepime (3) Drug abuse: Code(s): F19.10 - Other psychoactive substance abuse, uncomplicated Status: Acute Assessment and Plan: Urine drug screen was positive for opiates and amphetamines -patient does agree to methamphetamine use and IV fentanyl use. When asked if she shares needles she did say yes -will watch for withdrawal (4) Swelling of lower extremity: Code(s): M79.89 - Other specified soft tissue disorders Status: Acute Assessment and Plan: Bilateral lower extremity pitting edema with multiple skin lesions -03/11/2022 lower extremity venous Dopplers: No deep vein thrombosis (5) Thrombocytopenia: Code(s): D69.6 - Thrombocytopenia, unspecified Status: Acute Assessment and Plan: Thrombocytopenia secondary to splenomegaly as seen on CT of the abdomen and/or septic shock, bacteremia monitor (6) Electrolyte abnormality: Code(s): E87.8 - Other disorders of electrolyte and fluid balance, not elsewhere classified Status: Acute Assessment and Plan: monitor and replace (7) Bacteremia: Code(s): R78.81 - Bacteremia Status: Acute Assessment and Plan: continue IV nafcillin cultures grew MSSA possible endocarditis, appreciate Cardiology consult Subjective Date/time seen: 03/14/22 11:17 was called to the room for respiratory distress. Patient was tachypneic with respiratory rate in the 40s. She was put on Airvo. Chest x-ray did reveal some pulmonary congestion. ABG and other workup pending. spoke with roof cement and paint maker helper who is also going to evaluate the patient Exam Narrative: General: Young female who is ill appearing HEENT:? Pupils are equal and reactive, sclera is clear, white patches on the tongue and piercing noted Neck:? supple, Respiratory:?Bilateral rales/crackles, adequate air entry, tachypneic shallow breathing Cardiac:? Regular rate and rhythm, S1-S2 normal Abdomen:? Soft, diffuse tenderness, normoactive bowel sounds, nondistended Extremities:? erythema and swelling of the hands, bilateral lower extremity 4+ pitting edema from the knee downward Neuro:? Patient is awake, alert, oriented to place, follows simple commands and answers to questions Skin:? Multiple skin lesions on her forehead and lower extremities which seem to be drying up Psych:? Depressed affect, Objective Data Vital Signs Vital Signs: Vital Signs - 24 hr 03/13/22 12:00 03/13/22 12:00 03/13/22 12:00 Temperature 98.2 F Pulse Rate 85 83 Respiratory Rate 19 Blood Pressure 97/58 L Pulse Oximetry 96 96 Oxygen Delivery High Flow Nasal Cannula Oxygen Flow Rate 6 Fraction of Inspired Oxygen 03/13/22 13:51 03/13/22 13:58 03/13/22 14:00 Temperature Pulse Rate 91 95 95 Respiratory Rate 25 H 23 H Blood Pressure Pulse Oximetry Oxygen Delivery Oxygen Flow Rate Fraction of Inspired Oxygen 03/13/22 16:00 03/13/22 16:00 03/13/22 16:00 Temperature 98.1 F Pulse Rate 94 92 Respiratory Rate 30 H Blood Pressure 117/60 Pulse Oximetry 95 94 Oxygen Delivery High Flow Nasal Cannula Oxygen Flow Rate 6 Fraction of Inspired Oxygen 03/13/22 18:00 03/13/22 19:05 03/13/22 19:50 Temperature 99.2 F Pulse Rate 106 H 105 H
[2022-03-14] MEDS: KCL 40 MEQ/WATER 100 ML 100 ML 25 ML IVPB ×2 (11:18→17:40)
[2022-03-14] MEDS: MIDAZOLAM HCL (*CRX) 2 MG/2 ML VIAL IV PUSH (11:43)
[2022-03-14] MEDS: MIDAZOLAM 100MG/NS 100ML(*CRX) 100 MG/100 ML BAG IV CONT (11:44)
--- NOTE | 2022-03-14 12:11 | WPDPROCEDUR ---
Procedures Intubation Intubation Date: 03/14/22 Intubation Time: 10:49 Consent: Discussed with patient and explained to her that because her increase breathing rate of 40s to 50s, worsening chest x-ray she will require intubation and mechanical ventilation, consented to being intubated and placed on mechanical ventilation A pre-procedural Time-Out was completed immediately before starting the procedure and confirmed: Patient Identification, Site, Procedure, Patient Position and the Availability of Requisite Equipment: Yes Sedative: etomidate Paralytic: rocuronium Laryngoscope: fiber optic video scope Assist device used: fiber optic device ET tube size: 7.5 Tube secured depth (cm): 23 Tube secured location: lips Tube placement confirmation: visualized tube passing through cords, equal breath sounds bilaterally, no breath sounds over epigastrium and confirmation by capnometry Patient tolerated procedure: well Intubation complications: none
[2022-03-14] MEDS: MAGNESIUM SULF 2 GM/WATER 50ML 2 GM/50 ML BAG IVPB (13:01)
--- NOTE | 2022-03-14 13:04 | PM.GYNPNOP ---
BOTANY PROFESSOR - A/P Postoperative Procedures: Procedures Operation Date: 03/15/22 08:30 <No data on this case meets the specified criteria> Time Spent With Patient Time: Total time spent is greater than 50% in coordination of care (as documented) at patient's floor/unit and/or counseling patient: Time with patient: less than 15 minutes BOTANY PROFESSOR- PN:Subj Post-Op Subjective Date/time seen: 03/14/22 13:04 Seen, intubated, no known hoist worker symptoms. Will sign off and request that the patient have follow-up with us for follow-up on ovarian cyst. Needs repeat ultrasound 6-8 weeks. Interval history: Septic shock, pneumonia, STAPH AUREUS BACTEREMIA, UTI, thrombocytopenia bilateral lower extremity edema 03/13/2022: I was asked to see this patient in the IMU this morning, discussed with the hospitalist, he stated the patient has had decreased responsiveness, tachypneic, short of breath, worsening chest x-ray. Patient is on high-flow therapy, 95% FiO2 and 65 L flow rate. According to the nurses, they found some vape in the room overnight, known if family give the patient any illicit drugs. Urine output has been adequate, T-max of 100.9?. Patient is hemodynamically stable I went and evaluated the patient in the intermediate Unit, patient was tachypneic, somnolent with decreased responsiveness, patient was given Narcan with significant improvement in her mental status. She was already given IV Lasix by the clinical account specialist with good urine output. Patient was brought to the ICU, was breathing 40-50 times a minute, discussed with her regarding intubation to which she was agreeable. Patient was successfully intubated, and placed on CMV mode of ventilation, peep of 10 and 100% FiO2 for now. Patient was started on propofol infusion for sedation BOTANY PROFESSOR - PN: Obj Data Vital Signs Vital Signs: Vital Signs - 24 hr 03/13/22 13:51 03/13/22 13:58 03/13/22 14:00 Temperature Pulse Rate 91 95 95 Respiratory Rate 25 H 23 H Blood Pressure Pulse Oximetry Oxygen Delivery Oxygen Flow Rate Fraction of Inspired Oxygen 03/13/22 16:00 03/13/22 16:00 03/13/22 16:00 Temperature 98.1 F Pulse Rate 94 92 Respiratory Rate 30 H Blood Pressure 117/60 Pulse Oximetry 95 94 Oxygen Delivery High Flow Nasal Cannula Oxygen Flow Rate 6 Fraction of Inspired Oxygen 03/13/22 18:00 03/13/22 19:05 03/13/22 19:50 Temperature 99.2 F Pulse Rate 106 H 105 H 115 H Respiratory Rate 24 H Blood Pressure 112/51 L Pulse Oximetry 90 90 Oxygen Delivery High Flow Nasal Cannula Oxygen Flow Rate 7 Fraction of Inspired Oxygen 03/13/22 20:00 03/13/22 21:14 03/13/22 21:14 Temperature Pulse Rate 115 H 121 H 121 H Respiratory Rate 24 H 24 H 24 H Blood Pressure Pulse Oximetry 90 92 Oxygen Delivery High Flow Nasal Cannula High Flow Nasal Cannula Oxygen Flow Rate 7 7 Fraction of Inspired Oxygen 03/13/22 21:25 03/13/22 20:00 03/13/22 22:00 Temperature Pulse Rate 123 H 118 H 123 H Respiratory Rate 24 H Blood Pressure Pulse Oximetry Oxygen Delivery Oxygen Flow Rate Fraction of Inspired Oxygen 03/14/22 00:00 03/13/22 23:33 03/13/22 21:20 Temperature 98.4 F Pulse Rate 125 H 125 H Respiratory Rate 26 H 26 H Blood Pressure 123/54 L Pulse Oximetry 94 94 88 L Oxygen Delivery Non-Rebreather Mask High Flow Nasal Cannula Oxygen Flow Rate 15 8 Fraction of Inspired Oxygen 03/13/22 22:30 03/13/22 23:50 03/14/22 00:00 Temperature Pulse Rate 125 H Respiratory Rate Blood Pressure Pulse Oximetry 87 L 88 L Oxygen Delivery High Flow Nasal Cannula High Flow Nasal Cannula Oxygen Flow Rate 8 10 Fraction of Inspired Oxygen 03/14/22 02:00 03/14/22 03:01 03/14/22 03:16 Temperature Pulse Rate 125 H 132 H Respiratory Rate 28 H Blood Pressure Pulse Oximetry 94 Oxygen Delivery High Flow Therapy with Na Oxygen Flow Rate 50 Fraction of Inspired Oxygen
[2022-03-14] MEDS: metroNIDAZOLE 500 MG/ISO 100ML 500 MG/100 ML BAG 100 MG IVPB ×2 (13:10→21:08)
[2022-03-14 14:12] LABS: Alveolar/Arterial O2 Gradient 626.1 mmHg; Base Excess ABG 8.3 mEq/l (+/-2.0); Fractional Inspired Oxygen 100 %; HCO3 ABG 31.8 mEq/l (22.0-26.0); Oxygen Content ABG 12.1 %vol (16.0-22.0); PCO2 ABG 39.8 mmHg (35.0-45.0); PO2 FiO2 Ratio Arterial Blood 0.47 %; Total Hemoglobin 10.1 g/dL (12.0-18.0)
[2022-03-14 14:13] LABS: pH ABG 7.521 (7.350-7.450)
[2022-03-14 14:14] LABS: PO2 ABG 47.1 mmHg (80.0-100.0)
[2022-03-14 14:15] LABS: Arterial Blood Gas PEEP 10 cmH2O; Arterial Blood Gas Tidal Volume 450 ml; Arterial Blood Gas Vent Mode CMV; Arterial Blood Gas Ventilator rate 24 /MIN; Device VENTILATOR; Modified Allen's Test Pass; Oxygen Saturation ABG 87.2 % (95.0-100.0); Site Drawn RIGHT RADIAL
[2022-03-14] MEDS: PROPOFOL IV EMULSION 100 ML 29.55 MG IV CONT ×3 (14:15→21:12)
[2022-03-14 17:12] LABS: Anion Gap 5 mmol/L (8-16); Blood Urea Nitrogen 6 mg/dL (7-17); Calcium 7.1 mg/dL (8.4-10.2); Carbon Dioxide 33 mmol/L (22-30); Chloride 99 mmol/L (98-107); Estimated CRCL calculation 151 ml/min; Estimated Glomerular Filt Rate > 60; Glucose 96 mg/dL (65-110); Magnesium 2.4 mg/dL (1.6-2.3); Potassium 3.1 mmol/L (3.4-5.0); Sodium 137 mmol/L (137-145)
[2022-03-14] MEDS: POTASSIUM CHLORIDE 20 MEQ PACKET (FOR LIQUID) 40 MEQ FEED TUBE (17:28)
[2022-03-14] MEDS: MINERAL OIL/WHITE PETROLATUM OINTMENT 1 APPLIC EACH EYE (20:04)
[2022-03-14 20:30] LABS: Alveolar/Arterial O2 Gradient 555.8 mmHg; Base Excess ABG 5.9 mEq/l (+/-2.0); Fractional Inspired Oxygen 100 %; HCO3 ABG 28.8 mEq/l (22.0-26.0); Oxygen Content ABG 13.5 %vol (16.0-22.0); Oxygen Saturation ABG 98.8 % (95.0-100.0); Oxyhemoglobin 97.1 % THb (90.0-100.0); PCO2 ABG 34.9 mmHg (35.0-45.0); PO2 ABG 122.3 mmHg (80.0-100.0); PO2 FiO2 Ratio Arterial Blood 1.22 %; Total Hemoglobin 9.7 g/dL (12.0-18.0)
[2022-03-14 20:34] LABS: Arterial Blood Gas Vent Mode CMV; Arterial Blood Gas Ventilator rate 20 /MIN; Device VENTILATOR; Modified Allen's Test Pass; Site Drawn LEFT RADIAL; pH ABG 7.534 (7.350-7.450)
[2022-03-14 20:35] LABS: Arterial Blood Gas PEEP 12 cmH2O; Arterial Blood Gas Tidal Volume 450 ml
[2022-03-15] VITALS (52 sets, daily range): BP systolic 94–124; BP diastolic 53–86; PULSE 97–117; RESP 20–32; TEMP 37.4–38.2; O2SAT 96–100; BMI 28.4
[2022-03-15] MEDS: MIDAZOLAM 100MG/NS 100ML(*CRX) 100 MG/100 ML BAG 6 MG IV CONT (00:52)
[2022-03-15] MEDS: PROPOFOL IV EMULSION 100 ML 29.55 MG IV CONT ×7 (00:54→20:30)
[2022-03-15] MEDS: LEVALBUTEROL NEB 1.25 MG/3 ML 0.63 MG INHALATION ×4 (02:40→20:05)
[2022-03-15] MEDS: IPRATROPIUM BR 0.02% INH SOLN 0.5 MG/2.5 ML VIAL INHALATION ×4 (02:40→20:04)
[2022-03-15] MEDS: metroNIDAZOLE 500 MG/ISO 100ML 500 MG/100 ML BAG 100 MG IVPB ×3 (04:58→21:05)
[2022-03-15] MEDS: CENTRAL LINE FLUSH 10 ML IV PUSH ×4 (04:58→19:47)
[2022-03-15 05:33] LABS: Alveolar/Arterial O2 Gradient 286.3 mmHg; Carboxyhemoglobin 0.3 % THb (0-2.0); Fractional Inspired Oxygen 60 %; HCO3 ABG 33.8 mEq/l (22.0-26.0); Methemoglobin ABG 0.4 %THb (0-1.5); Oxygen Content ABG 15.8 %vol (16.0-22.0); Oxygen Saturation ABG 97.9 % (95.0-100.0); Oxyhemoglobin 96.4 % THb (90.0-100.0); PCO2 ABG 41.8 mmHg (35.0-45.0); PO2 ABG 95.5 mmHg (80.0-100.0); PO2 FiO2 Ratio Arterial Blood 1.59 %; Reduced Hemoglobin 2.9 %THb (0-5.0); Total Hemoglobin 11.6 g/dL (12.0-18.0)
[2022-03-15 05:39] LABS: Device VENTILATOR; Modified Allen's Test Pass; Site Drawn RIGHT RADIAL; pH ABG 7.525 (7.350-7.450)
[2022-03-15 05:40] LABS: Arterial Blood Gas PEEP 12 cmH2O; Arterial Blood Gas Tidal Volume 450 ml; Arterial Blood Gas Vent Mode CMV; Arterial Blood Gas Ventilator rate 18 /MIN
[2022-03-15 05:41] LABS: Basophils Percent Auto 0.4 % (0.2-1.2); Eosinophils Absolute Auto 0.1 K/mm3 (0-0.3); Eosinophils Percent Auto 0.5 % (0-4.4); Hematocrit 25.2 % (37.0-47.0); Hemoglobin 8.3 g/dL (12.0-15.0); Immature Granulocyte Absolute 0.45 K/mm3 (0.00-0.031); Immature Granulocyte Percent A 4.3 % (0-0.5); Lymphocytes Absolute Auto 1.53 K/mm3 (0.9-3.2); Lymphocytes Percent Auto 14.5 % (18.3-44.2); Mean Corpuscular HGB Conc 32.9 g/dl (32-36); Mean Corpuscular Hemoglobin 26.8 pg (26-34); Mean Corpuscular Volume 81.3 fl (80-100); Mean Platelet Volume 10.7 fl (7.4-10.4); Monocytes Absolute Auto 0.6 K/mm3 (0.1-0.6); Monocytes Percent Auto 5.4 % (2.6-8.5); Neutrophils Absolute Auto 7.9 K/mm3 (1.3-6.7); Neutrophils Percent Auto 74.9 % (45.5-73.1); Platelet Count Result 168 k/mm3 (150-375); Red Cell Distribution Width 18.4 % (11.5-14.5); White Blood Count 10.5 K/mm3 (4.5-10.0)
[2022-03-15 05:55] LABS: Lactic Acid Reflex 0.9 mmol/L (0.7-2.0)
[2022-03-15 05:57] LABS: Alanine Aminotransferase 10 U/L (6-35); Albumin Level 2.5 g/dL (3.5-5.1); Alkaline Phosphatase 100 U/L (38-126); Anion Gap 4 mmol/L (8-16); Aspartate Amino Transferase 15 U/L (14-36); Bilirubin,Total 0.8 mg/dL (0.2-1.3); Blood Urea Nitrogen 9 mg/dL (7-17); Calcium 7.2 mg/dL (8.4-10.2); Carbon Dioxide 31 mmol/L (22-30); Chloride 102 mmol/L (98-107); Estimated CRCL calculation 172 ml/min; Estimated Glomerular Filt Rate > 60; Glucose 94 mg/dL (65-110); Magnesium 2.1 mg/dL (1.6-2.3); Phosphorus 3.1 mg/dL (2.5-4.5); Potassium 3.6 mmol/L (3.4-5.0); Sodium 137 mmol/L (137-145)
[2022-03-15] MEDS: FENTANYL 2,500MCG/NS250ML(*CRX 2,500 MCG/250 ML BAG IV CONT (08:07)
[2022-03-15 08:17] LABS: NT Pro B Type Natriuretic Pept 336 pg/mL (5-100)
[2022-03-15] MEDS: MINERAL OIL/WHITE PETROLATUM OINTMENT 1 APPLIC EACH EYE ×2 (08:19→19:47)
[2022-03-15] MEDS: PANTOPRAZOLE SODIUM IV 40 MG VIAL IV PUSH (08:19)
--- NOTE | 2022-03-15 08:30 | ECHO_ITS ---
Patient Info Name: Val Don Age: 31 years : 1990 Gender: Female Ht: 70 in Wt: 217 lbs BSA: 2.23 m2 HR: 101 bpm Heart Rhythm: Sinus Rhythm Exam Date: 03/15/2022 8:55 AM Exam Location: [facility] Patient Status: Inpatient Admit Date: 03/11/2022 Staff Ordering Physician: Iris Junior [employer] Department Supervisor: Esdras Gupta, CHENCHO, RT Attending Provider: Lane Sims MD Referring Physician: Sandi PAYNE; Exam Type: CA echo transesophageal Study Info Indications - Possible endocarditis Complete two-dimensional, color flow and Doppler transesophageal study is performed. Summary 1. Transesophageal echocardiogram performed demonstrating no evidence of any infectious vegetation. 2. No Doppler evidence of regurgitant valvular lesions. 3. Hyperdynamic looking left ventricular systolic function. Left Ventricle Left ventricular chamber dimension is normal. Left ventricular systolic function is hyperdynamic with an ejection fraction by Biplane Method of Discs of Empty. Right Ventricle Right ventricular chamber dimension is normal. Left Atria Left atrial chamber dimension is normal. Right Atria Right atrial chamber dimension is normal. Aortic Valve The aortic valve is normal. Pulmonic Valve The pulmonic valve is normal. Mitral Valve The mitral valve has normal leaflets. Tricuspid Valve The tricuspid valve leaflets are normal. Pericardium/Pleural The pericardium appears normal. Inferior Vena Cava Not well visualized inferior vena cava with Empty collapse upon inspiration consistent with Empty right atrial pressure, Empty. Aorta The aortic root size at the sinus of Valsalva is normal. Report Signatures
--- NOTE | 2022-03-15 08:38 | SUR.OPER ---
Pt sedated prior to procedure start with propofol, versed and fentanyl. No medication dosage adjustments needed during procedure. Nhung LO, ICU at bedside for procedure. Pt tolerated well, family to be notified of end of procedure.
--- NOTE | 2022-03-15 08:46 | P.PCNCC_ITS ---
Cardiac Cath Procedure Note Date of procedure:: 03/15/22 Performing physician:: Carmelo Gomez MD Indication:: Staph aureus bacteremia Brief clinical history:: this is a 31-year-old patient with a history of intravenous drug abuse hospitalized with Staph aureus bacteremia. She was intubated over the weekend because of respiratory failure. This exam has been scheduled to exclude evidence of bacterial endocarditis Procedure Procedure performed:: transesophageal echocardiogram Sedation/Medication given:: patient already sedated in the ICU on the ventilator no additional sedation administered Estimated blood loss:: 0 Procedure note:: patient was in ICU room 2. Intubated sedated on mechanical ventilator support. The oropharynx was sprayed with benzocaine. The as esophageal ECHO probe was easily passed into the oropharynx and into the esophagus without difficulty. Imaging was carried out and multiple views inspecting all 4 cardiac valves carefully. At the conclusion of the study the probe was removed patient of course remains intubated sedated on mechanical ventilator support. Procedure was performed easily and without complication Findings:: left atrium is normal in size. The mitral valve leaflets are normal in appearance no evidence of mitral regurgitation by color Doppler. There were no signs of any vegetation on the mitral flow valve. The left ventricle is of normal dimension thickness and contracts in a hyperdynamic fashion. The aortic valve is a trileaflet structure which is thin and pliable. No for vegetation material seen on the aortic valve. There was no detectable aortic regurgitation. Aortic root is of normal size. The right-sided chambers are not enlarged and unremarkable in appearance with the tricuspid and pulmonic valves were inspected and were found to be free of evidence of vegetation. The Doppler did not show any regurgitant lesions of either the tricuspid or pulmonic valves. There was no sign of any pericardial fluid. Conclusion:: 1. Transesophageal echocardiogram demonstrating no valvular regurgitant lesions and no evidence of bacterial endocarditis 2. hyperdynamic appearing left ventricular systolic function Carmelo Gomez MD [facility]
--- NOTE | 2022-03-15 08:55 | WPDINTPN ---
Progress Note: A&P Assessment and Plan (1) Acute respiratory failure: Code(s): J96.00 - Acute respiratory failure, unspecified whether with hypoxia or hypercapnia Status: Acute Assessment and Plan: 03/14: Patient was less responsive, tachypneic, short of breath, requiring more oxygen. She was breathing about 45-50 times a minute. Patient was brought to the ICU, intubated and placed on mechanical ventilation. -sedated with propofol infusion and will add Versed infusion Chest x-ray reviewed shows 1. Diffuse lung disease with improvement at right lung base, consistent with pneumonia without or with superimposed pulmonary edema.2. Stable small loculated left pleural effusion. Will give Lasix -currently on CMV mode of ventilation Currently on 60% FiO2 and 12 of PEEP. Will try to wean FiO2. Decrease tidal volume to 400 -will place patient on bronchodilators -patient possibly aspirated during intubation, continue cefepime and Flagyl (2) Septic shock: Code(s): A41.9 - Sepsis, unspecified organism; R65.21 - Severe sepsis with septic shock Status: Acute Assessment and Plan: 03/11: Patient presented with fevers, chills, not feeling well, tachypnea, cough, shortness of breath -likely source pneumonia, UTI, endocarditis -was found to be hypotensive in the ER, was given 2.5 L IV fluid bolus on 03/11, on admission, additional IV fluid bolus was given in the ICU after she was fluid responsive by NICOM -central line was placed in the right femoral vein on 03/11 -patient is off Levophed now -03/11 blood cultures growing Staph aureus 2/2 bottles, (oxacillin sensitive Staph aureus) -03/11 urine cultures no growth -03/13: patient was initially on vancomycin and Zosyn, both of them were discontinued and patient was started on Nafcillin 2 g IV q.4 hours. 03/13 repeat blood cultures are growing Staph aureus -03/11/2022 echocardiogram: LV chamber dimension is mildly enlarged, LV systolic function is normal EF 60-65%, LV diastolic function is normal -03/15 DEMI done today showed no significant vegetations suggesting against endocarditis (3) Pneumonia: Code(s): J18.9 - Pneumonia, unspecified organism Status: Acute Assessment and Plan: Patient presented with cough, fevers, chills. Cough is productive of yellow-colored sputum. -chest x-ray this morning: Worsened diffuse lung disease consistent with pneumonia, worsened moderate size left pleural effusion -continue bronchodilators MSSA pneumonia, possible aspiration component -continue antibiotics as above -03/11/2022 CT scan chest/abdomen/pelvis did not show any pulmonary embolism, diffuse lung disease likely a combination of pulmonary edema pneumonia, small right and moderate size left pleural effusion, small pericardial effusion. Mediastinal left supraclavicular and pratima portal lymphadenopathy likely reactive. 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 When asked if she shares needles she did say yes -will watch for withdrawal -03/14: Urine drug screen was negative Will start low-dose fentanyl to prevent withdrawal Screen for hepatitis and HIV (6) Swelling of lower extremity: Code(s): M79.89 - Other specified soft tissue disorders Status: Acute Assessment and Plan: Bilateral lower extremity pitting edema with multiple skin lesions -patient denies
[2022-03-15] MEDS: FUROSEMIDE INJ 40 MG/4 ML VIAL IV PUSH (09:01)
[2022-03-15] MEDS: POTASSIUM CHLORIDE 20 MEQ PACKET (FOR LIQUID) 40 MEQ FEED TUBE (09:01)
[2022-03-15] MEDS: ENOXAPARIN 40 MG/0.4 ML SYRINGE SUB-Q (09:01)
--- NOTE | 2022-03-15 09:59 | PM.IMPN ---
Progress Note: A&P Assessment and Plan (1) Septic shock: Code(s): A41.9 - Sepsis, unspecified organism; R65.21 - Severe sepsis with septic shock Status: Acute Assessment and Plan: Patient presented with fevers, chills, not feeling well, tachypnea, cough, shortness of breath -likely source pneumonia, possible endocarditis - appreciate financial assistant help. Will broaden antibiotic coverage to nafcillin and cefepime. - Will monitor in the ICU. (2) Pneumonia: Code(s): J18.9 - Pneumonia, unspecified organism Status: Acute Assessment and Plan: Chest x-ray noted no having worsening respiratory distress broaden antibiotics to nafcillin and cefepime had to be intubated yesterday for respiratory Failure managed per ICU (3) Drug abuse: Code(s): F19.10 - Other psychoactive substance abuse, uncomplicated Status: Acute Assessment and Plan: Urine drug screen was positive for opiates and amphetamines -patient does agree to methamphetamine use and IV fentanyl use. When asked if she shares needles she did say yes -will watch for withdrawal (4) Swelling of lower extremity: Code(s): M79.89 - Other specified soft tissue disorders Status: Acute Assessment and Plan: Bilateral lower extremity pitting edema with multiple skin lesions -03/11/2022 lower extremity venous Dopplers: No deep vein thrombosis (5) Thrombocytopenia: Code(s): D69.6 - Thrombocytopenia, unspecified Status: Acute Assessment and Plan: Thrombocytopenia secondary to splenomegaly as seen on CT of the abdomen and/or septic shock, bacteremia monitor (6) Electrolyte abnormality: Code(s): E87.8 - Other disorders of electrolyte and fluid balance, not elsewhere classified Status: Acute Assessment and Plan: monitor and replace (7) Bacteremia: Code(s): R78.81 - Bacteremia Status: Acute Assessment and Plan: continue IV nafcillin cultures grew MSSA possible endocarditis, appreciate Cardiology consult Subjective Date/time seen: 03/15/22 09:59 intubated Exam Narrative: General: Young female sedated intubated HEENT:? Pupils are equal and reactive, sclera is clear, white patches on the tongue and piercing noted, ETT in place Neck:? supple, Respiratory:?Bilateral rales/crackles, adequate air entry, ETT in place Cardiac:? sinus tachycardia, S1-S is normal 2 Abdomen:? Soft, nontender, normoactive bowel sounds, nondistended Extremities:? erythema and swelling of the hands, bilateral lower extremity 3+ pitting edema from the knee downward Neuro:? Patient is sedated and intubated, PERRL Skin:? Multiple skin lesions on her forehead and lower extremities which seem to be drying up Psych:? Unable to examine at this time HENMT: Ears: TM's normal bilaterally Face/Nose/Sinus: Normal nares present Mouth: Yes moist mucous membranes Eyes: General: appearance normal, both eyes and all related structures Sclera: sclerae normal Neck: Neck: supple and no JVD Resp: Auscultation: crackles, rhonchi and diminished lung sounds Cardio: Rate: regular rate Rhythm: regular rhythm Skin: General skin exam: lesion and rashes Lesions: lesion noted Rashes: rashes noted Neuro: Cranial nerves: Yes Normal hearing present Speech: normal speech Motor exam (neuro): Normal motor muscle tone present throughout Sensory Exam: normal sensation Extrem: General: pedal edema bilaterally Objective Data Vital Signs Vital Signs: Vital Signs - 24 hr 03/14/22 11:02 03/14/22 10:53 03/14/22 11:11 Temperature Pulse Rate 117 H 107 H 104 H Respiratory Rate 24 H 24 H Blood Pressure Pulse Oximetry 93 Oxygen Delivery Mechanical Ventilation Fraction of Inspired Oxygen 100 03/14/22 11:17 03/14/22 11:32 03/14/22 11:35 Temperature Pulse Rate 107 H 111 H 120 H Respiratory Rate 30 H 23 H 26 H Blood Pressure Pulse Oximetry Oxygen [employer]
[2022-03-15 10:26] LABS: HIV 1/2 Ab P24 Ag Result Negative (Negative)
[2022-03-15 10:58] LABS: Hepatitis B Surface Antigen Negative (Negative)
[2022-03-15 11:03] LABS: HAV RESULT Negative (Negative); Hepatitis B Core IgM Result Negative (Negative)
[2022-03-15 11:18] LABS: Hepatitis C Virus Antibody Reactive (Negative)
[2022-03-15] MEDS: ACETAMINOPHEN ELIXIR 325 MG/10.15 ML UDC 650 MG PO ×2 (12:00→20:31)
[2022-03-15] MEDS: MIDAZOLAM 100MG/NS 100ML(*CRX) 100 MG/100 ML BAG 8 MG IV CONT (15:34)
[2022-03-16] VITALS (56 sets, daily range): BP systolic 106–136; BP diastolic 61–82; PULSE 93–116; RESP 19–39; TEMP 37.4–38.6; O2SAT 96–99
[2022-03-16] MEDS: PROPOFOL IV EMULSION 100 ML 29.55 MG IV CONT ×8 (00:09→23:33)
[2022-03-16] MEDS: MIDAZOLAM 100MG/NS 100ML(*CRX) 100 MG/100 ML BAG 10 MG IV CONT ×3 (01:55→18:02)
[2022-03-16] MEDS: IPRATROPIUM BR 0.02% INH SOLN 0.5 MG/2.5 ML VIAL INHALATION ×4 (02:38→20:21)
[2022-03-16] MEDS: LEVALBUTEROL NEB 1.25 MG/3 ML 0.63 MG INHALATION ×4 (02:38→20:20)
[2022-03-16 05:19] LABS: Alanine Aminotransferase 10 U/L (6-35); Albumin Level 2.8 g/dL (3.5-5.1); Alkaline Phosphatase 107 U/L (38-126); Anion Gap 7 mmol/L (8-16); Aspartate Amino Transferase 18 U/L (14-36); Bilirubin,Total 0.6 mg/dL (0.2-1.3); Blood Urea Nitrogen 13 mg/dL (7-17); Calcium 7.5 mg/dL (8.4-10.2); Carbon Dioxide 32 mmol/L (22-30); Chloride 101 mmol/L (98-107); Estimated CRCL calculation 153 ml/min; Estimated Glomerular Filt Rate > 60; Glucose 102 mg/dL (65-110); Magnesium 2.3 mg/dL (1.6-2.3); Phosphorus 3.1 mg/dL (2.5-4.5); Potassium 3.3 mmol/L (3.4-5.0); Sodium 140 mmol/L (137-145)
[2022-03-16] MEDS: metroNIDAZOLE 500 MG/ISO 100ML 500 MG/100 ML BAG 100 MG IVPB ×3 (05:20→21:07)
[2022-03-16] MEDS: CENTRAL LINE FLUSH 10 ML IV PUSH ×3 (05:20→22:11)
[2022-03-16 05:22] LABS: Alveolar/Arterial O2 Gradient 177.6 mmHg; Base Excess ABG 8.2 mEq/l (+/-2.0); Basophils Absolute Auto 0.1 K/mm3 (0.0-0.1); Basophils Percent Auto 0.4 % (0.2-1.2); Carboxyhemoglobin 0.2 % THb (0-2.0); Eosinophils Absolute Auto 0.1 K/mm3 (0-0.3); Fractional Inspired Oxygen 50 %; HCO3 ABG 32.8 mEq/l (22.0-26.0); Hematocrit 27.6 % (37.0-47.0); Hemoglobin 8.7 g/dL (12.0-15.0); Immature Granulocyte Absolute 0.62 K/mm3 (0.00-0.031); Immature Granulocyte Percent A 4.9 % (0-0.5); Lymphocytes Absolute Auto 1.83 K/mm3 (0.9-3.2); Lymphocytes Percent Auto 14.3 % (18.3-44.2); Mean Corpuscular HGB Conc 31.5 g/dl (32-36); Mean Corpuscular Hemoglobin 26.7 pg (26-34); Mean Corpuscular Volume 84.7 fl (80-100); Mean Platelet Volume 10.3 fl (7.4-10.4); Methemoglobin ABG 0.4 %THb (0-1.5); Monocytes Absolute Auto 0.9 K/mm3 (0.1-0.6); Monocytes Percent Auto 6.9 % (2.6-8.5); Neutrophils Absolute Auto 9.3 K/mm3 (1.3-6.7); Neutrophils Percent Auto 72.5 % (45.5-73.1); Oxygen Content ABG 16.2 %vol (16.0-22.0); Oxygen Saturation ABG 98.7 % (95.0-100.0); Oxyhemoglobin 97.2 % THb (90.0-100.0); PCO2 ABG 45.2 mmHg (35.0-45.0); PO2 ABG 128.1 mmHg (80.0-100.0); PO2 FiO2 Ratio Arterial Blood 2.56 %; Platelet Count Result 308 k/mm3 (150-375); Red Blood Count 3.26 M/mm3 (4.2-5.4); Reduced Hemoglobin 2.2 %THb (0-5.0); Total Hemoglobin 11.7 g/dL (12.0-18.0); White Blood Count 12.8 K/mm3 (4.5-10.0); pH ABG 7.478 (7.350-7.450)
[2022-03-16 05:24] LABS: Arterial Blood Gas Ventilator rate 18 /MIN; Device VENTILATOR; Modified Allen's Test Pass; Site Drawn RIGHT RADIAL
[2022-03-16 05:25] LABS: Arterial Blood Gas PEEP 12 cmH2O; Arterial Blood Gas Tidal Volume 400 ml; Arterial Blood Gas Vent Mode CMV
--- NOTE | 2022-03-16 08:29 | WPDINTPN ---
Progress Note: A&P Assessment and Plan (1) Acute respiratory failure: Code(s): J96.00 - Acute respiratory failure, unspecified whether with hypoxia or hypercapnia Status: Acute Assessment and Plan: 03/14: Patient was less responsive, tachypneic, short of breath, requiring more oxygen. She was breathing about 45-50 times a minute. Patient was brought to the ICU, intubated and placed on mechanical ventilation. MSSA pneumonia, ARDS, component of pulmonary edema -sedated with propofol Versed and fentanyl Chest x-ray reviewed -advance ET tube by 2 cm Continue gentle pieces with Lasix -currently on CMV mode of ventilation Currently on 50 % FiO2 and 12 of PEEP. Decrease PEEP to 10 and FiO2 45%. Continue tidal volume to 400 -will place patient on bronchodilators -patient possibly aspirated during intubation, continue cefepime and Flagyl (2) Septic shock: Code(s): A41.9 - Sepsis, unspecified organism; R65.21 - Severe sepsis with septic shock Status: Acute Assessment and Plan: 03/11: Patient presented with fevers, chills, not feeling well, tachypnea, cough, shortness of breath -likely source pneumonia, UTI, endocarditis -was found to be hypotensive in the ER, was given 2.5 L IV fluid bolus on 03/11, on admission, additional IV fluid bolus was given in the ICU after she was fluid responsive by NICOM -central line was placed in the right femoral vein on 03/11 -patient is off Levophed now -03/11 blood cultures growing Staph aureus 2/2 bottles, (oxacillin sensitive Staph aureus) -03/11 urine cultures no growth -03/11/2022 echocardiogram: LV chamber dimension is mildly enlarged, LV systolic function is normal EF 60-65%, LV diastolic function is normal -03/13: patient was initially on vancomycin and Zosyn, both of them were discontinued and patient was started on Nafcillin 2 g IV q.4 hours. 03/13 repeat blood cultures are growing Staph aureus -03/15 DEMI done today showed no significant vegetations suggesting against endocarditis 03/15 -repeat blood culture sent and are pending 03/15 -upper extremity Dopplers were done and were negative for DVT (3) Pneumonia: Code(s): J18.9 - Pneumonia, unspecified organism Status: Acute Assessment and Plan: MSSA pneumonia, possible aspiration component -continue antibiotics as above -03/11/2022 CT scan chest/abdomen/pelvis did not show any pulmonary embolism, diffuse lung disease likely a combination of pulmonary edema pneumonia, small right and moderate size left pleural effusion, small pericardial effusion. Mediastinal left supraclavicular and pratima portal lymphadenopathy likely reactive. 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 When asked if she shares needles she did say yes -will watch for withdrawal -03/14: Urine drug screen was negative Continue fentanyl to prevent withdrawal Hepatitis C antibody positive. RNA pending HIV screen negative (6) Swelling of lower extremity: Code(s): M79.89 - Other specified soft tissue disorders Status: Acute Assessment and Plan: Bilateral lower extremity pitting edema with multiple skin lesions -patient denies any pets at home -she does state she picks on her skin on her lower extremities -could be related to cellulitis, right heart failure -proBNP was 412 -03/11/2022 lower extremity venous Dopplers: No deep vein
[2022-03-16] MEDS: CALCIUM GLUC 2,000 MG/NS 100ML 2,000 MG/100 ML BAG 100 MG IVPB (08:43)
[2022-03-16] MEDS: FUROSEMIDE INJ 40 MG/4 ML VIAL IV PUSH (08:43)
[2022-03-16] MEDS: PANTOPRAZOLE SODIUM IV 40 MG VIAL IV PUSH (08:44)
[2022-03-16] MEDS: ENOXAPARIN 40 MG/0.4 ML SYRINGE SUB-Q (08:44)
[2022-03-16] MEDS: MINERAL OIL/WHITE PETROLATUM OINTMENT 1 APPLIC EACH EYE ×2 (08:44→21:06)
[2022-03-16] MEDS: POTASSIUM CHLORIDE 20 MEQ PACKET (FOR LIQUID) 40 MEQ FEED TUBE ×2 (08:46→13:29)
--- NOTE | 2022-03-16 10:32 | PCNFU ---
Nutrition Follow-Up Complete: Inadequate energy intake related to NPO status, mechanical ventilation as evidenced by need for full tube feeding. goal: Meet estimated protein energy requirements Patient is meeting current goal. We will continue current goal. Pt current nutrition is Vital HP at 60 ml/hr. Last recorded weight is 88.5 kg, down from 92.6 kg on admit. Bowel Motility:+BM reported 03/15 Labs Reviewed:Cr 0.5,Alb 2.8,Na 3.3, Hgb 8.7,Hct 27.6 Meds Noted:Propofol 29/55 ml/hr,Versed,Protonix, Flagyl, Atrovent. Skin: WNL Additional Notes: patient remains on mechanical vent and tube feedings of Vital HP at 60 ml/hr with the additional 780 kcals. Total kcal intake 2100/115 gms protein/1100 ml water. Meeting 100% kcal and protein needs. Flush 30 ml q 4 hours. Agree with diet orders. Monitoring tube feeding tolerance, weights, labs, plan of care, meds. Follow daily in ICU rounds and reassess Tuesdays and Fridays per policy.
[2022-03-16] MEDS: ACETAMINOPHEN ELIXIR 325 MG/10.15 ML UDC 650 MG PO ×2 (12:24→20:01)
--- NOTE | 2022-03-16 13:01 | PM.IMPN ---
Progress Note: A&P Assessment and Plan (1) Septic shock: Code(s): A41.9 - Sepsis, unspecified organism; R65.21 - Severe sepsis with septic shock Status: Acute Assessment and Plan: Patient presented with fevers, chills, not feeling well, tachypnea, cough, shortness of breath -likely source pneumonia, possible endocarditis - appreciate acute care nurse practitioner help. Will broaden antibiotic coverage to nafcillin and cefepime. - Will monitor in the ICU. (2) Pneumonia: Code(s): J18.9 - Pneumonia, unspecified organism Status: Acute Assessment and Plan: Chest x-ray noted broaden antibiotics to nafcillin and cefepime Remains intubated managed per ICU (3) Drug abuse: Code(s): F19.10 - Other psychoactive substance abuse, uncomplicated Status: Acute Assessment and Plan: Urine drug screen was positive for opiates and amphetamines -patient does agree to methamphetamine use and IV fentanyl use. When asked if she shares needles she did say yes -will watch for withdrawal (4) Swelling of lower extremity: Code(s): M79.89 - Other specified soft tissue disorders Status: Acute Assessment and Plan: likely from venous insufficiency. (5) Thrombocytopenia: Code(s): D69.6 - Thrombocytopenia, unspecified Status: Acute Assessment and Plan: Thrombocytopenia secondary to splenomegaly as seen on CT of the abdomen and/or septic shock, bacteremia monitor (6) Electrolyte abnormality: Code(s): E87.8 - Other disorders of electrolyte and fluid balance, not elsewhere classified Status: Acute Assessment and Plan: monitor and replace (7) Bacteremia: Code(s): R78.81 - Bacteremia Status: Acute Assessment and Plan: continue IV nafcillin cultures grew MSSA Echo did not reveal any vegetation. Subjective Date/time seen: 03/16/22 13:01 Patient is intubated. Exam Narrative: General: Young female sedated intubated HEENT:? Pupils are equal and reactive, sclera is clear, white patches on the tongue and piercing noted, ETT in place Neck:? supple, Respiratory:?Bilateral rales/crackles, adequate air entry, ETT in place Cardiac:? sinus tachycardia, S1-S is normal 2 Abdomen:? Soft, nontender, normoactive bowel sounds, nondistended Extremities:? erythema and swelling of the hands, bilateral lower extremity 3+ pitting edema from the knee downward Neuro:? Patient is sedated and intubated, PERRL, on loading sedation patient becomes agitated and a synchronous with the ventilator Skin:? Multiple skin lesions on her forehead and lower extremities which seem to be drying up Psych:? Unable to examine at this time Objective Data Vital Signs Vital Signs: Vital Signs - 24 hr 03/15/22 13:49 03/15/22 13:49 03/15/22 14:00 Temperature Pulse Rate 108 H 108 H 110 H Respiratory Rate 32 H 32 H Blood Pressure Pulse Oximetry Oxygen Delivery Fraction of Inspired Oxygen 03/15/22 14:00 03/15/22 14:44 03/15/22 14:51 Temperature 99.4 F Pulse Rate 110 H 101 H 108 H Respiratory Rate 24 H 30 H Blood Pressure 120/64 Pulse Oximetry 97 98 Oxygen Delivery Mechanical Ventilation Fraction of Inspired Oxygen 60 03/15/22 15:06 03/15/22 14:00 03/15/22 14:00 Temperature Pulse Rate 107 H 102 H 102 H Respiratory Rate 23 H 25 H 25 H Blood Pressure Pulse Oximetry Oxygen Delivery Fraction of Inspired Oxygen 03/15/22 15:34 03/15/22 15:34 03/15/22 16:00 Temperature 99.5 F Pulse Rate 104 H 104 H 101 H Respiratory Rate 27 H 27 H 27 H Blood Pressure 117/72 Pulse Oximetry 100 Oxygen Delivery Fraction of Inspired Oxygen 03/15/22 16:00 03/15/22 16:00 03/15/22 16:00 Temperature Pulse Rate 105 H Respiratory Rate Blood Pressure Pulse Oximetry 98 Oxygen Delivery Mechanical Ventilation Fraction of Inspired Oxygen 60 60 03/15/22 16:00 03/15/22 16:00 03/15/22
[2022-03-16] MEDS: FENTANYL 2,500MCG/NS250ML(*CRX 2,500 MCG/250 ML BAG 15 MCG IV CONT (17:08)
[2022-03-17] VITALS (67 sets, daily range): BP systolic 77–139; BP diastolic 35–80; PULSE 84–122; RESP 18–98; TEMP 37.6–39.4; O2SAT 93–100
[2022-03-17] MEDS: LEVALBUTEROL NEB 1.25 MG/3 ML 0.63 MG INHALATION ×4 (02:05→20:36)
[2022-03-17] MEDS: IPRATROPIUM BR 0.02% INH SOLN 0.5 MG/2.5 ML VIAL INHALATION ×4 (02:05→20:35)
[2022-03-17] MEDS: PROPOFOL IV EMULSION 100 ML 29.55 MG IV CONT ×7 (02:38→22:04)
[2022-03-17] MEDS: MIDAZOLAM 100MG/NS 100ML(*CRX) 100 MG/100 ML BAG 10 MG IV CONT ×3 (04:05→22:04)
[2022-03-17 04:52] LABS: Hematocrit 27.7 % (37.0-47.0); Hemoglobin 8.8 g/dL (12.0-15.0); Mean Corpuscular HGB Conc 31.8 g/dl (32-36); Mean Corpuscular Hemoglobin 26.4 pg (26-34); Mean Corpuscular Volume 83.2 fl (80-100); Mean Platelet Volume 9.5 fl (7.4-10.4); Platelet Count Result 438 k/mm3 (150-375); Red Blood Count 3.33 M/mm3 (4.2-5.4); White Blood Count 13.7 K/mm3 (4.5-10.0)
[2022-03-17] MEDS: CENTRAL LINE FLUSH 10 ML IV PUSH ×3 (05:25→19:59)
[2022-03-17] MEDS: metroNIDAZOLE 500 MG/ISO 100ML 500 MG/100 ML BAG 100 MG IVPB ×3 (05:25→21:32)
[2022-03-17 05:47] LABS: Alveolar/Arterial O2 Gradient 70.4 mmHg; Base Excess ABG 10.2 mEq/l (+/-2.0); Carboxyhemoglobin 0.3 % THb (0-2.0); Fractional Inspired Oxygen 30 %; HCO3 ABG 34.4 mEq/l (22.0-26.0); Methemoglobin ABG 0.4 %THb (0-1.5); Oxygen Content ABG 14.7 %vol (16.0-22.0); Oxygen Saturation ABG 97.5 % (95.0-100.0); PCO2 ABG 44.6 mmHg (35.0-45.0); PO2 ABG 91.1 mmHg (80.0-100.0); PO2 FiO2 Ratio Arterial Blood 3.04 %; Reduced Hemoglobin 3.3 %THb (0-5.0); Total Hemoglobin 10.8 g/dL (12.0-18.0)
[2022-03-17 05:48] LABS: Arterial Blood Gas PEEP 10 cmH2O; Arterial Blood Gas Vent Mode CMV; Arterial Blood Gas Ventilator rate 18 /MIN; Device VENTILATOR; Modified Allen's Test Pass; Site Drawn LEFT RADIAL; pH ABG 7.505 (7.350-7.450)
[2022-03-17 05:49] LABS: Arterial Blood Gas Tidal Volume 400 ml
[2022-03-17] MEDS: FENTANYL 2,500MCG/NS250ML(*CRX 2,500 MCG/250 ML BAG 20 MCG IV CONT ×2 (06:10→18:46)
[2022-03-17 06:16] LABS: Alanine Aminotransferase 10 U/L (6-35); Albumin Level 2.8 g/dL (3.5-5.1); Alkaline Phosphatase 87 U/L (38-126); Anion Gap 6 mmol/L (8-16); Aspartate Amino Transferase 18 U/L (14-36); Bilirubin,Total 0.5 mg/dL (0.2-1.3); Blood Urea Nitrogen 11 mg/dL (7-17); Calcium 7.5 mg/dL (8.4-10.2); Carbon Dioxide 31 mmol/L (22-30); Chloride 103 mmol/L (98-107); Estimated CRCL calculation 186 ml/min; Estimated Glomerular Filt Rate > 60; Glucose 119 mg/dL (65-110); Potassium 3.2 mmol/L (3.4-5.0); Sodium 140 mmol/L (137-145)
[2022-03-17] MEDS: POTASSIUM CHLORIDE 20 MEQ PACKET (FOR LIQUID) 40 MEQ FEED TUBE (09:09)
[2022-03-17] MEDS: MINERAL OIL/WHITE PETROLATUM OINTMENT 1 APPLIC EACH EYE ×2 (09:13→19:59)
[2022-03-17] MEDS: PANTOPRAZOLE SODIUM IV 40 MG VIAL IV PUSH (09:14)
--- NOTE | 2022-03-17 09:39 | WPDINTPN ---
Progress Note: A&P Assessment and Plan (1) Acute respiratory failure: Code(s): J96.00 - Acute respiratory failure, unspecified whether with hypoxia or hypercapnia Status: Acute Assessment and Plan: MSSA pneumonia, ARDS, component of pulmonary edema 03/14: intubated and placed on mechanical ventilation. -sedated with propofol Versed and fentanyl Chest x-ray reviewed -advance ET tube by 2 cm 1. Stable diffuse lung disease, consistent with pneumonia. 2. Worsened moderate-sized loculated left pleural effusion. Continue gentle diuresis with Lasix -currently on CMV mode of ventilation Currently on 30 % FiO2 and 10 of PEEP. Decrease PEEP to 8 Continue bronchodilators Continue nafcillin cefepime and Flagyl Patient continues to be febrile In light of loculated pleural effusion with presence of pneumonia. I will check CT chest to further evaluate and ordered diagnostic and therapeutic thoracentesis on the left side. May need chest tube if concerns of empyema (2) Septic shock: Code(s): A41.9 - Sepsis, unspecified organism; R65.21 - Severe sepsis with septic shock Status: Acute Assessment and Plan: 03/11: Patient presented with fevers, chills, not feeling well, tachypnea, cough, shortness of breath -likely source pneumonia, UTI, endocarditis -was found to be hypotensive in the ER, was given 2.5 L IV fluid bolus on 03/11, on admission, additional IV fluid bolus was given in the ICU after she was fluid responsive by NICOM -central line was placed in the right femoral vein on 03/11 -patient is off Levophed now -03/11 blood cultures growing Staph aureus 2/2 bottles, (oxacillin sensitive Staph aureus) -03/11 urine cultures no growth -03/11/2022 echocardiogram: LV chamber dimension is mildly enlarged, LV systolic function is normal EF 60-65%, LV diastolic function is normal -03/13: patient was initially on vancomycin and Zosyn, both of them were discontinued and patient was started on Nafcillin 2 g IV q.4 hours. 03/13 repeat blood cultures are growing Staph aureus -03/15 DEMI done today showed no significant vegetations suggesting against endocarditis 03/15 -repeat blood culture sent and are negative till now 03/15 -upper extremity Dopplers were done and were negative for DVT Patient continues to be febrile. In light of loculated left pleural effusion with presence of pneumonia. I will check CT chest to further evaluate and order diagnostic and therapeutic thoracentesis on the left side. May need chest tube if concerns of empyema (3) Pneumonia: Code(s): J18.9 - Pneumonia, unspecified organism Status: Acute Assessment and Plan: MSSA pneumonia, possible aspiration component -continue antibiotics as above -03/11/2022 CT scan chest/abdomen/pelvis did not show any pulmonary embolism, diffuse lung disease likely a combination of pulmonary edema pneumonia, small right and moderate size left pleural effusion, small pericardial effusion. Mediastinal left supraclavicular and pratima portal lymphadenopathy likely reactive. Cholelithiasis, 4.8 cm mass in left ovary, most likely hemorrhagic cyst, pelvic ultrasound recommended, moderate splenomegaly (4) UTI (urinary tract infection): Code(s): N39.0 - Urinary tract infection, site not specified Status: Acute Assessment and Plan: UA was reflective of a UTI, but urine culture was negative antibiotics as above, cultures negative (5) Drug abuse: Code(s): F19.10 - Other psychoactive substance abuse, uncomplicated Status: Acute Assessment and Plan: Urine drug screen was positive for opiates and amphetamines -patient does admit to methamphetamine use and IV fentanyl use. When asked if she shares needles she did say yes -will watch for withdrawal -03/14: Urine drug screen was negative Continue fentanyl to prevent withdrawal Hepatitis C antibody positive. RNA pending HIV screen negative (6) Swelling of lower extremity:
[2022-03-17] MEDS: ACETAMINOPHEN ELIXIR 325 MG/10.15 ML UDC 650 MG PO ×3 (09:52→22:09)
[2022-03-17] MEDS: KCL 40 MEQ/WATER 100 ML 100 ML 25 ML IVPB (09:52)
--- NOTE | 2022-03-17 10:44 | PCFNICU ---
ICU Rounding Note: Pt current nutrition is Vital HP at 60 ml/hr. Last recorded weight is 88.7 kg. Bowel Motility:+Bm reported 03/15 Labs Reviewed:Cr 0.4,Alb 2.8,K 3.2 Meds Noted:Versed, Fentanyl, Protonix, Flagyl, Atrovent, Propofol at 29.55 ml/wz=576 ml/hr. Skin: WNL Additional Notes: Patient remains on mechanical vent and tube feedings of Vital HP at 60 ml/hr-tolerating per nursing. Flush continues at 30 ml q 4 hours. Will continue to monitor propofol infusion for any tube feeding rate changes. Surgery consult-possible chest tube. Plans for thoracentesis. Agree with diet orders. Monitoring: Monitoring tube feeding tolerance, weights, labs, plan of care, meds. Follow daily in ICU rounds and reassess Tuesdays and Fridays per policy..
--- NOTE | 2022-03-17 11:00 | PM.CNGS ---
Assessment and Plan Assessment and plan (1) Empyema: Code(s): J86.9 - Pyothorax without fistula Status: Acute Assessment and Plan: d/w and reviewed imaging c radiology, plan to place large caliber drain in L sided empyema, ultimately pt will likely need VATS c CT surgery, cont abx (2) Acute respiratory failure: Code(s): J96.00 - Acute respiratory failure, unspecified whether with hypoxia or hypercapnia Status: Acute Assessment and Plan: cont vent per network solutions architect team (3) Septic shock: Code(s): A41.9 - Sepsis, unspecified organism; R65.21 - Severe sepsis with septic shock Status: Acute Assessment and Plan: multiple sources, cont abx, will get CT guided drain to L empyema History of Present Illness Consult details Consult date: 03/17/22 Reason for consult: other (empyema) Requesting physician: Humberto Jauregui MD Narrative: Pt is a 31 y/o F c h/o polysubstance abuse presenting c ARF, sepsis. Pt admitted to ICU and on mechanical ventilation at this point. Pt s PMH, although Hep C positive and endocarditis. Review of Systems Review of Systems: ROS unobtainable: Yes unobtainable due to endotracheal tube and unobtainable due to medical condition PMFSH Social History Social History Smoking packs per day: 1 Smoking cigarettes per day: 20.0 Years smoked: 15 Smoking pack-years: 15.00 Smoking status: Former smoker Alcohol intake: never Substance use: never Other substance usage details: toxicology screen positive for amphetamines--pt. denies drug use Lack of Transportation: No Lack of Food: Never True Current Housing: I Have Housing Concerned About Future Housing: No Difficulty Paying Gas/Electric Bills: No Difficulty Paying for Meds: No Currently Unemployed: No Education: Decline to Answer Difficulty w/ Childcare or Family Care: No Spiritual care concerns: No Meds Home Medications and Allergies Home Medications Medication Instructions Recorded Confirmed Type No Home Medications 03/11/22 03/11/22 History Allergies Allergy/AdvReac Type Severity Reaction Status Date / Time APPLE/PEARS Allergy Mild RASH Uncoded 12/10/08 11:12 Vital Signs Vital Signs - 24 hr 03/16/22 11:45 03/16/22 12:00 03/16/22 12:17 Temperature 37.9 C H Pulse Rate 108 H 107 H 103 H Respiratory Rate 28 H 27 H Blood Pressure 134/77 Pulse Oximetry 98 98 Oxygen Delivery Mechanical Ventilation Fraction of Inspired Oxygen 45 03/16/22 12:23 03/16/22 12:23 03/16/22 12:24 Temperature 38.0 C H Pulse Rate 103 H 102 H Respiratory Rate 27 H 27 H Blood Pressure Pulse Oximetry Oxygen Delivery Fraction of Inspired Oxygen 03/16/22 12:00 03/16/22 13:15 03/16/22 13:24 Temperature 37.9 C H Pulse Rate 111 H Respiratory Rate 28 H Blood Pressure Pulse Oximetry Oxygen Delivery Fraction of Inspired Oxygen 40 03/16/22 13:48 03/16/22 12:00 03/16/22 13:58 Temperature Pulse Rate 104 H 101 H Respiratory Rate 27 H 28 H Blood Pressure Pulse Oximetry 99 Oxygen Delivery Mechanical Ventilation Fraction of Inspired Oxygen 40 03/16/22 13:58 03/16/22 13:59 03/16/22 14:05 Temperature Pulse Rate 102 H 102 H 93 Respiratory Rate 23 H 23 H 20 Blood Pressure Pulse Oximetry Oxygen Delivery Fraction of Inspired Oxygen 03/16/22 14:20 03/16/22 14:00 03/16/22 12:00 Temperature 37.9 C H Pulse Rate 101 H 99 107 H Respiratory Rate 22 H Blood Pressure 121/67 Pulse Oximetry 98 98 Oxygen Delivery Mechanical Ventilation Fraction of Inspired Oxygen 40 03/16/22 14:00 03/16/22 16:51 03/16/22 16:00 Temperature Pulse Rate 114 H 112 H 112 H Respiratory Rate 24 H 34 H Blood Pressure Pulse Oximetry Oxygen Delivery Fraction of Inspired Oxygen 03/16/22 16:51 03/16/22 17:08 03/16/22 17:08 [facility]
[2022-03-17] MEDS: ALBUMIN HUMAN 25% 25 GM/100 ML 100 ML IVPB ×2 (12:12→17:11)
[2022-03-17] MEDS: FUROSEMIDE INJ 40 MG/4 ML VIAL IV PUSH (12:13)
[2022-03-17 12:33] LABS: Glucose 89 mg/dL (65-110)
[2022-03-17 12:52] LABS: Appearance Pleural Fluid Cloudy (Clear); Color Pleural Fluid Red (Colorless); Pleural fluid source Pleural fluid
[2022-03-17 12:53] LABS: Lymphocytes Pleural Fluid 26 %; Macrophages Pleural Fluid 2 %; Monocytes Pleural Fluid 5 %; Neutrophils Pleural Fluid 64 % (0-25); Nucleated Cell Pleural Fluid 1390 /uL (0-1000); RBC Pleural Fluid 26388 /uL (0-0)
[2022-03-17 12:54] LABS: Mesothelial Cells Pleural Flui 3 %
[2022-03-17 16:44] LABS: Anion Gap 10 mmol/L (8-16); Blood Urea Nitrogen 10 mg/dL (7-17); Calcium 7.8 mg/dL (8.4-10.2); Carbon Dioxide 31 mmol/L (22-30); Chloride 100 mmol/L (98-107); Estimated CRCL calculation 153 ml/min; Estimated Glomerular Filt Rate > 60; Glucose 95 mg/dL (65-110); Potassium 3.5 mmol/L (3.4-5.0); Sodium 141 mmol/L (137-145)
[2022-03-17] MEDS: LORazepam INJ (*CRX) 2 MG/ML VIAL 4 MG IV PUSH (17:49)
[2022-03-17] MEDS: dexmedeTOMIDine 400 MCG/100 ML 400 MCG/100 ML BAG 11.09 MCG IV CONT (17:49)
--- NOTE | 2022-03-17 21:15 | PC.NURSE ---
Spoke with Dr. aJuregui regarding current patient status and low blood pressure as well as patient breath stacking. Stop Precedex, Give albumin bolus 500ml x1. Give 50mg Germain IVP x1. Start Levophed if needed.
[2022-03-17] MEDS: NOREPINEPHRINE 8 MG/D5W 250 ML 8 MG/250 ML BAG 9.38 MG IV CONT (21:26)
[2022-03-17] MEDS: ALBUMIN HUMAN 5% 25 GM/500 ML BTL IV CONT (21:31)
[2022-03-17] MEDS: ROCURONIUM BROMIDE 50 MG/5 ML VIAL IV PUSH (21:32)
--- NOTE | 2022-03-17 22:59 | PC.NURSE ---
Despite ice bags and tylenol patient's temperature remains to rise. Patient placed on cooling blanket.
[2022-03-18] VITALS (87 sets, daily range): BP systolic 99–140; BP diastolic 48–78; PULSE 85–131; RESP 19–39; TEMP 36.8–39.4; O2SAT 94–100
[2022-03-18] MEDS: PROPOFOL IV EMULSION 100 ML 29.55 MG IV CONT ×6 (01:15→18:18)
[2022-03-18] MEDS: IPRATROPIUM BR 0.02% INH SOLN 0.5 MG/2.5 ML VIAL INHALATION ×4 (01:20→20:53)
[2022-03-18] MEDS: LEVALBUTEROL NEB 1.25 MG/3 ML 0.63 MG INHALATION ×4 (01:20→20:41)
[2022-03-18 04:22] LABS: Alanine Aminotransferase 9 U/L (6-35); Albumin Level 3.3 g/dL (3.5-5.1); Alkaline Phosphatase 73 U/L (38-126); Anion Gap 8 mmol/L (8-16); Aspartate Amino Transferase 27 U/L (14-36); Bilirubin,Total 0.6 mg/dL (0.2-1.3); Blood Urea Nitrogen 12 mg/dL (7-17); Calcium 7.5 mg/dL (8.4-10.2); Carbon Dioxide 30 mmol/L (22-30); Chloride 101 mmol/L (98-107); Estimated CRCL calculation 186 ml/min; Estimated Glomerular Filt Rate > 60; Glucose 109 mg/dL (65-110); Magnesium 2.1 mg/dL (1.6-2.3); Phosphorus 4.2 mg/dL (2.5-4.5); Potassium 3.2 mmol/L (3.4-5.0); Sodium 139 mmol/L (137-145); Triglycerides 169 mg/dL (<150)
[2022-03-18 04:26] LABS: Hematocrit 28.5 % (37.0-47.0); Hemoglobin 9.1 g/dL (12.0-15.0); Mean Corpuscular HGB Conc 31.9 g/dl (32-36); Mean Corpuscular Hemoglobin 27.3 pg (26-34); Mean Corpuscular Volume 85.6 fl (80-100); Mean Platelet Volume 9.6 fl (7.4-10.4); Platelet Count Result 507 k/mm3 (150-375); Red Blood Count 3.33 M/mm3 (4.2-5.4); White Blood Count 14.3 K/mm3 (4.5-10.0)
[2022-03-18] MEDS: ALBUMIN HUMAN 25% 25 GM/100 ML 100 ML IVPB ×3 (04:28→17:22)
[2022-03-18] MEDS: metroNIDAZOLE 500 MG/ISO 100ML 500 MG/100 ML BAG 100 MG IVPB ×3 (05:16→22:05)
[2022-03-18] MEDS: CENTRAL LINE FLUSH 10 ML IV PUSH ×3 (05:16→22:06)
[2022-03-18 05:52] LABS: Alveolar/Arterial O2 Gradient 90.6 mmHg; Base Excess ABG 4.4 mEq/l (+/-2.0); Carboxyhemoglobin 0.2 % THb (0-2.0); Fractional Inspired Oxygen 35 %; HCO3 ABG 29.5 mEq/l (22.0-26.0); Methemoglobin ABG 0.4 %THb (0-1.5); Oxygen Content ABG 13.3 %vol (16.0-22.0); Oxygen Saturation ABG 97.8 % (95.0-100.0); Oxyhemoglobin 96.2 % THb (90.0-100.0); PCO2 ABG 46.9 mmHg (35.0-45.0); PO2 ABG 104.4 mmHg (80.0-100.0); PO2 FiO2 Ratio Arterial Blood 2.98 %; Reduced Hemoglobin 3.2 %THb (0-5.0); Total Hemoglobin 9.7 g/dL (12.0-18.0); pH ABG 7.417 (7.350-7.450)
[2022-03-18 05:53] LABS: Arterial Blood Gas Vent Mode CMV; Arterial Blood Gas Ventilator rate 18 /MIN; Device VENTILATOR; Modified Allen's Test Unable to perform; Site Drawn RIGHT RADIAL
[2022-03-18 05:54] LABS: Arterial Blood Gas PEEP 8 cmH2O; Arterial Blood Gas Tidal Volume 360 ml
[2022-03-18] MEDS: FENTANYL 2,500MCG/NS250ML(*CRX 2,500 MCG/250 ML BAG 20 MCG IV CONT ×2 (06:21→18:17)
[2022-03-18] MEDS: MIDAZOLAM 100MG/NS 100ML(*CRX) 100 MG/100 ML BAG 10 MG IV CONT ×2 (08:09→17:21)
[2022-03-18] MEDS: ENOXAPARIN 40 MG/0.4 ML SYRINGE SUB-Q (08:11)
[2022-03-18] MEDS: PANTOPRAZOLE SODIUM IV 40 MG VIAL IV PUSH (08:11)
[2022-03-18] MEDS: MINERAL OIL/WHITE PETROLATUM OINTMENT 1 APPLIC EACH EYE ×2 (08:12→21:30)
--- NOTE | 2022-03-18 09:50 | PM.IMPN ---
Progress Note: A&P Assessment and Plan (1) Acute respiratory failure: Code(s): J96.00 - Acute respiratory failure, unspecified whether with hypoxia or hypercapnia Status: Acute Assessment and Plan: MSSA pneumonia, ARDS, component of pulmonary edema 03/14: intubated and placed on mechanical ventilation. -sedated with propofol Versed and fentanyl Chest x-ray reviewed -advance ET tube by 2 cm 1. Stable diffuse lung disease, consistent with pneumonia. 2. Worsened moderate-sized loculated left pleural effusion. Continue gentle diuresis with Lasix -currently on CMV mode of ventilation Currently on 30 % FiO2 and 10 of PEEP. Decrease PEEP to 8 Continue bronchodilators Continue nafcillin cefepime and Flagyl (2) Septic shock: Code(s): A41.9 - Sepsis, unspecified organism; R65.21 - Severe sepsis with septic shock Status: Acute Assessment and Plan: 03/11: Patient presented with fevers, chills, not feeling well, tachypnea, cough, shortness of breath -likely source pneumonia, UTI, endocarditis -was found to be hypotensive in the ER, was given 2.5 L IV fluid bolus on 03/11, on admission, additional IV fluid bolus was given in the ICU after she was fluid responsive by NICOM -central line was placed in the right femoral vein on 03/11 -patient is off Levophed now -03/11 blood cultures growing Staph aureus 2/2 bottles, (oxacillin sensitive Staph aureus) -03/11 urine cultures no growth -03/11/2022 echocardiogram: LV chamber dimension is mildly enlarged, LV systolic function is normal EF 60-65%, LV diastolic function is normal -03/13: patient was initially on vancomycin and Zosyn, both of them were discontinued and patient was started on Nafcillin 2 g IV q.4 hours. 03/13 repeat blood cultures are growing Staph aureus -03/15 DEMI done today showed no significant vegetations suggesting against endocarditis 03/15 -repeat blood culture sent and are negative till now 03/15 -upper extremity Dopplers were done and were negative for DVT (3) Pneumonia: Code(s): J18.9 - Pneumonia, unspecified organism Status: Acute Assessment and Plan: MSSA pneumonia, possible aspiration component -continue antibiotics as above -03/11/2022 CT scan chest/abdomen/pelvis did not show any pulmonary embolism, diffuse lung disease likely a combination of pulmonary edema pneumonia, small right and moderate size left pleural effusion, small pericardial effusion. Mediastinal left supraclavicular and pratima portal lymphadenopathy likely reactive. Cholelithiasis, 4.8 cm mass in left ovary, most likely hemorrhagic cyst, pelvic ultrasound recommended, moderate splenomegaly (4) UTI (urinary tract infection): Code(s): N39.0 - Urinary tract infection, site not specified Status: Acute Assessment and Plan: UA was reflective of a UTI, but urine culture was negative antibiotics as above, cultures negative (5) Drug abuse: Code(s): F19.10 - Other psychoactive substance abuse, uncomplicated Status: Acute Assessment and Plan: Urine drug screen was positive for opiates and amphetamines -patient does admit to methamphetamine use and IV fentanyl use. When asked if she shares needles she did say yes -will watch for withdrawal -03/14: Urine drug screen was negative Continue fentanyl to prevent withdrawal Hepatitis C antibody positive. RNA pending HIV screen negative (6) Swelling of lower extremity: Code(s): M79.89 - Other specified soft tissue disorders Status: Acute Assessment and Plan: Bilateral lower extremity pitting edema with multiple skin lesions -patient denies any pets at home -she does state she picks on her skin on her lower extremities -could be related to cellulitis, right heart failure -proBNP was 412 -03/11/2022 lower extremity venous Dopplers: No deep vein thrombosis -lower extremity skin lesions drying up and improving (7) Thrombocytopenia: Code(s): D69.6 - Thrombocy
[2022-03-18] MEDS: dexmedeTOMIDine 400 MCG/100 ML 400 MCG/100 ML BAG IV CONT (11:00)
[2022-03-18] MEDS: CALCIUM GLUC 2,000 MG/NS 100ML 2,000 MG/100 ML BAG 100 MG IVPB (11:02)
[2022-03-18] MEDS: POTASSIUM CHLORIDE 20 MEQ PACKET (FOR LIQUID) 40 MEQ FEED TUBE ×2 (11:02→15:48)
--- NOTE | 2022-03-18 12:04 | PM.PNGS ---
Progress Note: A&P Assessment and Plan (1) Empyema: Code(s): J86.9 - Pyothorax without fistula Status: Acute Plan largely resolved s/p thoracentesis, cont serial exams, imaging, may need CT if reaccumulates, cont abx, await cx, WBC trending down Subjective Subjective Date/Time Seen: 03/18/22 12:04 no acute issues, still vented, WBC sl down, thoracentesis yest Review of Systems Review of Systems: ROS unobtainable: Yes unobtainable due to endotracheal tube Exam Const: General: patient obtunded Other: intubated, sedated Chest: Chest palpation & inspection: normal inspection of the chest Resp: Auscultation: crackles and diminished lung sounds Cardio: Rate: regular rate Rhythm: regular rhythm GI: Inspection: normal to inspection Objective Data Vital Signs Vital Signs: Vital Signs - 24 hr 03/17/22 12:20 03/17/22 12:20 03/17/22 12:20 Temperature Pulse Rate 104 H 106 H 106 H Respiratory Rate 24 H 26 H 26 H Blood Pressure Pulse Oximetry Oxygen Delivery Fraction of Inspired Oxygen 03/17/22 13:13 03/17/22 13:13 03/17/22 13:13 Temperature Pulse Rate 105 H 105 H 105 H Respiratory Rate 25 H 25 H 24 H Blood Pressure Pulse Oximetry Oxygen Delivery Fraction of Inspired Oxygen 03/17/22 13:13 03/17/22 13:59 03/17/22 14:00 Temperature Pulse Rate 105 H 103 H 101 H Respiratory Rate 24 H 98 H Blood Pressure Pulse Oximetry 98 Oxygen Delivery Mechanical Ventilation Fraction of Inspired Oxygen 30 03/17/22 14:00 03/17/22 14:00 03/17/22 14:06 Temperature 37.9 C H Pulse Rate 100 100 100 Respiratory Rate 18 18 Blood Pressure 110/59 L Pulse Oximetry 100 Oxygen Delivery Fraction of Inspired Oxygen 03/17/22 16:00 03/17/22 16:00 03/17/22 16:00 Temperature 37.9 C H Pulse Rate 114 H Respiratory Rate 18 Blood Pressure 128/67 Pulse Oximetry 95 95 Oxygen Delivery Mechanical Ventilation Fraction of Inspired Oxygen 30 30 03/17/22 16:30 03/17/22 16:30 03/17/22 16:34 Temperature 37.9 C H Pulse Rate 115 H 115 H Respiratory Rate 30 H 30 H Blood Pressure Pulse Oximetry Oxygen Delivery Fraction of Inspired Oxygen 03/17/22 16:40 03/17/22 16:41 03/17/22 16:57 Temperature Pulse Rate 118 H 115 H 122 H Respiratory Rate 30 H 30 H Blood Pressure Pulse Oximetry 94 Oxygen Delivery Mechanical Ventilation Fraction of Inspired Oxygen 30 03/17/22 16:00 03/17/22 17:34 03/17/22 17:49 Temperature 38.0 C H Pulse Rate 115 H 121 H Respiratory Rate 32 H Blood Pressure Pulse Oximetry Oxygen Delivery Fraction of Inspired Oxygen 03/17/22 18:00 03/17/22 18:00 03/17/22 18:16 Temperature 38.1 C H Pulse Rate 115 H 115 H 106 H Respiratory Rate 30 H 30 H Blood Pressure 139/70 Pulse Oximetry 95 Oxygen Delivery Fraction of Inspired Oxygen 03/17/22 18:17 03/17/22 18:17 03/17/22 18:45 Temperature Pulse Rate 106 H 106 H 109 H Respiratory Rate 30 H 30 H 30 H Blood Pressure Pulse Oximetry Oxygen Delivery Fraction of Inspired Oxygen 03/17/22 18:45 03/17/22 18:46 03/17/22 18:46 Temperature Pulse Rate 109 H 106 H 106 H Respiratory Rate 30 H 30 H 30 H Blood Pressure Pulse Oximetry Oxygen Delivery Fraction of Inspired Oxygen 03/17/22 18:46 03/17/22 19:50 03/17/22 19:51 Temperature Pulse Rate 106 H 108 H 109 H Respiratory Rate 30 H 34 H 30 H Blood Pressure Pulse Oximetry Oxygen Delivery Fraction of Inspired Oxygen 03/17/22 19:51 03/17/22 20:27 03/17/22 20:36 Temperature Pulse Rate 110 H 105 H 98 Respiratory Rate 33 H 32 H 27 H Blood Pressure Pulse Oximetry Oxygen Delivery Fraction of Inspired Oxygen 03/17/22 20:48 03/17/22 20:50 03/17/22 21:26 Temperature Pulse Rate 93 92 84 Respiratory Rate 29 H Blood Pressure 77/35 L Pulse Oximetry 93 Oxygen Delivery Mechanica
--- NOTE | 2022-03-18 12:22 | WPDINTPN ---
Progress Note: A&P Assessment and Plan (1) Acute respiratory failure: Code(s): J96.00 - Acute respiratory failure, unspecified whether with hypoxia or hypercapnia Status: Acute Assessment and Plan: MSSA pneumonia, ARDS, component of pulmonary edema 03/14: intubated and placed on mechanical ventilation. -sedated with propofol Versed and fentanyl Chest x-ray reviewed -Persistent diffuse patchy bilateral pulmonary infiltrates and small left pleural effusion? Chest CT 03/17 IMPRESSION: 1. Diffuse lung disease with worsening from 03/11/2022, consistent with pneumonia and superimposed mild pulmonary edema. 2. Worsened small right pleural effusion. Worsened moderate-sized loculated left pleural effusion. Chest CT showed ?scattered nodules in the lungs, many of which are cavitary, consistent with septic emboli. This would fit with MSSA pneumonia from her MSSA bacteremia Patient has been receiving diuresis for volume overload and edema. Hold Lasix today -currently on CMV mode of ventilation. Currently on 40 % FiO2 and 8 of PEEP. Continue bronchodilators Continue nafcillin cefepime and Flagyl See below (2) Septic shock: Code(s): A41.9 - Sepsis, unspecified organism; R65.21 - Severe sepsis with septic shock Status: Acute Assessment and Plan: 03/11: Patient presented with fevers, chills, not feeling well, tachypnea, cough, shortness of breath -likely source pneumonia, UTI, endocarditis -was found to be hypotensive in the ER, was given 2.5 L IV fluid bolus on 03/11, on admission, additional IV fluid bolus was given in the ICU after she was fluid responsive by NICOM -central line was placed in the right femoral vein on 03/11 -patient is off Levophed now -03/11 blood cultures growing Staph aureus 2/2 bottles, (oxacillin sensitive Staph aureus) -03/11 urine cultures no growth -03/11/2022 echocardiogram: LV chamber dimension is mildly enlarged, LV systolic function is normal EF 60-65%, LV diastolic function is normal -03/13: patient was initially on vancomycin and Zosyn, both of them were discontinued and patient was started on Nafcillin 2 g IV q.4 hours. 03/13 repeat blood cultures are growing Staph aureus -03/15 DEMI done today showed no significant vegetations suggesting against endocarditis 03/15 -repeat blood culture sent and are negative till now 03/15 -upper extremity Dopplers were done and were negative for DVT 03/[address] 03/17 IMPRESSION: 1. Diffuse lung disease with worsening from 03/11/2022, consistent with pneumonia and superimposed mild pulmonary edema. 2. Worsened small right pleural effusion. Worsened moderate-sized loculated left pleural effusion. Chest CT showed ?scattered nodules in the lungs, many of which are cavitary, consistent with septic emboli. This would fit with MSSA pneumonia from her MSSA bacteremia In light of loculated left pleural effusion with presence of pneumonia. CT chest was performed. I requested General surgery for chest tube placement for possible empyema. Case was discussed with general surgery and Radiology. Dr. Coy felt that loculations were minimal. Hence the thoracentesis of performed yesterday on the left side. 1 L fluid was removed. Fluid pH was 7.3 suggesting against empyema. [place] chills showed high neutrophil count. Gram stain is negative except WBCs. Cultures and other studies are pending Consult pulmonary (3) Pneumonia: Code(s): J18.9 - Pneumonia, unspecified organism Status: Acute Assessment and Plan: MSSA pneumonia, possible aspiration component -continue antibiotics as above (4) UTI (urinary tract infection): Code(s): N39.0 - Urinary tract infection, site not specified Status: Acute Assessment and Plan: UA was reflective of a UTI, but urine culture was negative antibiotics as above, cultures negative (5) Drug abuse: Code(s): F19.10 - Other psychoactive substance abuse, uncomplicated Status: Acute
[2022-03-18 13:50] LABS: Hepatitis C RNA, Quant PCR 863 IU/mL
--- NOTE | 2022-03-18 18:41 | PM.CNPUL ---
Assessment and Plan Assessment and plan (1) Acute respiratory failure: Code(s): J96.00 - Acute respiratory failure, unspecified whether with hypoxia or hypercapnia Status: Acute (2) Empyema: Code(s): J86.9 - Pyothorax without fistula Status: Acute (3) Bacteremia: Code(s): R78.81 - Bacteremia Status: Acute Assessment and Plan: this 31-year-old female with history of IV drug use presented with febrile illness, positive Staph aureus bacteremia on 2 occasions, multiple bilateral lung nodules with recent chest CT showing increase in the number of lung nodules over last week with several nodules being cavitated, increasing loculated left pleural effusion which is probably complicated parapneumonic but not empyema by pH. The patient has been evaluated for possible endocarditis with recent DEMI showing no evidence of valve vegetations. She remains febrile, ventilator dependent, hemodynamically unstable despite treatment with nafcillin, Metronidazole and cefepime. In the setting of chronic IV drug use, the patient's clinical presentation in conjunction with positive cultures for Staph aureus on 2 occasions during the fist 2 days into hospitalization and more importantly the chest imaging findings of typical septic emboli (numerous lung nodules with cavitation) makes the diagnosis of right-sided endocarditis highly likely. I think the patient meets the criteria for right-sided infective endocarditis in the presence of negative echocardiography. Consultation with infection disease specialist may be necessary.. I will repeat blood cultures despite the patient is on antibiotics to exclude persistent bacteremia that is often seen in patients with right-sided endocarditis. In addition I would remove the central line and insert a new line, preferably PICC line. I would culture the catheter tip. Of note, the current IV central line was inserted when the patient had already positive blood cultures and bacteria seeding is possible. Will repeat sputum culture as patient has new right lower lobe infiltrate which probably is due to nosocomial pneumonia. Depending upon the results of sputum culture I would adjust the antibiotics. Left pleural thoracentesis showed a neutrophilic effusion but the normal pH makes a complicated parapneumonic effusion more likely than empyema. However, the patient will need repeat thoracentesis to monitor pH for empyema while waiting for the remaining pleural fluid tests like glucose, LDH. In the setting of R sided endocarditis, recurrent pulmonary emboli and persistent bacteremia are associated with high mortality and patient may need evaluation by cardiac surgery. Consider repeating echocardiography. Monitor for signs of heart failure. Ordered BNP and inflammatory indices. (4) Drug abuse: Code(s): F19.10 - Other psychoactive substance abuse, uncomplicated Status: Acute (5) Sepsis: Code(s): A41.9 - Sepsis, unspecified organism Status: Acute (6) Pneumonia: Code(s): J18.9 - Pneumonia, unspecified organism Status: Acute History of Present Illness History of Present Illness Consult date: 03/18/22 Chief complaint: sepsis,pneumonia Narrative: This 31-year-old female presented 1 week ago with complaints of fever, lower extremity swelling, chills, and diffuse pain. This consultation report is based on information obtained from patient's records and after talking to the control manager as patient is currently fully sedated and mechanically ventilated in the intensive care unit. The patient's symptoms reportedly started approximately 7 days prior to coming to the hospital. Her medical history was positive for IV drug use, smoking cigarettes and also smoking methamphetamines on a daily basis, using IV fentanyl as well needle sharing. She had no history of cocaine use or any other use of illicit street drugs. The patient also complained of lavern
[2022-03-18 21:26] LABS: NT Pro B Type Natriuretic Pept 1470 pg/mL (5-100)
[2022-03-18 21:30] LABS: CRP 22.6 mg/dL (<1.0)
[2022-03-18] MEDS: dexmedeTOMIDine 400 MCG/100 ML 400 MCG/100 ML BAG 19.31 MCG IV CONT (21:34)
[2022-03-18 22:18] LABS: Appearance Urine Clear (Clear); Bilirubin Urine Negative (Negative); Blood Urine Negative (Negative); Color Urine Yellow (Yellow); Glucose Urine UA Negative (Negative); Ketones Urine Negative (Negative); Leukocyte Esterase Ur Negative LEU/UL (NEGATIVE); Nitrate Urine Negative (Negative); Protein Urine Negative (Negative); Specific Grav Ur 1.015 (1.001-1.035); Urobilinogen Urine 0.2 mg/dL (<2.0); pH Urine 5.5 (5.0-9.0)
[2022-03-18 22:20] LABS: Add Urine Microscopic? NO
[2022-03-19] VITALS (91 sets, daily range): BP systolic 77–129; BP diastolic 32–98; PULSE 77–124; RESP 20–46; TEMP 36.9–38.4; O2SAT 93–100; BMI 26.4
--- NOTE | 2022-03-19 | ECHO_ITS ---
Patient Info Name: Val Don Age: 31 years : 1990 Gender: Female Ht: 71 in Wt: 189 lbs BSA: 2.08 m2 HR: 102 bpm Heart Rhythm: Sinus Rhythm, Tachycardia Exam Date: 03/19/2022 2:31 PM Exam Location: [facility] Pulmonary Patient Status: Inpatient Admit Date: 03/11/2022 Staff Ordering Physician: Kenny Bah MD [employer]ractor Operator: Esdras Gupta, CHENCHO, RT Attending Provider: Farrukh Bonilla MD Referring Physician: Niurka CULVER; Exam Type: CA echo doppler color flow Study Info Complete two-dimensional, color flow and Doppler transthoracic echocardiogram is performed with contrast to opacify the left ventricle and to improve the deliniation of the left ventricle endocardial borders. Summary 1. Left ventricular systolic function is normal, estimated at 60-65%. 2. Right ventricular systolic function is normal. 3. No significant valvular disease noted. 4. Cannot exclude valvular vegetations. Left Ventricle Left ventricular chamber dimension is normal. Left ventricular systolic function is normal, estimated at 60-65%. There is no increased left ventricular wall thickness. Right Ventricle Right ventricular chamber dimension is normal. Right ventricular systolic function is normal. Left Atria Left atrial chamber dimension is normal. Right Atria Right atrial chamber dimension is normal. Atrial Septum Intact interatrial septum visualized by color flow imaging. Aortic Valve The aortic valve is trileaflet. There is no aortic valve stenosis. There is no aortic valve regurgitation. Pulmonic Valve The pulmonic valve is not well visualized. Mitral Valve The mitral valve has normal leaflets. There is no mitral valve stenosis. There is trace mitral valve regurgitation. Tricuspid Valve The tricuspid valve leaflets are normal. There is no significant tricuspid valve stenosis. There is trace tricuspid valve regurgitation. Pericardium/Pleural There is no pericardial effusion. Inferior Vena Cava Dilated inferior vena cava with <50% collapse upon inspiration consistent with elevated right atrial pressure. Aorta The aortic root size at the sinus of Valsalva is normal. Left Ventricular Outflow Tract Name Value Normal LVOT 2D LVOT Diameter 2.0 cm LVOT Doppler LVOT Peak Gradient 7 mmHg LVOT Mean Gradient 4 mmHg LVOT VTI 24 cm LVOT VTI/AV VTI Ratio 1.0 LVOT Stroke Volume 73 ml LVOT CO 8.1 l/min LVOT CI 3.9 l/min/m2 Mitral Valve Name Value Normal MV Doppler MV Decel Randolph 733 cm/s2 MV PHT 41 ms MV Area (PHT) 5.3 cm2 4.0-5.0
[2022-03-19] MEDS: ALBUMIN HUMAN 25% 25 GM/100 ML 100 ML IVPB ×3 (00:51→13:14)
[2022-03-19] MEDS: dexmedeTOMIDine 400 MCG/100 ML 400 MCG/100 ML BAG 19.31 MCG IV CONT (02:43)
[2022-03-19] MEDS: LEVALBUTEROL NEB 1.25 MG/3 ML 0.63 MG INHALATION ×3 (03:06→14:32)
[2022-03-19] MEDS: IPRATROPIUM BR 0.02% INH SOLN 0.5 MG/2.5 ML VIAL INHALATION ×3 (03:06→14:32)
[2022-03-19] MEDS: PROPOFOL IV EMULSION 100 ML 20.69 MG IV CONT ×3 (03:47→11:11)
[2022-03-19] MEDS: MIDAZOLAM 100MG/NS 100ML(*CRX) 100 MG/100 ML BAG 10 MG IV CONT ×2 (03:51→13:49)
[2022-03-19 04:53] LABS: Hematocrit 22.8 % (37.0-47.0); Hemoglobin 7.3 g/dL (12.0-15.0); Mean Corpuscular Volume 84.4 fl (80-100); Mean Platelet Volume 9.6 fl (7.4-10.4); Platelet Count Result 446 k/mm3 (150-375); Red Cell Distribution Width 18.9 % (11.5-14.5); White Blood Count 9.8 K/mm3 (4.5-10.0)
[2022-03-19] MEDS: metroNIDAZOLE 500 MG/ISO 100ML 500 MG/100 ML BAG 100 MG IVPB ×2 (04:59→14:20)
[2022-03-19] MEDS: CENTRAL LINE FLUSH 10 ML IV PUSH ×2 (05:02→13:16)
[2022-03-19 05:11] LABS: Alanine Aminotransferase 8 U/L (6-35); Albumin Level 3.4 g/dL (3.5-5.1); Alkaline Phosphatase 53 U/L (38-126); Anion Gap 8 mmol/L (8-16); Aspartate Amino Transferase 18 U/L (14-36); Bilirubin,Total 0.7 mg/dL (0.2-1.3); Blood Urea Nitrogen 16 mg/dL (7-17); Calcium 7.9 mg/dL (8.4-10.2); Carbon Dioxide 30 mmol/L (22-30); Chloride 105 mmol/L (98-107); Estimated CRCL calculation 186 ml/min; Estimated Glomerular Filt Rate > 60; Glucose 112 mg/dL (65-110); Magnesium 2.1 mg/dL (1.6-2.3); Phosphorus 2.7 mg/dL (2.5-4.5); Potassium 3.2 mmol/L (3.4-5.0); Sodium 143 mmol/L (137-145)
[2022-03-19] MEDS: FENTANYL 2,500MCG/NS250ML(*CRX 2,500 MCG/250 ML BAG 20 MCG IV CONT (06:16)
[2022-03-19 06:48] LABS: Alveolar/Arterial O2 Gradient 133.2 mmHg; Base Excess ABG 6.3 mEq/l (+/-2.0); Fractional Inspired Oxygen 35 %; HCO3 ABG 29.9 mEq/l (22.0-26.0); Oxygen Saturation ABG 95.5 % (95.0-100.0); PCO2 ABG 39.3 mmHg (35.0-45.0); PO2 ABG 70.7 mmHg (80.0-100.0); PO2 FiO2 Ratio Arterial Blood 2.02 %; pH ABG 7.499 (7.350-7.450)
[2022-03-19 07:05] LABS: Device VENTILATOR; Modified Allen's Test Pass; Site Drawn RIGHT RADIAL
[2022-03-19 07:06] LABS: Arterial Blood Gas PEEP 8 cmH2O; Arterial Blood Gas Tidal Volume 360 ml; Arterial Blood Gas Vent Mode CMV; Arterial Blood Gas Ventilator rate 18 /MIN
[2022-03-19] MEDS: MINERAL OIL/WHITE PETROLATUM OINTMENT 1 APPLIC EACH EYE (08:10)
[2022-03-19] MEDS: ACETAMINOPHEN ELIXIR 325 MG/10.15 ML UDC 650 MG PO (08:10)
[2022-03-19] MEDS: PANTOPRAZOLE SODIUM IV 40 MG VIAL IV PUSH (08:11)
--- NOTE | 2022-03-19 09:00 | PM.PNPUL ---
Progress Note: A&P Assessment and Plan (1) Acute respiratory failure: Code(s): J96.00 - Acute respiratory failure, unspecified whether with hypoxia or hypercapnia Status: Acute (2) Bacteremia: Code(s): R78.81 - Bacteremia Status: Acute Assessment and Plan: this 31-year-old female with history of IV drug use presented with febrile illness, positive Staph aureus bacteremia on 2 occasions,? multiple? bilateral lung nodules? with recent chest CT showing increase in the number of lung nodules over last week with several nodules? being cavitated,? increasing loculated left pleural effusion which is probably complicated parapneumonic but not empyema by pH.? The patient has been evaluated for possible endocarditis with recent DEMI showing no evidence of valve? vegetations.? She remains febrile,? ventilator dependent, hemodynamically unstable despite treatment with nafcillin,? Metronidazole and cefepime. ?In the setting of chronic IV drug use, the patient's clinical presentation in conjunction with positive cultures for Staph aureus on 2 occasions during the fist 2 days into hospitalization? and more importantly the chest imaging? findings of typical? septic emboli (numerous lung nodules with cavitation) ? makes the diagnosis of right-sided endocarditis highly likely.? I think the patient? meets the criteria for right-sided infective endocarditis in the presence? of? negative echocardiography. ? over the last 12 hours the respiratory status and in general the patient's clinical condition has been unchanged. WBC is back into normal range but patient spiked temperature over 38 degrees C this a.m.. Chest x-ray showed bilateral lung infiltrates and moderately large left pleural effusion as before. Sputum culture pending, blood cultures drawn last night also pending. Case was discussed with the audiology assistant and also Dr. Bah. It appears as though the patient is on right treatment for Staph aureus right-sided endocarditis as blood cultures had become negative following initiation of nafcillin 12 g daily several days ago. repeat echocardiogram will not guide treatment but only provide assurance that there has not been any damage to R heart structures related to infection. (3) Empyema: Code(s): J86.9 - Pyothorax without fistula Status: Acute Assessment and Plan: there is moderately large loculated left pleural effusion that has increased in size since admission as shown by last chest CT. On thoracentesis the pleural fluid was neutrophilic but pH was normal. Gram stain showed no organisms, but present WBCs. final culture report not out yet. Fluid glucose and LDH still pending. Since the pleural effusion is loculated and has increased in size since admission and patient is febrile, I would recommend chest tube drainage on left rather than repeat thoracentesis. (4) Hepatitis C: Code(s): B19.20 - Unspecified viral hepatitis C without hepatic coma Status: Acute (5) Drug abuse: Code(s): F19.10 - Other psychoactive substance abuse, uncomplicated Status: Acute (6) Sepsis: Code(s): A41.9 - Sepsis, unspecified organism Status: Acute Subjective Date/time seen: 03/19/22 09:00 Clinical condition essentially unchanged over the last a 12 hours. Patient remains fully sedated on mechanical ventilation. Spiked a temperature to over 38? C this a.m.. Hemodynamically stable on Levophed and 3 antibiotics. Pleural fluid glucose LDH still pending. Chest x-ray unchanged over the last 24 hours. Review of Systems Review of Systems: ROS unobtainable: Yes unobtainable due to endotracheal tube, unobtainable due to medical condition and unobtainable due to mental status Exam Narrative: GENERAL APPEARANCE: Well developed, well nourished, sedated intubated in the intensive care unit SKIN: Inspection of the skin showed multiple crusty lesions in lower extremities, old scarred round lesio
--- NOTE | 2022-03-19 10:02 | PM.IMPN ---
Progress Note: A&P Assessment and Plan (1) Acute respiratory failure: Code(s): J96.00 - Acute respiratory failure, unspecified whether with hypoxia or hypercapnia Status: Acute Assessment and Plan: MSSA pneumonia, ARDS, component of pulmonary edema 03/14: intubated and placed on mechanical ventilation. -sedated with propofol Versed and fentanyl Chest CT 03/17 IMPRESSION: 1. Diffuse lung disease with worsening from 03/11/2022, consistent with pneumonia and superimposed mild pulmonary edema. 2. Worsened small right pleural effusion. Worsened moderate-sized loculated left pleural effusion. Chest CT showed ?scattered nodules in the lungs, many of which are cavitary, consistent with septic emboli. This would fit with MSSA pneumonia from her MSSA bacteremia -currently on CMV mode of ventilation. Currently on 40 % FiO2 and 8 of PEEP. Continue bronchodilators Continue nafcillin cefepime and Flagyl See below (2) Septic shock: Code(s): A41.9 - Sepsis, unspecified organism; R65.21 - Severe sepsis with septic shock Status: Acute Assessment and Plan: 03/11: Patient presented with fevers, chills, not feeling well, tachypnea, cough, shortness of breath -likely source pneumonia, UTI, endocarditis -was found to be hypotensive in the ER, was given 2.5 L IV fluid bolus on 03/11, on admission, additional IV fluid bolus was given in the ICU after she was fluid responsive by NICOM -central line was placed in the right femoral vein on 03/11 -patient is off Levophed now -03/11 blood cultures growing Staph aureus 2/2 bottles, (oxacillin sensitive Staph aureus) -03/11 urine cultures no growth -03/11/2022 echocardiogram: LV chamber dimension is mildly enlarged, LV systolic function is normal EF 60-65%, LV diastolic function is normal -03/13: patient was initially on vancomycin and Zosyn, both of them were discontinued and patient was started on Nafcillin 2 g IV q.4 hours. 03/13 repeat blood cultures are growing Staph aureus -03/15 DEMI done today showed no significant vegetations suggesting against endocarditis 03/15 -repeat blood culture sent and are negative till now 03/15 -upper extremity Dopplers were done and were negative for DVT 03/[address] 03/17 IMPRESSION: 1. Diffuse lung disease with worsening from 03/11/2022, consistent with pneumonia and superimposed mild pulmonary edema. 2. Worsened small right pleural effusion. Worsened moderate-sized loculated left pleural effusion. Chest CT showed ?scattered nodules in the lungs, many of which are cavitary, consistent with septic emboli. This would fit with MSSA pneumonia from her MSSA bacteremia status post thoracentesis Consult pulmonary (3) Pneumonia: Code(s): J18.9 - Pneumonia, unspecified organism Status: Acute Assessment and Plan: MSSA pneumonia, possible aspiration component -continue antibiotics as above (4) UTI (urinary tract infection): Code(s): N39.0 - Urinary tract infection, site not specified Status: Acute Assessment and Plan: UA was reflective of a UTI, but urine culture was negative antibiotics as above, cultures negative (5) Drug abuse: Code(s): F19.10 - Other psychoactive substance abuse, uncomplicated Status: Acute Assessment and Plan: Urine drug screen was positive for opiates and amphetamines Continue fentanyl to prevent withdrawal Hepatitis C antibody positive. RNA pending HIV screen negative (6) Swelling of lower extremity: Code(s): M79.89 - Other specified soft tissue disorders Status: Acute Assessment and Plan: Bilateral lower extremity pitting edema with multiple skin lesions -could be related to cellulitis, right heart failure -proBNP was 412 -03/11/2022 lower extremity venous Dopplers: No deep vein thrombosis -lower extremity skin lesions drying up and improving (7) Thrombocytopenia: Code(s): D69.6 - Thrombocytopenia, unspecified Status: A
--- NOTE | 2022-03-19 10:09 | PCNFU ---
Nutrition Follow-Up Complete: Inadequate energy intake related to NPO status, mechanical ventilation as evidenced by need for full tube feeding. Goal: Meet estimated protein energy requirements - Goal being met per tube feeding Pt current nutrition is Vital High Protein @ goal rate 60 ml/h. Flushes 30 ml q 4 hours Total kcals with propofol 1866 kcal, 115 g protein, 1280 ml/day total water. Nutrition recommendation: Continue current tube feeding orders and flushes. If pt has to go on pressors, decrease TF to trickle feed, until pressors are stable or titrated off. Last recorded weight is 86.1 kg. Bowel Motility: +1 BM 03/18 Labs Reviewed: Alb 3.4, K+ 3.2, Crea 0.4 Meds Noted:Precedex, Fentanyl, versed, propofol @ 20.69 ml/h = 546 kcals Skin:Edema Additional Notes: Tolerating TF well/ Consider increasing rate of Vital High Protein if propofol continues to titrate down. Communication with RN Mary who says propofol continues to fluctuate so continue tube feeding at same rate for now. Monitoring tube feeding tolerance, weights, labs, plan of care, meds. Follow daily in ICU rounds and reassess and Fridays per policy.
[2022-03-19] MEDS: POTASSIUM CHLORIDE 20 MEQ PACKET (FOR LIQUID) 40 MEQ FEED TUBE (10:17)
[2022-03-19] MEDS: KCL 40 MEQ/WATER 100 ML 100 ML 25 ML IVPB (10:17)
[2022-03-19] MEDS: dexmedeTOMIDine 400 MCG/100 ML 400 MCG/100 ML BAG 23.6 MCG IV CONT ×2 (11:12→15:48)
--- NOTE | 2022-03-19 11:39 | WPDINTPN ---
Progress Note: A&P Assessment and Plan (1) Acute respiratory failure: Code(s): J96.00 - Acute respiratory failure, unspecified whether with hypoxia or hypercapnia Status: Acute Assessment and Plan: MSSA pneumonia, ARDS, component of pulmonary edema 03/14: intubated and placed on mechanical ventilation. -sedated with propofol Versed Precedex and fentanyl Chest x-ray reviewed -Persistent diffuse patchy bilateral pulmonary infiltrates and small left pleural effusion? Chest CT 03/17 IMPRESSION: 1. Diffuse lung disease with worsening from 03/11/2022, consistent with pneumonia and superimposed mild pulmonary edema. 2. Worsened small right pleural effusion. Worsened moderate-sized loculated left pleural effusion. Chest CT showed ?scattered nodules in the lungs, many of which are cavitary, consistent with septic emboli. This would fit with MSSA pneumonia from her MSSA bacteremia Patient has been receiving diuresis for volume overload and edema. Hold Lasix at this time -currently on CMV mode of ventilation. Currently on 40 % FiO2 and 8 of PEEP. Continue bronchodilators Continue nafcillin cefepime and Flagyl See below (2) Septic shock: Code(s): A41.9 - Sepsis, unspecified organism; R65.21 - Severe sepsis with septic shock Status: Acute Assessment and Plan: 03/11: Patient presented with fevers, chills, not feeling well, tachypnea, cough, shortness of breath -likely source pneumonia, UTI, endocarditis -was found to be hypotensive in the ER, was given 2.5 L IV fluid bolus on 03/11, on admission, additional IV fluid bolus was given in the ICU after she was fluid responsive by NICOM -central line was placed in the right femoral vein on 03/11 -patient is off Levophed now -03/11 blood cultures growing Staph aureus 2/2 bottles, (oxacillin sensitive Staph aureus) -03/11 urine cultures no growth -03/11/2022 echocardiogram: LV chamber dimension is mildly enlarged, LV systolic function is normal EF 60-65%, LV diastolic function is normal -03/13: patient was initially on vancomycin and Zosyn, both of them were discontinued and patient was started on Nafcillin 2 g IV q.4 hours. 03/13 repeat blood cultures are growing Staph aureus -03/15 DEMI done today showed no significant vegetations suggesting against endocarditis 03/15 -repeat blood culture sent and are negative till now 03/15 -upper extremity Dopplers were done and were negative for DVT 03/[address] 03/17 IMPRESSION: 1. Diffuse lung disease with worsening from 03/11/2022, consistent with pneumonia and superimposed mild pulmonary edema. 2. Worsened small right pleural effusion. Worsened moderate-sized loculated left pleural effusion. Chest CT showed ?scattered nodules in the lungs, many of which are cavitary, consistent with septic emboli. This would fit with MSSA pneumonia from her MSSA bacteremia In light of loculated left pleural effusion with presence of pneumonia. CT chest was performed. I requested General surgery for chest tube placement for possible empyema. Case was discussed with general surgery and Radiology. Dr. Coy felt that loculations were minimal. Hence the thoracentesis of performed yesterday on the left side. 1 L fluid was removed. Fluid pH was 7.3 suggesting against empyema. [place] chills showed high neutrophil count. Gram stain is negative except WBCs. Cultures and other studies are pending Consulted pulmonary and discussed case with Dr. Dukes. Since other studies from pleural fluid is still pending, he recommends chest tube placement for drainage. Consult General surgery for chest tube placement. Dr. Healy recommends evaluation by thoracic surgery. Will try to transfer patient to a facility with thoracic surgery and Infectious Disease consultation. Place PICC line and remove femoral central venous catheter as cultures have been negative now Will discuss with Cardiology regarding utility of repeat DEMI (3) Pneumonia: Code(s): J18.9 - Pneumo
--- NOTE | 2022-03-19 11:50 | PM.PNGS ---
Progress Note: A&P Assessment and Plan (1) Empyema: Code(s): J86.9 - Pyothorax without fistula Status: Acute Assessment and Plan: slowly reaccumulation of effusion on L, will place CT at bedside Subjective Subjective Date/Time Seen: 03/19/22 11:50 no acute issues overnight, still intubated, sedated Review of Systems Review of Systems: All systems reviewed & are unremarkable except as noted in HPI and below Exam Const: Other: intubated, sedated Resp: Auscultation: crackles and diminished lung sounds Other: L>R Cardio: Rate: tachycardic Rhythm: regular rhythm GI: Inspection: normal to inspection Objective Data Vital Signs Vital Signs: Vital Signs - 24 hr 03/18/22 12:00 03/18/22 12:00 03/18/22 12:00 Temperature 36.8 C Pulse Rate 125 H 128 H Respiratory Rate 20 29 H Blood Pressure 134/69 Pulse Oximetry 96 96 Oxygen Delivery Mechanical Ventilation Fraction of Inspired Oxygen 40 40 03/18/22 13:29 03/18/22 14:33 03/18/22 14:36 Temperature Pulse Rate 96 107 H 107 H Respiratory Rate 28 H 29 H 29 H Blood Pressure Pulse Oximetry Oxygen Delivery Fraction of Inspired Oxygen 03/18/22 13:55 03/18/22 14:00 03/18/22 12:00 Temperature Pulse Rate 123 H 105 H 128 H Respiratory Rate 30 H Blood Pressure 119/67 Pulse Oximetry 98 95 Oxygen Delivery Mechanical Ventilation Fraction of Inspired Oxygen 35 03/18/22 14:00 03/18/22 12:00 03/18/22 12:01 Temperature Pulse Rate 111 H 128 H 128 H Respiratory Rate 28 H 25 H Blood Pressure 134/69 Pulse Oximetry 94 96 Oxygen Delivery Fraction of Inspired Oxygen 03/18/22 12:15 03/18/22 12:30 03/18/22 12:45 Temperature Pulse Rate 125 H 123 H 124 H Respiratory Rate 31 H 23 H 33 H Blood Pressure Pulse Oximetry 95 96 96 Oxygen Delivery Fraction of Inspired Oxygen 03/18/22 13:00 03/18/22 13:01 03/18/22 13:15 Temperature Pulse Rate 123 H 126 H 124 H Respiratory Rate 34 H 27 H 34 H Blood Pressure 135/71 Pulse Oximetry 95 96 96 Oxygen Delivery Fraction of Inspired Oxygen 03/18/22 13:30 03/18/22 13:45 03/18/22 14:00 Temperature Pulse Rate 120 H 111 H 111 H Respiratory Rate 32 H 23 H 33 H Blood Pressure 129/74 Pulse Oximetry 96 97 97 Oxygen Delivery Fraction of Inspired Oxygen 03/18/22 14:01 03/18/22 16:41 03/18/22 16:00 Temperature Pulse Rate 112 H 110 H 103 H Respiratory Rate 33 H 30 H Blood Pressure 109/66 Pulse Oximetry 96 97 97 Oxygen Delivery Mechanical Ventilation Fraction of Inspired Oxygen 35 03/18/22 16:00 03/18/22 16:00 03/18/22 16:00 Temperature Pulse Rate 100 100 Respiratory Rate 33 H Blood Pressure Pulse Oximetry 100 Oxygen Delivery Mechanical Ventilation Fraction of Inspired Oxygen 40 40 03/18/22 18:00 03/18/22 18:00 03/18/22 17:00 Temperature Pulse Rate 97 99 102 H Respiratory Rate 28 H Blood Pressure 103/59 L Pulse Oximetry 97 Oxygen Delivery Fraction of Inspired Oxygen 03/18/22 18:17 03/18/22 18:17 03/18/22 20:56 Temperature Pulse Rate 97 97 87 Respiratory Rate 31 H 31 H 19 Blood Pressure Pulse Oximetry Oxygen Delivery Fraction of Inspired Oxygen 03/18/22 20:00 03/18/22 20:00 03/18/22 20:00 Temperature Pulse Rate 95 Respiratory Rate Blood Pressure Pulse Oximetry 95 Oxygen Delivery Mechanical Ventilation Mechanical Ventilation Fraction of Inspired Oxygen 35 35 35 03/18/22 23:53 03/18/22 20:00 03/18/22 22:00 Temperature Pulse Rate 88 93 88 Respiratory Rate Blood Pressure Pulse Oximetry 97 Oxygen Delivery Mechanical Ventilation Fraction of Inspired Oxygen 35 03/19/22 00:00 03/19/22 00:00 03/19/22 00:00 Temperature Pulse Rate 87 Respiratory Rate Blood Pressure Pulse Oximetry Oxygen Delivery Mechanical Ventilation Fraction of Inspired Oxygen 35 35 03/18/22
[2022-03-19 13:07] LABS: Hematocrit 23.1 % (37.0-47.0); Hemoglobin 7.2 g/dL (12.0-15.0); Mean Corpuscular HGB Conc 31.2 g/dl (32-36); Mean Corpuscular Hemoglobin 27.3 pg (26-34); Mean Corpuscular Volume 87.5 fl (80-100); Mean Platelet Volume 9.7 fl (7.4-10.4); Platelet Count Result 457 k/mm3 (150-375); Red Blood Count 2.64 M/mm3 (4.2-5.4); White Blood Count 9.9 K/mm3 (4.5-10.0)
--- NOTE | 2022-03-19 13:11 | P.OP_ITS ---
Procedure Note - Detailed Date of Procedure 03/19/22 Pre-op Diagnosis sepsis, recurrent left pleural effusion Post-op Diagnosis Same Procedure Performed placement of 28 nepali left chest tube Surgeon Lily Fisher MD Anesthesia General Indications 31 y/o F presenting c sepsis, resp failure and L sided pleural effusion. Pt had thoracentesis 03/17 but now c reaccumulation. Findings serous pleural effusion Description of Procedure Patient was placed in the supine position and consent was obtained. I began by localizing the left chest at the area of our anticipated incision, at the level of the nipple and anterior axillary line. I then prepped and draped the area. A time-out was done to verify the patient's identity, as well as the procedure being performed. I then made an incision with a 15 blade scalpel at the level the nipple and anterior axillary. This incision was carried down to the chest cavity. I then used a Rosy clamp to gain access into the chest at the 4th intercostal space. Immediately upon getting into the chest a large amount of serous effusion was drained. I then placed a 28 Mongolian chest tube directing this posterior and inferior. I then sutured the chest tube in place. Vaseline gauze and sterile dressing were applied and the chest tube was connected to the atrium device. The patient tolerated the procedure well. Implants Left-sided 28 Mongolian chest tube Estimated Blood Loss 5 Drains No Packing No Pathology None sent Complications No immediate complications Condition Stable Disposition ICU [facility] Billing Surgery - Charge Forward: Surgery Billing
--- NOTE | 2022-03-19 13:12 | PM.PNCARD ---
Progress Note: A&P Assessment and Plan (1) Sepsis: Code(s): A41.9 - Sepsis, unspecified organism Status: Acute Assessment and Plan: . Certainly there is some concern of right-sided septic emboli. Previous DEMI performed. Tricuspid valve does look very clean. Pulmonic valve in my opinion is not very well visualized at least per images captured. I did personally reviewed the previous DEMI. I will repeat a transthoracic echocardiogram as right-sided heart valves can sometimes be better imaged via TTE. Patient is also in the process of being transferred to [place].. Obviously repeat DEMI can be performed there if need be and is reasonable to do so depending on what is found by DEMI (2) Drug abuse: Code(s): F19.10 - Other psychoactive substance abuse, uncomplicated Status: Acute (3) Chest pain: Code(s): R07.9 - Chest pain, unspecified Status: Acute (4) Hypokalemia: Code(s): E87.6 - Hypokalemia Status: Acute Assessment and Plan: KCL 40 mg p.o. x1 Subjective Date/time seen: 03/19/22 13:12 Interval history: 31-year-old woman who has a longstanding history of intravenous drug abuse with needle sharing behavior.? She is in the hospital with sepsis bacteremic with Staph aureus and concern is regarding the possibility of bacterial endocarditis. Date of service 03/13/2022: She denies any chest pain or shortness breath Date of service 03/14/2022: She is currently tachypneic. She also is complaining of some chest pain and is diaphoretic. Date of service 03/19/2022: currently intubated sedated. a repeat DEMI is ordered and requested. No significant arrhythmia Review of Systems Review of Systems: All systems reviewed & are unremarkable except as noted in HPI and below ROS unobtainable: Yes unobtainable due to endotracheal tube ENT: Reports Normal hearing present Respiratory: Respiratory: Reports dyspnea Gastrointestinal: Gastrointestinal: Denies abdominal pain Genitourinary: Genitourinary: Denies hematuria Musculoskeletal: Musculoskeletal: Denies back pain Integumentary/Breasts: Skin/Breast: Denies wounds Neurologic: Reports Normal hearing present and Denies Abnormal speech present Psychiatric: Psychiatric: Denies anxiety Endocrine: Endocrine: Denies change in body appearance Hematologic/Lymphatic: Hematologic/Lymphatic: Denies easy bleeding Allergic/Immunologic: Allergic/Immunologic: Denies GI upset with certain foods Exam Narrative: Awake alert. Appears older than stated age Const: Other: intubated and sedated HENMT: Face/Nose/Sinus: Normal nares present Other: ET tube in place Eyes: Sclera: sclerae normal Neck: Neck: supple Carotids: no bruits Resp: Effort & Inspection: normal respiratory effort Other: Chest tube in place Cardio: Rate: regular rate Rhythm: regular rhythm GI: GI Palp: Yes Soft to palpation Skin: General skin exam: normal color Neuro: Other: Sedated Extrem: General: normal to inspection Psych: Affect: normal affect Objective Data Vital Signs Vital Signs: Vital Signs - 24 hr 03/18/22 13:29 03/18/22 14:33 03/18/22 14:36 Temperature Pulse Rate 96 107 H 107 H Respiratory Rate 28 H 29 H 29 H Blood Pressure Pulse Oximetry Oxygen Delivery Fraction of Inspired Oxygen 03/18/22 13:55 03/18/22 14:00 03/18/22 14:00 Temperature Pulse Rate 123 H 105 H 111 H Respiratory Rate 30 H Blood Pressure 119/67 Pulse Oximetry 98 95 Oxygen Delivery Mechanical Ventilation Fraction of Inspired Oxygen 35 03/18/22 13:15 03/18/22 13:30 03/18/22 13:45 Temperature Pulse Rate 124 H 120 H 111 H Respiratory Rate 34 H 32 H 23 H Blood Pressure Pulse Oximetry 96 96 97 Oxygen Delivery Fraction of Inspired Oxygen 03/18/22 14:00 03/18/22 14:01 03/18/22 16:41 Temperature Pulse Rate 111 H 112 H 110 H Respiratory Rate 33 H 33 H Blood Pressure 129/74 Puls
[2022-03-19] MEDS: ENOXAPARIN 40 MG/0.4 ML SYRINGE SUB-Q (13:14)
[2022-03-19 13:18] LABS: EDCOVIDSCREEN Negative (Negative)
--- NOTE | 2022-03-19 13:29 | PM.EVENT ---
Event Note Event Note Event Note: Chest tube placed on left side by general surgery PICC line placed on left side Patient needs additional access due to being on multiple drips. Peripheral IV was unsuccessful. Midline placed on right side additional IV access Remove central venous catheter
[2022-03-19 14:28] LABS: Glucose Point of Care 127 mg/dl (65-105)
[2022-03-19] MEDS: PERFLUTREN LIPID MICROSPHERES 1.5 ML VIAL DILUTED TO 10 ML TOTAL VOLUME IV PUSH (14:44)
--- NOTE | 2022-03-19 14:45 | IVDEFINITY ---
Prior to administration of IV Definity the patient was educated on the risks and benefits of the imaging enhancing agent including potential adverse side effects. The patient verbalized understanding. Allergies were verified. No exclusion criteria were identified and at least one of the following inclusion criteria were met: 1) physician request, 2) patient technically difficult to image (per the [place] [employer] guidelines of two or more segments not discernable within the apical view), or 3) questionable left ventricular function. ?
[2022-03-19] MEDS: PROPOFOL IV EMULSION 100 ML 29.55 MG IV CONT (15:49)
--- NOTE | 2022-03-19 18:11 | PC.NURSE ---
Report called to Izzy LO at [facility] , called and updated Marium on patients room number, phone number, and address
--- NOTE | 2022-03-19 18:12 | PC.NURSE ---
TERESITA Brown pulled propofol and precedex gtt for transport to [place]
[2022-03-22 23:29] LABS: Albumin Pleural Fluid 1.8 g/dL
[2022-03-23 06:36] LABS: Glucose Pleural Fluid 39 mg/dL; Total Protein Pleural Fluid <3.0 g/dL
--- NOTE | 2022-05-20 17:05 | PM.TDS ---
Transfer Discharge Sum: Prov Provider Date of admission: 03/11/22 07:30 Primary care physician: UNKNOWN,DOCTOR Admitting clinician: Lane Sims MD Consults: 03/11/22 07:31 Consult to Physician Routine Comment: Consulting Provider: Cristi Hernandez Reason for consultation: Sepsis, ICU patient Has provider been notified: Yes 03/11/22 10:51 Consult to Physician Routine Comment: spoke with dr @ 1101 (, ) Consulting Provider: Jw Flores machine scallop cutter/MD group to consult: [employer] Reason for consultation: ovarian mass likely hemorrhagic cyst Has provider been notified: Yes 03/12/22 10:19 Consult to Physician Routine Comment: Consulting Provider: Byron Fisher machine scallop cutter/MD group to consult: cardiology Reason for consultation: DEMI for possible endocarditis, Has provider been notified: Yes 03/14/22 Consult to Physician Routine Comment: Consulting Provider: Cristi Hernandez Reason for consultation: Respiratory failure Has provider been notified: Yes 03/17/22 Consult to Physician Routine Comment: Consulting Provider: Lily Fisher machine scallop cutter/MD group to consult: General Surgery Reason for consultation: Empyema, Left Chest Tube Has provider been notified: Yes 03/18/22 Consult to Physician Routine Comment: Consulting Provider: Tl Dukes machine scallop cutter/MD group to consult: Pulmonary Reason for consultation: Left pleural effusion, MSSA pneumonia Has provider been notified: Yes DS: Admitting Diagnosis Discharge Date 03/19/22 Admitting Diagnosis sepsis DS: Discharge Diagnosis Discharge Diagnosis (1) Encephalopathy: Code(s): G93.40 - Encephalopathy, unspecified Status: Acute Assessment and Plan: Patient has been difficult to sedate for mechanical ventilation. Despite high sedation patient gets often asynchronous with the ventilator. Patient was given rocuronium few times has she was desaturating and was not synchronous with the ventilator. Continue Precedex to trying to wean of other sedative (2) Empyema: Code(s): J86.9 - Pyothorax without fistula Status: Acute (3) Acute respiratory failure: Code(s): J96.00 - Acute respiratory failure, unspecified whether with hypoxia or hypercapnia Status: Acute Assessment and Plan: MSSA pneumonia, ARDS, component of pulmonary edema 03/14: intubated and placed on mechanical ventilation. -sedated with propofol Versed Precedex and fentanyl Chest x-ray reviewed -Persistent diffuse patchy bilateral pulmonary infiltrates and small left pleural effusion? Chest CT 03/17 IMPRESSION: 1. Diffuse lung disease with worsening from 03/11/2022, consistent with pneumonia and superimposed mild pulmonary edema. 2. Worsened small right pleural effusion. Worsened moderate-sized loculated left pleural effusion. Chest CT showed ?scattered nodules in the lungs, many of which are cavitary, consistent with septic emboli. This would fit with MSSA pneumonia from her MSSA bacteremia Patient has been receiving diuresis for volume overload and edema. Hold Lasix at this time -currently on CMV mode of ventilation. Currently on 40 % FiO2 and 8 of PEEP. Continue bronchodilators Continue nafcillin cefepime and Flagyl See below (4) Septic shock: Code(s): A41.9 - Sepsis, unspecified organism; R65.21 - Severe sepsis with septic shock Status: Acute Assessment and Plan: 03/11: Patient presented with fevers, chills, not feeling well, tachypnea, cough, shortness of breath -likely source pneumonia, UTI, endocarditis -was found to be hypotensive in the ER, was given 2.5 L IV fluid bolus on 03/11, on admission, additional IV fluid bolus was given in the ICU after she was fluid responsive by NICOM -central line was placed in the right femoral vein on 03/11 -patient is off Levophed now -03/11 blood cultures growing Staph aureus 2/2 bottles, (oxacillin sensitive Staph aureus) -03/11 urine cu
== END 2022-03-19 18:01 | disposition short-term general hospital (02) | DRG 720 ==
LOC: ANHED 07:28 → ANHICU 07:45 → ANHIMU 03-13 12:00 → ANHICU 03-14 10:34
PROVIDERS: Chiropractor; Internal Medicine; Internal Medicine Cardiovascular Disease; Internal Medicine Pulmonary Disease; Specialist; Admitting Provider Internal Medicine; Emergency Provider Emergency Medicine; Visit Provider Hospitalist
PROC: B24BZZ4 Ultrasonography of Heart with Aorta, Transesophageal (ICD-10-PCS; CPT 93312; principal; 2022-03-15 08:30)
DX: A41.01 Sepsis due to Methicillin susceptible Staphylococcus aureus (principal); R65.21 Severe sepsis with septic shock; J80 Acute respiratory distress syndrome; I76 Septic arterial embolism; I33.0 Acute and subacute infective endocarditis; G93.40 Encephalopathy, unspecified; J91.8 Pleural effusion in other conditions classified elsewhere; J15.211 Pneumonia due to Methicillin susceptible Staphylococcus aureus; D69.59 Other secondary thrombocytopenia; F19.10 Other psychoactive substance abuse, uncomplicated; B19.20 Unspecified viral hepatitis C without hepatic coma; N83.202 Unspecified ovarian cyst, left side; E87.6 Hypokalemia; Z20.822 Contact with and (suspected) exposure to COVID-19; Z91.018 Allergy to other foods
CPT/HCPCS: 31500; 32555; 36415; 36556; 36569; 36600; 71045; 71250; 71275; 74177; 76830; 76856; 80048; 80053; 80074; 80202; 80307; 81001; 81003; 82042; 82375; 82805; 82945; 82947; 82948; 83050; 83605; 83615; 83690; 83735; 83880; 83986; 84100; 84145; 84155; 84157; 84478; 84484; 85025; 85027; 85055; 85610; 85652; 85730; 86140; 86703; 87015; 87040; 87070; 87075; 87077; 87086; 87102; 87116; 87147; 87186; 87205; 87206; 87426; 87502; 87522; 89051; 93005; 93306; 93312; 93320; 93325; 93970; 94002; 94003; 94640; 96361; 96365; 96366; 96368; 96375; 99291; A9270; C1729; C1751; C9113; C9803; G0432; J0131; J0610; J0692; J1650; J1741; J1940; J2060; J2250; J2310; J2405; J2543; J2704; J3010; J3370; J3475; J3480; J7030; J7040; J7050; P9045; P9047; Q9957; Q9967; U0003; U0005